=== PATIENT | male | born 1960 | race Caucasian/White ===

== ENCOUNTER 2017-02-19 02:16 | Emergency (ER) | payer MEDICARE, MEDICAID ==
--- NOTE | 2017-02-19 04:20 | ER Document Report ---
ED Extremity Problem, Upper - General Chief Complaint: Shoulder Pain Stated Complaint: SHOULDER PAIN Time Seen by Provider: 02/19/17 03:35 Mode of Arrival: Ambulatory Information source: Patient Notes: 56-year-old man presents to ED for right shoulder pain. He states he dislocated visit in October and has had pain off and on since then. He states she has Parkinson's and this makes the pain in his shoulder worse. He thinks the last couple days it is jumped out of its socket again and now the pain is worse. TRAVEL OUTSIDE OF THE [place] IN LAST 30 DAYS: No - HPI Patient complains to provider of: Shoulder Onset: Other - Overall days Recent injury: No Where: Home Quality of pain: Achy, Sharp Severity of pain: Severe Pain Level: 5 Associated symptoms: None Exacerbated by: Movement Relieved by: Rest, Positioning Similar symptoms previously: Yes Recently seen / treated by doctor: No - Related Data Allergies/Adverse Reactions: Penicillins Allergy (Unknown, Verified 02/19/17 05:07) Anaphylaxis Past Medical History - General Information source: Patient - Social History Smoking Status: Never Smoker Cigarette use (# per day): No Chew tobacco use (# tins/day): No Smoking Education Provided: No Frequency of alcohol use: None Drug Abuse: None Occupation: disability Lives with: Alone Family History: Reviewed & Not Pertinent Patient has suicidal ideation: No Patient has homicidal ideation: No - Past Medical History Cardiac Medical History: Reports: Hx Hypertension Pulmonary Medical History: Reports: None EENT Medical History: Reports: None Neurological Medical History: Reports: Other - Parkinson's Endocrine Medical History: Reports: None Renal/ Medical History: Reports: None Malignancy Medical History: Reports None GI Medical History: Reports: None Musculoskeltal Medical History: Reports Hx Arthritis, Reports Hx Musculoskeletal Deformity, Reports Hx Musculoskeletal Trauma Skin Medical History: Reports None Psychiatric Medical History: Reports: None Traumatic Medical History: Reports: Hx Fractures Infectious Medical History: Reports: None Past Surgical History: Reports: Hx Orthopedic Surgery - Herniated disc to the neck and lumbar area repaired, Other - Cataracts Review of Systems - Review of Systems Constitutional: No symptoms reported EENT: No symptoms reported Cardiovascular: No symptoms reported Respiratory: No symptoms reported Gastrointestinal: No symptoms reported Genitourinary: No symptoms reported Male Genitourinary: No symptoms reported Musculoskeletal: Joint pain - Right shoulder pain and stiffness Skin: No symptoms reported Hematologic/Lymphatic: No symptoms reported Neurological/Psychological: Tremor - Parkinson's Physical Exam - Vital signs Vitals: Temp Pulse Resp BP Pulse Ox 98.9 F 93 20 143/85 H 98 02/19/17 02:21 02/19/17 02:21 02/19/17 02:21 02/19/17 02:21 02/19/17 02:21 Interpretation: Normal - General General appearance: Appears well, Alert - HEENT Head: Normocephalic, Atraumatic Eyes: Normal Pupils: PERRL - Respiratory Respiratory status: No respiratory distress Chest status: Nontender Breath sounds: Normal Chest palpation: Normal - Cardiovascular Rhythm: Regular Heart sounds: Normal auscultation Murmur: No - Abdominal Inspection: Normal Distension: No distension Bowel sounds: Normal Tenderness: Nontender Organomegaly: No organomegaly - Back Back: Normal, Nontender - Extremities General upper extremity: Normal inspection, Normal color, Normal temperature General lower extremity: Normal inspection, Nontender, Normal color, Normal ROM , Normal temperature, Normal weight bearing. No: America's sign Shoulder: Tender, Limited ROM - Neurological Neuro grossly intact: Yes Cognition: Normal Orientation: AAOx4 [place] Coma Scale Eye Opening: Spontaneous [place] Coma Scale Verbal: Oriented Jose G Coma Scale Motor: Obeys Commands Jose G Coma Scale Total: 15 Speech: Normal Motor strength normal: LUE, RUE, LLE, RLE Sensory: Normal - Psychological Associated symptoms: Normal affect, Normal mood - Skin Skin Temperature: Warm Skin Moisture: Dry Skin Color: Normal Course - Vital Signs Vital signs: Temp Pulse Resp BP Pulse Ox 97.6 F 84 20 137/95 H 94 02/19/17 05:59 02/19/17 05:59 02/19/17 05:59 02/19/17 05:59 02/19/17 05:59 - Diagnostic Test Radiology reviewed: Image reviewed, Reports reviewed Discharge - Discharge Clinical Impression: Right shoulder pain Qualifiers: Chronicity: acute Qualified Code(s): M25.511 - Pain in right shoulder Condition: Stable Disposition: HOME, SELF-CARE Instructions: Use of Emol-Dtc-Jcdzdkl Ibuprofen ([facility]), Family Physicians / Practices Additional Instructions: You were seen today for pain in your right shoulder. Your x-ray negative for any acute injury, you do have degenerative changes to your shoulder. Acetaminophen Acetaminophen may be taken for pain relief or fever control. It's much safer than aspirin, offering a wider range of "safe" dosages. It is safe during . Some brand names are Tylenol, Panadol, Datril, Anacin 3, Tempra, and Liquiprin. Acetaminophen can be repeated every four hours. The following are maximum recommended dosages: WEIGHT Dose Drops Elixir Chewable( 80mg) (LBS.) drprs=droppers tsp=teaspoon 6 40 mg .4 ml (1/2) 6-11 80 mg .8 ml (full) 1/2 tsp 1 tab 12-16 120 mg 1 1/2 drprs 3/4 tsp 1 1/2 tabs 17-23 160 mg 2 drprs 1 tsp 2 tabs 24-30 240 mg 3 drprs 1 1/2 tsp 3 tabs 30-35 320 mg 2 tsp 4 tabs 36-41 360 mg 2 1/4 tsp 4 1 /2 tabs 42-47 400 mg 2 1/2 tsp 5 tabs 48-53 480 mg 3 tsp 6 tabs 54-59 520 mg 3 1/4 tsp 6 1 /2 tabs 60-64 560 mg 3 1/2 tsp 7 tabs 65-70 600 mg 3 3/4 tsp 7 1 /2 tabs 71-76 640 mg 4 tsp 8 tabs 77-82 720 mg 4 1/2 tsp 9 tabs 83-88 800 mg 5 tsp 10 tabs >89 pounds or adults 650 mg to 900 mg Acetaminophen can be repeated every four hours. Maximum daily dose not to exceed 4000 mg. These maximum recommended dosages are slightly higher than the dosages written on the product container, but these dosages are very safe and well below the toxic dosage for acetaminophen. FOLLOW-UP CARE: If you have been referred to a physician for follow-up care, call the physician s office for an appointment as you were instructed or within the next two days. If you experience worsening or a significant change in your symptoms, notify the physician immediately or return to the Emergency Department at any time for re-evaluation. Forms: Elevated Blood Pressure Referrals: STEPHANIE DENSON DO [ACTIVE STAFF] - Follow up as needed
--- NOTE | 2017-02-19 04:37 | RADIOLOGY REPORT (SQ) ---
EXAM DESCRIPTION: SHOULDER RIGHT 2 OR MORE VIEWS COMPLETED DATE/TIME: 02/19/2017 4:27 am REASON FOR STUDY: pain and decreased rom COMPARISON: None. NUMBER OF VIEWS: Three views. TECHNIQUE: Internal rotation, external rotation, and Y view images acquired of the right shoulder. LIMITATIONS: None. FINDINGS: MINERALIZATION: Normal. BONES: No acute fracture or dislocation. No worrisome bone lesions. Inferior osteophytes in the gleno humeral joint. GLENOHUMERAL JOINT: Inferior osteophytes. ACROMIOCLAVICULAR JOINT: No large osteophytes. SOFT TISSUES: No calcifications. VISUALIZED RIBS, SPINE, AND LUNG: No other significant finding. OTHER: No other significant finding. IMPRESSION: DEGENERATIVE CHANGES. NO ACUTE FINDINGS. TECHNICAL DOCUMENTATION: JOB ID: [id number] [employer]- All Rights Reserved
[2017-02-19 06:01] VITALS: BP 137/95
== END 2017-02-19 05:59 | disposition home or self-care (01) ==
LOC: ER 02:16
DX: M25.511 Pain in right shoulder (principal); G20 Parkinson's disease; I10 Essential (primary) hypertension; Z87.892 Personal history of anaphylaxis; Z88.0 Allergy status to penicillin
CPT/HCPCS: 99283

== ENCOUNTER → 2017-03-05 | Outpatient (CLI) | payer MEDICARE, MEDICAID ==
--- NOTE | 2017-03-05 11:24 | RADIOLOGY REPORT (SQ) ---
EXAM DESCRIPTION: ANKLE RIGHT COMPLETE COMPLETED DATE/TIME: 03/05/2017 11:16 am REASON FOR STUDY: PAIN IN RIGHT ANKLE AND JOINTS OF RIGHT FOOT M25.571 PAIN IN RIGHT ANKLE AND JOIN TS OF RIGHT FOOT COMPARISON: None. NUMBER OF VIEWS: Three views. TECHNIQUE: AP, lateral, and oblique radiographic images acquired of the right ankle. LIMITATIONS: None. FINDINGS: MINERALIZATION: Normal. BONES: Deformity of the medial malleolus which is presumed related to old trauma. Hardware in the di stal fibula. No acute fracture or dislocation. No worrisome bone lesions. JOINTS: No effusions. SOFT TISSUES: No soft tissue swelling. No foreign body. OTHER: No other significant finding. IMPRESSION: OLD TRAUMATIC CHANGES AND HARDWARE. NO DEFINITE ACUTE FINDINGS. TECHNICAL DOCUMENTATION: JOB ID: [id number] [employer]- All Rights Reserved
== END ==
LOC: OD 10:54
PROVIDERS: ATTEND Family Medicine
DX: M25.571 Pain in right ankle and joints of right foot (principal)

== ENCOUNTER 2017-03-20 11:37 | Emergency (ER) | payer MEDICARE, MEDICAID ==
--- NOTE | 2017-03-20 12:33 | ER Document Report ---
HPI - HPI Patient complains to provider of: right ankle pain Pain Level: 4 Context: 56 yo male c/o pain to right ankle. pt reports he flexed his ankle and felt snap. has pain to medial ankle. also c/o ? infected bug bite to lateral ankle Associated Symptoms: None Exacerbated by: Walking Relieved by: Denies Similar symptoms previously: Yes Recently seen / treated by doctor: No - ROS Systems Reviewed and Negative: Yes All other systems reviewed and negative - DERM Skin Color: Normal Past Medical History - General Information source: Patient - Social History Smoking Status: Current Every Day Smoker Frequency of alcohol use: None Drug Abuse: None Lives with: Family Family History: Reviewed & Not Pertinent - Past Medical History Cardiac Medical History: Reports: Hx Hypertension Renal/ Medical History: Denies: Hx Peritoneal Dialysis Musculoskeltal Medical History: Reports Hx Arthritis, Reports Hx Musculoskeletal Deformity, Reports Hx Musculoskeletal Trauma Traumatic Medical History: Reports: Hx Fractures Past Surgical History: Reports: Hx Orthopedic Surgery - Herniated disc to the neck and lumbar area repaired, Other - Cataracts Vertical Provider Document - CONSTITUTIONAL Agree With Documented VS: Yes Exam Limitations: No Limitations - INFECTION CONTROL TRAVEL OUTSIDE OF THE [place] IN LAST 30 DAYS: No - HEENT HEENT: Atraumatic, PERRLA - NECK Neck: Normal Inspection, Supple - RESPIRATORY Respiratory: Breath Sounds Normal O2 Sat by Pulse Oximetry: 93 - CARDIOVASCULAR Cardiovascular: Regular Rate, Regular Rhythm - MUSCULOSKELETAL/EXTREMETIES Musculoskeletal/Extremeties: Tender - right medial malleolus., No Edema. negative: Eccymosis - DERM Integumentary: Warm, Dry - discrete hemorrhagic papular lesion to lateral ankle. no induration or fluctuance Course - Re-evaluation Re-evalutation: 03/20/17 12:32 no fracture. results reviewed with patient. stable for discharge - Vital Signs Vital signs: Temp Pulse Resp BP Pulse Ox 97.6 F 90 18 123/82 93 03/20/17 11:47 03/20/17 11:47 03/20/17 11:47 03/20/17 11:47 03/20/17 11:47 Procedures - Immobilization right ankle Pre-Proc Neuro Vasc Exam: Normal Immobilizer type: Andrea wrap Performed by: PCT Post-Proc Neuro Vasc Exam: Normal Discharge - Discharge Clinical Impression: Insect bite (nonvenomous), right ankle, initial encounter Right ankle sprain Qualifiers: Encounter type: initial encounter Involved ligament of ankle: unspecified ligament Qualified Code(s): S93.401A - Sprain of unspecified ligament of right ankle, initial encounter Condition: Stable Disposition: HOME, SELF-CARE Instructions: Ice Packs ([facility]), Sprained Ankle ([facility]), Andrea Wrap ([facility]), Ice & Elevation ([facility]), Antibiotic Ointment Protection ([facility]) Additional Instructions: Your xrays are negative for fracture wear andrea wrap for comfort and protection ice and elevate ankle as much as possible apply antibiotic ointment to insect bite apply moist heat to insect bite follow up with primary care if symptoms persist Prescriptions: Mupirocin Calcium [Bactroban 2% Cream 15 gm] 1 applic TP DAILY PRN #1 tube PRN Reason:
--- NOTE | 2017-03-20 12:34 | RADIOLOGY REPORT (SQ) ---
EXAM DESCRIPTION: ANKLE RIGHT COMPLETE COMPLETED DATE/TIME: 03/20/2017 12:18 pm REASON FOR STUDY: pain and injury COMPARISON: 03/05/2017 NUMBER OF VIEWS: Three views. TECHNIQUE: AP, lateral, and oblique radiographic images acquired of the right ankle. LIMITATIONS: None. FINDINGS: MINERALIZATION: Normal. BONES: Compression plate on the distal fibula. There are changes in the medial malleolus suggestive of a prior fracture with nonunion. There is no interval change since March 05. JOINTS: No effusions. SOFT TISSUES: No soft tissue swelling. No foreign body. OTHER: No other significant finding. 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 Correlate clinically. TECHNICAL DOCUMENTATION: JOB ID: [id number] [employer]- All Rights Reserved
[2017-03-20 13:29] VITALS: BP 121/82
== END 2017-03-20 13:25 | disposition home or self-care (01) ==
LOC: ER 11:37
DX: S93.401A Sprain of unspecified ligament of right ankle, initial encounter (principal); X58.XXXA Exposure to other specified factors, initial encounter; S90.561A Insect bite (nonvenomous), right ankle, initial encounter; W57.XXXA Bitten or stung by nonvenomous insect and other nonvenomous arthropods, initial encounter; M25.571 Pain in right ankle and joints of right foot; I10 Essential (primary) hypertension; F17.200 Nicotine dependence, unspecified, uncomplicated
CPT/HCPCS: 99283

== ENCOUNTER 2017-04-11 15:52 | Emergency (ER) | payer MEDICARE, MEDICAID ==
[2017-04-11 16:15] VITALS: BP 148/89
--- NOTE | 2017-04-11 17:54 | RADIOLOGY REPORT (SQ) ---
EXAM DESCRIPTION: ANKLE RIGHT COMPLETE COMPLETED DATE/TIME: 04/11/2017 5:44 pm REASON FOR STUDY: increase in pain to right ankle COMPARISON: 03/20/2017 and 03/05/2017. NUMBER OF VIEWS: Three views. TECHNIQUE: AP, lateral, and oblique radiographic images acquired of the right ankle. LIMITATIONS: None. FINDINGS: MINERALIZATION: Normal. BONES: No acute fracture or dislocation. Stable hardware in the distal fibula. Old posttraumatic fi ndings of the medial malleolus. No worrisome bone lesions. Incidental heel spur. JOINTS: No effusions. SOFT TISSUES: No soft tissue swelling. No foreign body. OTHER: No other significant finding. IMPRESSION: STABLE SURGICAL CHANGES WITH HARDWARE AND OLD POSTTRAUMATIC FINDINGS. NO CHANGE. NO AC [place] FINDINGS. TECHNICAL DOCUMENTATION: JOB ID: [id number] [employer]- All Rights Reserved
--- NOTE | 2017-04-11 18:31 | ER Document Report ---
ED Extremity Problem, Lower - General Chief Complaint: Ankle Pain Stated Complaint: RIGHT ANKLE PAIN Time Seen by Provider: 04/11/17 16:34 Mode of Arrival: Ambulatory Information source: Patient Notes: 56-year-old male presents to ED for count complaint of continued right ankle pain. He has a history of a fracture and surgery to this right ankle and states that he thinks he has injured his previous injury. He states it feels like the porfirio is slipped in his ankle. He states he has increased pain when he ambulates. TRAVEL OUTSIDE OF THE [place] IN LAST 30 DAYS: No - HPI Patient complains to provider of: Pain Location: Ankle Occurred: Other - This is a chronic problem that he states increased in pain 4 days ago he has been seen previously for the same pain with repeat x-rays. Onset/Duration: Worse Quality of pain: Sharp Severity: Moderate Pain Level: 3 Recent injury: No Associated symptoms: Painful ambulation Exacerbated by: Movement, Walking Relieved by: Nothing - Related Data Allergies/Adverse Reactions: Penicillins Allergy (Unknown, Verified 04/11/17 16:11) Anaphylaxis Past Medical History - General Information source: Patient - Social History Smoking Status: Former Smoker Cigarette use (# per day): No Chew tobacco use (# tins/day): No Smoking Education Provided: No Frequency of alcohol use: None Drug Abuse: None Lives with: Alone Family History: CAD, Hyperlipidemia, Hypertension, Malignancy. denies: Arthritis, COPD, CVA, Thyroid Disfunction Patient has suicidal ideation: No Patient has homicidal ideation: No - Past Medical History Cardiac Medical History: Reports: Hx Hypertension Pulmonary Medical History: Reports: None EENT Medical History: Reports: None Neurological Medical History: Reports: Other - Parkinson's Endocrine Medical History: Reports: None Renal/ Medical History: Reports: None. Denies: Hx Peritoneal Dialysis Malignancy Medical History: Reports None GI Medical History: Reports: None Musculoskeltal Medical History: Reports Hx Arthritis, Reports Hx Musculoskeletal Deformity, Reports Hx Musculoskeletal Trauma Skin Medical History: Reports None Psychiatric Medical History: Reports: None Traumatic Medical History: Reports: Hx Fractures Infectious Medical History: Reports: None Past Surgical History: Reports: Hx Orthopedic Surgery - Herniated disc to the neck and lumbar area repaired, Other - Cataracts - Immunizations Immunizations up to date: Yes Hx Diphtheria, Pertussis, Tetanus Vaccination: Yes Review of Systems - Review of Systems Constitutional: No symptoms reported EENT: No symptoms reported Cardiovascular: No symptoms reported Respiratory: No symptoms reported Gastrointestinal: No symptoms reported Genitourinary: No symptoms reported Male Genitourinary: No symptoms reported Musculoskeletal: Other - Right ankle pain Skin: No symptoms reported Hematologic/Lymphatic: No symptoms reported Neurological/Psychological: Tremor - From Parkinson's -: Yes All other systems reviewed and negative Physical Exam - Vital signs Vitals: Temp Pulse Resp BP Pulse Ox 97.6 F 92 20 148/89 H 95 04/11/17 16:11 04/11/17 16:11 04/11/17 16:11 04/11/17 16:11 04/11/17 16:11 Interpretation: Normal - General General appearance: Appears well, Alert - HEENT Head: Normocephalic, Atraumatic Eyes: Normal Pupils: PERRL - Respiratory Respiratory status: No respiratory distress Chest status: Nontender Breath sounds: Normal Chest palpation: Normal - Cardiovascular Rhythm: Regular Heart sounds: Normal auscultation Murmur: No - Abdominal Inspection: Normal Distension: No distension Bowel sounds: Normal Tenderness: Nontender Organomegaly: No organomegaly - Back Back: Normal, Nontender - Extremities General upper extremity: Normal inspection, Nontender, Normal color, Normal ROM , Normal temperature General lower extremity: Normal inspection, Normal color, Normal ROM, Normal temperature. No: America's sign Ankle: Other - Complains of pain when ambulating to his right ankle. He does have a surgical scar to this area. There is no swelling no bruising no signs of any infection no inflammation - Neurological Neuro grossly intact: Yes Cognition: Normal Orientation: AAOx4 Jose G Coma Scale Eye Opening: Spontaneous Jose G Coma Scale Verbal: Oriented [place] Coma Scale Motor: Obeys Commands Jose G Coma Scale Total: 15 Speech: Normal Motor strength normal: LUE, RUE, LLE, RLE Sensory: Normal - Psychological Associated symptoms: Normal affect, Normal mood - Skin Skin Temperature: Warm Skin Moisture: Dry Skin Color: Normal Course - Re-evaluation Re-evalutation: 04/11/17 21:31 Discussed x-ray with patient. Patient instructed to continue using his current pain medicines and to follow-up with his orthopedic surgeon. He states he has an appointment with the surgeon on Saturday. Patient encouraged to please keep this appointment. - Vital Signs Vital signs: Temp Pulse Resp BP Pulse Ox 97.6 F 92 20 148/89 H 95 04/11/17 16:11 04/11/17 16:11 04/11/17 16:11 04/11/17 16:11 04/11/17 16:11 - Diagnostic Test Radiology reviewed: Image reviewed, Reports reviewed Discharge - Discharge Clinical Impression: Right ankle pain Qualifiers: Chronicity: chronic Qualified Code(s): M25.571 - Pain in right ankle and joints of right foot Condition: Stable Disposition: HOME, SELF-CARE Additional Instructions: No changes to your previous x-ray. Follow up with your orthopedic surgeon and continue your current pain medication Ice & Elevation Apply ice packs frequently against the painful area. Many different schedules are recommended, such as "20 minutes on, 20 minutes off" or "one hour ice, two hours rest." If you need to work, you may need to go longer between ice treatments. You should plan to have the area ice packed AT LEAST one- fourth of the time. The ice should be applied over the wrap, tape, or splint, or over a layer of cloth -- not directly against the skin. Some ice bags have a built-in cloth and can be put directly on the skin. Your injured part should be elevated as much as possible over the next 48 hours. Try to keep the injury above the level of the heart. Avoid use of the injured area. Elevation and rest will decrease the swelling. FOLLOW-UP CARE: If you have been referred to a physician for follow-up care, call the physician s office for an appointment as you were instructed or within the next two days. If you experience worsening or a significant change in your symptoms, notify the physician immediately or return to the Emergency Department at any time for re-evaluation. Forms: Elevated Blood Pressure
== END 2017-04-11 19:06 | disposition home or self-care (01) ==
LOC: ER 15:52
DX: M25.571 Pain in right ankle and joints of right foot (principal); G89.29 Other chronic pain; Z87.81 Personal history of (healed) traumatic fracture; Z87.891 Personal history of nicotine dependence
CPT/HCPCS: 99283

== ENCOUNTER → 2017-11-15 | Outpatient (CLI) | payer MEDICARE, MEDICAID ==
[2017-11-15 12:46] LABS: ABSOLUTE EOSINOPHILS # (AUTO) 0.3 10^3/uL (0.0-0.6); ABSOLUTE LYMPHOCYTES (AUTO) 2.8 10^3/uL (0.5-4.7); ABSOLUTE MONOCYTES (AUTO) 0.7 10^3/uL (0.1-1.4); ABSOLUTE NEUT (AUTO) 4.2 10^3/uL (1.7-8.2); BASOPHILS % (AUTO) 0.2 % (0-2); EOSINOPHILS % (AUTO) 3.2 % (0-6); HEMATOCRIT 42.7 % (37.9-51.0); HEMOGLOBIN 14.3 g/dL (13.5-17.0); LYMPHOCYTES % (AUTO) 34.8 % (13-45); MEAN CORPUSCULAR HEMOGLOBIN 29.8 pg (27.0-33.4); MEAN CORPUSCULAR HGB CONC 33.4 g/dL (32.0-36.0); MEAN CORPUSCULAR VOLUME 89 fl (80-97); MONOCYTES % (AUTO) 8.9 % (3-13); PLATELET COUNT 210 10^3/uL (150-450); RED BLOOD COUNT 4.79 10^6/uL (4.35-5.55); RED CELL DISTRIBUTION WIDTH 14.1 % (11.5-14.0); SEGMENTED NEUTROPHILS % (AUTO) 52.9 % (42-78); TOTAL CELLS COUNTED % (AUTO) 100 %
[2017-11-15 13:08] LABS: APPEARANCE,URINE CLEAR; BILIRUBIN,URINE NEGATIVE (NEGATIVE); GLUCOSE, URINE NEGATIVE (NEGATIVE); KETONES,URINE TRACE mg/dL (NEGATIVE); LEUKOCYTE ESTERASE,URINE MODERATE (NEGATIVE); NITRITE,URINE NEGATIVE (NEGATIVE); PROTEIN,URINE NEGATIVE (NEGATIVE); URINE SPECIFIC GRAVITY 1.026
[2017-11-15 13:10] LABS: COLOR,URINE YELLOW
[2017-11-15 13:13] LABS: ANION GAP 15 (5-19); BLOOD UREA NITROGEN 20 mg/dL (7-20); CALCIUM 9.2 mg/dL (8.4-10.2); CARBON DIOXIDE 27 mmol/L (22-30); CHLORIDE 104 mmol/L (98-107); GLUCOSE 94 mg/dL (75-110); POTASSIUM 3.9 mmol/L (3.6-5.0); SODIUM 145.7 mmol/L (137-145)
--- NOTE | 2017-11-15 13:40 | EKG REPORT ---
SEVERITY:- BORDERLINE ECG - SINUS RHYTHM VENTRICULAR PREMATURE COMPLEX PROBABLE LEFT ATRIAL ABNORMALITY : Confirmed by: Aiden Yoo MD 15-Nov-2017 13:39:26
--- NOTE | 2017-11-15 13:40 | RADIOLOGY REPORT (SQ) ---
EXAM DESCRIPTION: CHEST PA/LATERAL COMPLETED DATE/TIME: 11/15/2017 12:34 pm REASON FOR STUDY: PRE-OP COMPARISON: None. EXAM PARAMETERS: NUMBER OF VIEWS: two views TECHNIQUE: Digital Frontal and Lateral radiographic views of the chest acquired. RADIATION DOSE: NA LIMITATIONS: none FINDINGS: LUNGS AND PLEURA: No opacities, masses or pneumothorax. No pleural effusion. MEDIASTINUM AND HILAR STRUCTURES: No masses or contour abnormalities. HEART AND VASCULAR STRUCTURES: Heart normal size. No evidence for failure. BONES: No acute findings. HARDWARE: None in the chest. OTHER: No other significant finding. IMPRESSION: NO SIGNIFICANT RADIOGRAPHIC FINDING IN THE CHEST. TECHNICAL DOCUMENTATION: JOB ID: [id number] [employer]- All Rights Reserved Reading location - IP/workstation name: [email or web address]
== END ==
LOC: OD 11:22
PROVIDERS: ATTEND Orthopaedic Surgery
DX: Z01.818 Encounter for other preprocedural examination (principal); M19.011 Primary osteoarthritis, right shoulder
CPT/HCPCS: 36415; 71046; 80048; 81001; 85025; 93005; 93010

== ENCOUNTER 2017-11-16 04:46 | Emergency (ER) | payer MEDICARE, MEDICAID ==
--- NOTE | 2017-11-16 05:35 | RADIOLOGY REPORT (SQ) ---
EXAM DESCRIPTION: SHOULDER RIGHT 2 OR MORE VIEWS CLINICAL HISTORY: 56 years, Male, possible deformity COMPARISON: None. NUMBER OF VIEWS: 3 LIMITATIONS: None. FINDINGS: Anterior dislocation/subluxation of the right glenohumeral joint. Lower cervical hardware fusion. IMPRESSION: Anterior dislocation/subluxation of the right glenohumeral joint.
[2017-11-16] MEDS ORDERED: FENTANYL CITRATE INJ/PF 100 MCG/2 ML AMPUL IV ONE (05:59)
--- NOTE | 2017-11-16 05:59 | ER Document Report ---
ED Medical Screen (RME) - General Chief Complaint: Shoulder Injury Stated Complaint: SHOULDER INJURY Time Seen by Provider: 11/16/17 05:56 Information source: Patient Notes: Patient states he sat up in bed and felt his right shoulder dislocate. Patient states he has had this problem happen in the past and he frequently requires sedation to have it reduced. Patient has a history of Parkinson's, hypertension , hyperlipidemia. I have greeted and performed a rapid initial assessment of this patient. A comprehensive ED assessment and evaluation of the patient, analysis of test results and completion of the medical decision making process will be conducted by additional ED providers. TRAVEL OUTSIDE OF THE [place] IN LAST 30 DAYS: No - Related Data Allergies/Adverse Reactions: Penicillins Allergy (Unknown, Verified 04/11/17 16:11) Anaphylaxis Past Medical History - Social History Frequency of alcohol use: None Drug Abuse: None - Past Medical History Cardiac Medical History: Reports: Hx Hypertension Renal/ Medical History: Denies: Hx Peritoneal Dialysis Musculoskeltal Medical History: Reports Hx Arthritis, Reports Hx Musculoskeletal Deformity, Reports Hx Musculoskeletal Trauma Traumatic Medical History: Reports: Hx Fractures Past Surgical History: Reports: Hx Orthopedic Surgery - Herniated disc to the neck and lumbar area repaired, Other - Cataracts - Immunizations Immunizations up to date: Yes Hx Diphtheria, Pertussis, Tetanus Vaccination: Yes Physical Exam - Vital signs Vitals: Temp Pulse Resp BP Pulse Ox 98.0 F 98 18 119/87 H 95 11/16/17 04:55 11/16/17 04:55 11/16/17 04:55 11/16/17 04:55 11/16/17 04:55 - Extremities General upper extremity: Tender - right shoulder deformity, tenderness Course - Vital Signs Vital signs: Temp Pulse Resp BP Pulse Ox 98.2 F 82 16 122/88 H 98 11/16/17 05:44 11/16/17 05:44 11/16/17 05:44 11/16/17 05:44 11/16/17 05:44
[2017-11-16] MEDS ORDERED: MORPHINE SULFATE 10 MG/ML INJ IV ONE ×2 (06:33→08:15)
[2017-11-16] MEDS ORDERED: ONDANSETRON HCL INJ/PF 4 MG/2 ML SDV IV ONE (06:33)
[2017-11-16] MEDS ORDERED: NORMAL SALINE 500 ML IV ONE (06:34)
--- NOTE | 2017-11-16 08:16 | RADIOLOGY REPORT (SQ) ---
EXAM DESCRIPTION: CT RT UPPER EXTREMITY WITHOUT COMPLETED DATE/TIME: 11/16/2017 8:02 am REASON FOR STUDY: eval fx/dislocation COMPARISON: 11/16/2017 TECHNIQUE: Axial imaging performed through the rightshoulder with reformatted oblique coronal and ob lique sagittal imaging windowed for bone and soft tissues. All CT scanners at this facility use dose modulation, iterative reconstruction, and/or weight based d osing when appropriate to reduce radiation dose to as low as reasonably achievable (ALARA). [facility]: Dose Right [facility]: CareDose [facility]: Dose Right [facility]: Teradose 4D [facility]: Smart Tesseract Interactive RADIATION DOSE: CT Rad equipment meets quality standard of care and radiation dose reduction techniq ues were employed. CTDIvol: 2.6 mGy. DLP: 60 mGy-cm. mGy. LIMITATIONS: None. FINDINGS: SOFT TISSUES: Unremarkable GLENOHUMERAL JOINT: There is severe osteoarthritic changes with complete loss of joint space. There is impaction of the humeral head upon the glenoid with likely chronic appearing fractures secondary t o this impaction. No definite acute fractures are identified. There is some anterior subluxation of the proximal humeral head in relation to the glenoid. ACROMION AND AC JOINT: Mild to moderate arthrosis ROTATOR CUFF: Limited evaluation GLENOID, LABRUM AND BICEPS: The labrum and biceps tendon are not well evaluated. The glenoid demonst rates bony remodeling, consistent with chronic fracture and arthrosis. OTHER: No other significant finding. IMPRESSION: Severe osteoarthritis of the right glenohumeral joint with anterior subluxation and like ly chronic impaction fractures. No acute, displaced fracture is present. TECHNICAL DOCUMENTATION: JOB ID: [id number] Quality ID # [id number]: Final reports with documentation of one or more dose reduction techniques (e.g., Au tomated exposure control, adjustment of the mA and/or kV according to patient size, use of iterative reconstruction technique) 2010 [employer]- All Rights Reserved Reading location - IP/workstation name: [email or web address]
--- NOTE | 2017-11-16 08:45 | ER Document Report ---
ED General - General Chief Complaint: Shoulder Injury Stated Complaint: SHOULDER INJURY Time Seen by Provider: 11/16/17 05:56 TRAVEL OUTSIDE OF THE [place]. IN LAST 30 DAYS: No - HPI Patient complains to provider of: Right shoulder injury Notes: Patient coming in for right shoulder injury. Patient states he woke up this morning felt pop in his right shoulder is concerned it is dislocated. Patient states his shoulder has been dislocated past. Patient points to use the area most of his pain at supraspinatus or upper shoulder area. Patient states he is has decreased range of motion due to the pain. Patient denies any trauma however states there is a significant pop patient looks uncomfortable upon my evaluation. Patient states he is currently waiting to have surgery by [address] Marquis possibly November 22 3 November 26. Denies fever chills nausea vomiting diarrhea - Related Data Allergies/Adverse Reactions: Penicillins Allergy (Unknown, Verified 04/11/17 16:11) Anaphylaxis Past Medical History - General Information source: Patient - Social History Smoking Status: Never Smoker Chew tobacco use (# tins/day): No Frequency of alcohol use: None Drug Abuse: None Family History: CAD, Hyperlipidemia, Hypertension, Malignancy. denies: Arthritis, COPD, CVA, Thyroid Disfunction Patient has suicidal ideation: No Patient has homicidal ideation: No - Past Medical History Cardiac Medical History: Reports: Hx Hypertension Renal/ Medical History: Denies: Hx Peritoneal Dialysis Musculoskeltal Medical History: Reports Hx Arthritis, Reports Hx Musculoskeletal Deformity, Reports Hx Musculoskeletal Trauma Traumatic Medical History: Reports: Hx Fractures Past Surgical History: Reports: Hx Orthopedic Surgery - Herniated disc to the neck and lumbar area repaired, Other - Cataracts - Immunizations Immunizations up to date: Yes Hx Diphtheria, Pertussis, Tetanus Vaccination: Yes Review of Systems - Review of Systems Constitutional: No symptoms reported EENT: No symptoms reported Cardiovascular: No symptoms reported Respiratory: No symptoms reported Gastrointestinal: No symptoms reported Genitourinary: No symptoms reported Male Genitourinary: No symptoms reported Musculoskeletal: Other - Right shoulder pain Skin: No symptoms reported Hematologic/Lymphatic: No symptoms reported Neurological/Psychological: No symptoms reported -: Yes All other systems reviewed and negative Physical Exam - Vital signs Vitals: Temp Pulse Resp BP Pulse Ox 98.0 F 98 18 119/87 H 95 11/16/17 04:55 11/16/17 04:55 11/16/17 04:55 11/16/17 04:55 11/16/17 04:55 Interpretation: Normal - General General appearance: Appears well, Alert - HEENT Head: Normocephalic, Atraumatic Eyes: Normal Pupils: PERRL - Respiratory Respiratory status: No respiratory distress Chest status: Nontender Breath sounds: Normal Chest palpation: Normal - Cardiovascular Rhythm: Regular Heart sounds: Normal auscultation Murmur: No - Abdominal Inspection: Normal Distension: No distension Bowel sounds: Normal Tenderness: Nontender Organomegaly: No organomegaly - Back Back: Normal, Nontender - Extremities General upper extremity: Nontender, Normal color, Normal temperature. No: Normal inspection - Pain to palpation of the right shoulder with no deformity patient has significant pain to palpation of the supraspinatus muscle. Limited range of motion of the right shoulder cannot raise above 90. Pulses are intact distally. Left shoulder of extremities are unaffected. General lower extremity: Normal inspection, Nontender, Normal color, Normal ROM , Normal temperature, Normal weight bearing. No: [place]'s sign - Neurological Neuro grossly intact: Yes Cognition: Normal Orientation: AAOx4 Jose G Coma Scale Eye Opening: Spontaneous Serafina Coma Scale Verbal: Oriented Serafina Coma Scale Motor: Obeys Commands Jose G Coma Scale Total: 15 Speech: Normal Motor strength normal: LUE, RUE, LLE, RLE Sensory: Normal - Psychological Associated symptoms: Normal affect, Normal mood - Skin Skin Temperature: Warm Skin Moisture: Dry Skin Color: Normal Course - Re-evaluation Re-evalutation: 11/16/17 14:05 Initial x-ray was read as dislocation however my interpretation does not agree with this read. Therefore CT scan was performed showing mild subluxation along with possible chronic fracture of the glenoid. Because of the patient's acute pain this may be more acute. Patient also has does have diffuse osteoarthritis throughout the shoulder. I did discuss the finding of the CT scan with our orthopedist on-call agrees with treatment plan pain medication and sling at this time. Patient will be discharged home - Vital Signs Vital signs: Temp Pulse Resp BP Pulse Ox 97.7 F 76 14 125/73 92 11/16/17 09:40 11/16/17 09:40 11/16/17 09:40 11/16/17 09:40 11/16/17 09:40 Discharge - Discharge Clinical Impression: Severe osteoarthritis Glenoid fracture of shoulder Qualifiers: Encounter type: initial encounter Fracture type: closed Laterality: right Qualified Code(s): S42.141A - Displaced fracture of glenoid cavity of scapula, right shoulder, initial encounter for closed fracture Disposition: SNF-Other Instructions: Oral Narcotic Medication ([facility]), Sling as Treatment ([facility]) Additional Instructions: Your CAT scan of your shoulder today show severe osteoarthritis along with possibly some chronic fractures of the glenoid. No dislocation I did discuss her case with our orthopedic on-call recommends follow-up with Dr. Marquis. He may take the tramadol as prescribed for severe pain would recommend Tylenol Motrin for other regular pain. Return to ER symptoms worsen. Prescriptions: Tramadol HCl [Ultram 50 mg Tablet] 50 mg PO ASDIR PRN #20 tablet PRN Reason:
[2017-11-16 09:17] VITALS: BP 125/73
== END 2017-11-16 09:30 ==
LOC: ER 04:46
DX: S42.141A Displaced fracture of glenoid cavity of scapula, right shoulder, initial encounter for closed fracture (principal); M19.90 Unspecified osteoarthritis, unspecified site; X58.XXXA Exposure to other specified factors, initial encounter; I10 Essential (primary) hypertension; Z88.0 Allergy status to penicillin
CPT/HCPCS: 96376; 99284; 96361; 96374; 96375; 73030; 73200; J2270; J2405; J7040

== ENCOUNTER 2017-11-18 09:10 | Emergency (ER) | payer MEDICARE, MEDICAID ==
[2017-11-18] MEDS ORDERED: NORMAL SALINE 1000 ML 1,000 ML IV ONE (09:31)
--- NOTE | 2017-11-18 09:31 | ER Document Report ---
ED Syncope and Near Syncope - General Chief Complaint: Syncope Stated Complaint: POSSIBLE SYNCOPE Time Seen by Provider: 11/18/17 09:15 Notes: The patient is a 56-year-old male, past medical history hypertension, Parkinson' s, chronic right shoulder pain, presents after he was eating breakfast at [facility] when he had a brief syncopal episode. Patient remained sitting and did not hit his head. He denies chest pain, shortness of breath, nausea, vomiting, back pain, numbness, tingling, headache, hemoptysis, cough or leg swelling. TRAVEL OUTSIDE OF THE [place]. IN LAST 30 DAYS: No - Related Data Allergies/Adverse Reactions: Penicillins Allergy (Unknown, Verified 04/11/17 16:11) Anaphylaxis Past Medical History - General Information source: Patient, Emergency Med Personnel - Social History Smoking Status: Unknown if Ever Smoked Family History: CAD, Hyperlipidemia, Hypertension, Malignancy. denies: Arthritis, COPD, CVA, Thyroid Disfunction - Past Medical History Cardiac Medical History: Reports: Hx Hypertension Renal/ Medical History: Denies: Hx Peritoneal Dialysis Musculoskeltal Medical History: Reports Hx Arthritis, Reports Hx Musculoskeletal Deformity, Reports Hx Musculoskeletal Trauma Traumatic Medical History: Reports: Hx Fractures Past Surgical History: Reports: Hx Orthopedic Surgery - Herniated disc to the neck and lumbar area repaired, Other - Cataracts - Immunizations Immunizations up to date: Yes Hx Diphtheria, Pertussis, Tetanus Vaccination: Yes Review of Systems - Review of Systems Notes: REVIEW OF SYSTEMS: CONSTITUTIONAL: -fevers, -chills EENT: -eye pain, -difficulty swallowing, -nasal congestion CARDIOVASCULAR: -chest pain, +syncope. RESPIRATORY: -cough, -SOB GASTROINTESTINAL: -abdominal pain, -nausea, -vomiting, -diarrhea GENITOURINARY: -dysuria, -hematuria MUSCULOSKELETAL: -back pain, -neck pain SKIN: -rash or skin lesions. HEMATOLOGIC: -easy bruising or bleeding. LYMPHATIC: -swollen, enlarged glands. NEUROLOGICAL: -altered mental status or loss of consciousness, -headache, - neurologic symptoms PSYCHIATRIC: -anxiety, -depression. ALL OTHER SYSTEMS REVIEWED AND NEGATIVE. Physical Exam - Notes Notes: PHYSICAL EXAMINATION: GENERAL: Well-appearing, well-nourished and in no acute distress. HEAD: Atraumatic, normocephalic. EYES: Pupils equal round and reactive to light, extraocular movements intact, sclera anicteric, conjunctiva are normal. ENT: nares patent, oropharynx clear without exudates. Moist mucous membranes. NECK: Normal range of motion, supple without lymphadenopathy LUNGS: Breath sounds clear to auscultation bilaterally and equal. No wheezes rales or rhonchi. HEART: Regular rate and rhythm without murmurs ABDOMEN: Soft, nontender, normoactive bowel sounds. No guarding, no rebound. No masses appreciated. EXTREMITIES: Normal range of motion, no pitting or edema. No cyanosis. NEUROLOGICAL: Cranial nerves grossly intact. Normal speech, normal gait. Normal sensory and motor exams. PSYCH: Normal mood, normal affect. SKIN: Warm, Dry, normal turgor, no rashes or lesions noted. Course - Re-evaluation Re-evalutation: 56-year-old male presents after a brief syncopal episode this morning. Patient slightly hypotensive after taking his morning blood pressure medications. He has infrequent PVCs while on the monitor, but no other arrhythmias. EKG shows normal intervals. Patient is low risk for PE, but unable to PERC out due to age. He has a negative d-dimer, so PE is ruled-out. 11/18/17 11:31 Pt is in the low risk group for serious outcome using the [place] Syncope Rules. Patient's blood pressure normalized after a small amount of fluids. Suspect that his blood pressure medication dosages may be too high. No signs of sepsis at this time. Will have him half his Enalapril dose. Patient given very strict return precautions and he understands. - Laboratory Result Diagrams: 11/18/17 09:33 11/18/17 10:36 Laboratory results interpreted by me: 11/18/17 10:36 Potassium 3.5 L ALT 12 L - Diagnostic Test Radiology reviewed: Image reviewed, Reports reviewed Radiology results interpreted by me: CXR: NAD - EKG Interpretation by Me EKG shows normal: Sinus rhythm, [place], Intervals, QRS Complexes, ST-T Waves When compared to previous EKG there are: No significant change Additional EKG results interpreted by me: QTc 469, single PVC Discharge - Discharge Clinical Impression: Syncope Qualifiers: Syncope type: unspecified Qualified Code(s): R55 - Syncope and collapse Condition: Stable Additional Instructions: Cut your enalapril dose to 10 mg daily, as the higher dose may be causing slightly low blood pressure. Return to the ER if you have any worsening symptoms or any other concerns. SYNCOPAL EPISODE: Syncope (fainting or near-fainting) can occur from many different health problems. Or it can be a simple fainting spell requiring no treatment. It is safe for you to go home, but further evaluation will likely be necessary. Your work-up may include tests for internal bleeding, heart disease, medication problems, or near-strokes. Tests are not always required, however, depending on the nature of your problem. The warning signs of an impending faint include: dizziness, lightheadedness , nausea, hot flashes, tingling, and weakness. If this happens, lay down and put your feet up, then wait until all of these symptoms have passed before standing up again. If these episodes become recurrent, or if you develop chest pain, heart palpitations, mental confusion, blurred vision, or headache, then you should call the physician, or go to the emergency room. ALTERED MENTAL STATUS: An altered mental status is a change in the normal functioning of the brain. This alteration of function can range from minor decreased brain function with some forgetfulness and confusion to complete loss of consciousness and coma. There are many possible causes of an altered mental status and include brain injuries such as trauma or strokes, problems with oxygen supply to the brain, fever and infections of the brain and/or elsewhere in the body, metabolic abnormalities such as low or high blood sugar, overdoses or excessive medication ingestion, and mental and psychiatric illnesses. Sometimes the altered mental status resolves and a definite cause is not determined. If a cause for your altered mental status was found, it has likely been corrected. Your evaluation has not shown any condition that requires that you be admitted to the hospital. It is believed that you are safe to lelave and return to your home. If you have a return of your symptoms, you should return for re-evaluation. NORMAL EXAM AND WORKUP: At this time, your examination and workup show no significant abnormality. No significant abnormal physical findings were noted. All laboratory, EKG, and imaging (x-ray, CT scans, ultrasound) studies that were ordered show no significant abnormality. Although your examination and all studies that were ordered showed no significant abnormal finding, there are no examinations and no studies that are 100% accurate. There is always the possibility that some abnormality could exist and not be detected with physical examination or within the limits and capabilities of laboratory and other studies. You should return or follow up as you were instructed on your visit today for further evaluation if your symptoms do not resolve. FOLLOW-UP CARE: If you have been referred to a physician for follow-up care, call the physician s office for an appointment as you were instructed or within the next two days. If you experience worsening or a significant change in your symptoms, notify the physician immediately or return to the Emergency Department at any time for re-evaluation. Referrals: RICO IBANEZ DIRECTOR POST [Primary Care Provider] - Follow up as needed
[2017-11-18 09:48] LABS: ABSOLUTE EOSINOPHILS # (AUTO) 0.2 10^3/uL (0.0-0.6); ABSOLUTE LYMPHOCYTES (AUTO) 1.6 10^3/uL (0.5-4.7); ABSOLUTE MONOCYTES (AUTO) 0.5 10^3/uL (0.1-1.4); ABSOLUTE NEUT (AUTO) 3.9 10^3/uL (1.7-8.2); BASOPHILS % (AUTO) 0.4 % (0-2); EOSINOPHILS % (AUTO) 3.4 % (0-6); HEMATOCRIT 40.5 % (37.9-51.0); HEMOGLOBIN 13.7 g/dL (13.5-17.0); LYMPHOCYTES % (AUTO) 25.4 % (13-45); MEAN CORPUSCULAR HEMOGLOBIN 30.2 pg (27.0-33.4); MEAN CORPUSCULAR HGB CONC 33.7 g/dL (32.0-36.0); MEAN CORPUSCULAR VOLUME 90 fl (80-97); MONOCYTES % (AUTO) 8.4 % (3-13); PLATELET COUNT 205 10^3/uL (150-450); RED BLOOD COUNT 4.52 10^6/uL (4.35-5.55); RED CELL DISTRIBUTION WIDTH 13.9 % (11.5-14.0); SEGMENTED NEUTROPHILS % (AUTO) 62.4 % (42-78); TOTAL CELLS COUNTED % (AUTO) 100 %; WHITE BLOOD COUNT 6.3 10^3/uL (4.0-10.5)
--- NOTE | 2017-11-18 10:24 | RADIOLOGY REPORT (SQ) ---
EXAM DESCRIPTION: CHEST SINGLE VIEW COMPLETED DATE/TIME: 11/18/2017 9:57 am REASON FOR STUDY: syncope COMPARISON: 11/15/2017 chest films EXAM PARAMETERS: NUMBER OF VIEWS: One view. TECHNIQUE: Single frontal radiographic view of the chest acquired. RADIATION DOSE: NA LIMITATIONS: None. FINDINGS: LUNGS AND PLEURA: No opacities, masses or pneumothorax. No pleural effusion. MEDIASTINUM AND HILAR STRUCTURES: No masses. Contour normal. HEART AND VASCULAR STRUCTURES: Heart normal in size. Normal vasculature. BONES: No acute findings. HARDWARE: None in the chest. OTHER: No other significant finding. IMPRESSION: NO ACUTE RADIOGRAPHIC FINDING IN THE CHEST. TECHNICAL DOCUMENTATION: JOB ID: [id number] 1978 [employer]- All Rights Reserved Reading location - IP/workstation name: [email or web address]
[2017-11-18 11:11] LABS: ALANINE AMINOTRANSFERASE 12 U/L (21-72); ALBUMIN 3.8 g/dL (3.5-5.0); ALKALINE PHOSPHATASE 50 U/L (38-126); ANION GAP 10 (5-19); ASPARTATE AMINO TRANSFERASE 18 U/L (17-59); BILIRUBIN,DIRECT 0.3 mg/dL (0.0-0.4); BILIRUBIN,TOTAL 0.5 mg/dL (0.2-1.3); BLOOD UREA NITROGEN 15 mg/dL (7-20); CALCIUM 8.7 mg/dL (8.4-10.2); CARBON DIOXIDE 30 mmol/L (22-30); CHLORIDE 102 mmol/L (98-107); CREATINE KINASE 132 U/L (55-170); GLUCOSE 97 mg/dL (75-110); POTASSIUM 3.5 mmol/L (3.6-5.0); SODIUM 141.6 mmol/L (137-145); TOTAL PROTEIN 6.5 g/dL (6.3-8.2)
[2017-11-18 13:37] LABS: APPEARANCE,URINE CLEAR; BILIRUBIN,URINE NEGATIVE (NEGATIVE); COLOR,URINE AMBER; GLUCOSE, URINE NEGATIVE (NEGATIVE); KETONES,URINE TRACE mg/dL (NEGATIVE); LEUKOCYTE ESTERASE,URINE MODERATE (NEGATIVE); NITRITE,URINE NEGATIVE (NEGATIVE); PROTEIN,URINE 30 mg/dL (NEGATIVE); URINE SPECIFIC GRAVITY 1.018
[2017-11-18] MEDS ORDERED: ACETAMINOPHEN 325 MG TABLET PO ONE (14:21)
--- NOTE | 2017-11-18 15:12 | EKG REPORT ---
SEVERITY:- NORMAL ECG - SINUS RHYTHM VPC : Confirmed by: Monty Augustine 18-Nov-2017 15:11:24
[2017-11-18 15:58] VITALS: BP 107/62
== END 2017-11-18 15:48 | disposition home or self-care (01) ==
LOC: ER 09:10
DX: R55 Syncope and collapse (principal); I10 Essential (primary) hypertension; Z88.0 Allergy status to penicillin
CPT/HCPCS: 93005; 99285; 96360; 36415; 82550; 83735; 85025; 80053; 81001; 84484; 85379; 71045; 93010; A9270; J7030

== ENCOUNTER 2017-11-19 18:30 | Emergency (ER) | payer MEDICARE, MEDICAID ==
[2017-11-19] MEDS ORDERED: CARBIDOPA/LEVODOPA 25-100 MG TABLET PO ONE (18:44)
[2017-11-19] MEDS ORDERED: DIPHENHYDRAMINE HCL 50 MG/ML VIAL IM ONE (18:45)
--- NOTE | 2017-11-19 18:48 | ER Document Report ---
ED General - General Stated Complaint: SLURRED SPEECH Time Seen by Provider: 11/19/17 18:40 Cannot obtain history due to: Mentally challenged, Other - Speech impairment Notes: Patient is a 56-year-old male with a past, hypertension, hyperlipidemia who presents with slurred speech. Staff at [facility] report that this started at some point prior to 3 PM but do not know an exact time of onset. Patient was apparently in the emergency department yesterday and was not exhibiting any symptoms. The patient denies any complaints whatsoever, is actually talking very rapidly, intermittently intelligible speech but often difficult to understand. He has apparently recently had multiple changes in the dosing of his carbidopa levodopa. History is otherwise limited secondary to the patient' s behavior at time of presentation TRAVEL OUTSIDE OF THE [place] IN LAST 30 DAYS: No - Related Data Allergies/Adverse Reactions: Penicillins Allergy (Unknown, Verified 11/19/17 09:31) Anaphylaxis Past Medical History - General Information source: Patient, Emergency Med Personnel - Social History Smoking Status: Never Smoker Frequency of alcohol use: None Drug Abuse: None Lives with: [facility] Family History: CAD, Hyperlipidemia, Hypertension, Malignancy. denies: Arthritis, COPD, CVA, Thyroid Disfunction - Past Medical History Cardiac Medical History: Reports: Hx Hypercholesterolemia, Hx Hypertension Renal/ Medical History: Denies: Hx Peritoneal Dialysis Musculoskeltal Medical History: Reports Hx Arthritis, Reports Hx Musculoskeletal Deformity, Reports Hx Musculoskeletal Trauma Traumatic Medical History: Reports: Hx Fractures Past Surgical History: Reports: Hx Orthopedic Surgery - Herniated disc to the neck and lumbar area repaired, Other - Cataracts - Immunizations Immunizations up to date: Yes Hx Diphtheria, Pertussis, Tetanus Vaccination: Yes Review of Systems - Review of Systems Notes: Constitutional: Negative for fever. HENT: Negative for sore throat. Eyes: Negative for visual changes. Cardiovascular: Negative for chest pain. Respiratory: Negative for shortness of breath. Gastrointestinal: Negative for abdominal pain, vomiting or diarrhea. Genitourinary: Negative for dysuria. Musculoskeletal: Negative for back pain. Skin: Negative for rash. Neurological: Positive for slurred speech 10 point ROS negative except as marked above and in HPI. Physical Exam - Vital signs Interpretation: Normal Notes: PHYSICAL EXAMINATION: GENERAL: Appears older than stated age but in no acute distress HEAD: Atraumatic, normocephalic. EYES: Pupils equal round and reactive to light, extraocular movements intact, sclera anicteric, conjunctiva are normal. ENT: Edentulous, rolling his tongue around, nares patent, oropharynx clear without exudates. Moist mucous membranes. NECK: Normal range of motion, supple without lymphadenopathy LUNGS: Breath sounds clear to auscultation bilaterally and equal. No wheezes rales or rhonchi. HEART: Regular rate and rhythm without murmurs ABDOMEN: Soft, nontender, normoactive bowel sounds. No guarding, no rebound. No masses appreciated. EXTREMITIES: Normal range of motion, no pitting or edema. No cyanosis. NEUROLOGICAL: Face symmetric. Tongue protrudes midline. Extraocular motions intact. Pupils are 2 mm and equally reactive. Dysarthric speech, tongue rolling, normal gait. 5 out of 5 strength in both the distal and proximal upper and lower extremities bilaterally. Sensation is grossly intact throughout. Finger to nose testing normal. Pronator drift normal. PSYCH: Normal mood, normal affect. SKIN: Warm, Dry, normal turgor, no rashes or lesions noted. Course - Re-evaluation Re-evalutation: 11/19/17 18:47 Patient presents with signs and symptoms most consistent with tardive dyskinesia. He is rolling his tongue around, has intermittently intelligible speech but his speech is often difficult to understand due to lack of control of his tongue. He has no focal neurologic deficits on examination. Face symmetric, equal strength bilaterally. Patient has recently had adjustments of his dosing of carbidopa levodopa which could trigger this. Will give a dose of carbidopa levodopa here as well as intramuscular Benadryl and reassess the patient. 11/19/17 19:48 Patient continues to be mildly agitated although his speech is improving. Will continue to reassess. 11/19/17 20:28 Patient continues to have TD dysarthria. Will consult with [facility] neurology for assistance with management. 11/19/17 21:33 I have discussed with the neurologist at [facility] who likewise is uncertain of how to manage this although she has recommended that we hold the patient's Sinemet for 2 days to see if this improves the patient's symptoms. She does not believe that he requires hospitalization or further evaluation at this time. I have discussed at length the patient and he actually does tell me that he has had similar episodes in the past but it was several years ago. His main concern at this point is that he does not want to go back to [facility]. He denies any new medications other than the recent dosing adjustments to his carbidopa levodopa. I have tried giving the patient Ativan and that likewise has not improved symptoms. At this time point I did not see any benefit and to continue to try to manage the patient the emergency department and think it is best transition him back to his nursing facility with the plan to hold his Sinemet for 2 days. 11/20/17 02:19 Patient is resting comfortably, dyskinetic symptoms seem to have improved. Awaiting transport back to the patient's facility. Discharge - Discharge Clinical Impression: Tardive dyskinesia, Dysarthria Condition: Good Disposition: HOME, SELF-CARE Additional Instructions: The patient's symptoms are likely due to his Sinemet dosing adjustments. I have discussed his case with the neurologist at [facility] who has recommended holding the patient's Sinemet for the next 48 hours as this could be causing the patient's symptoms. His neurologist should be made immediately aware of his symptoms. Referrals: RICO IBANEZ, BEEF SKINNER [Primary Care Provider] - Follow up as needed
[2017-11-19] MEDS ORDERED: ONDANSETRON 4 MG TAB.RAPDIS PO ONE (19:30)
[2017-11-19] MEDS ORDERED: LORAZEPAM 1 MG TABLET PO ONE (20:23)
[2017-11-19] MEDS ORDERED: LEVETIRACETAM 500 MG TABLET PO ONE (20:26)
[2017-11-20] MEDS ORDERED: ACETAMINOPHEN 325 MG TABLET PO ONE (05:02)
[2017-11-20 05:13] VITALS: BP 112/80
== END 2017-11-20 05:17 | disposition home or self-care (01) ==
LOC: ER 18:30
DX: G24.01 Drug induced subacute dyskinesia (principal); R47.1 Dysarthria and anarthria; R47.81 Slurred speech; I10 Essential (primary) hypertension
CPT/HCPCS: 99285; 96372; A9270 ×5; J1200; J3490; S0119

== ENCOUNTER 2017-11-25 05:20 | Inpatient (IN) | payer MEDICARE, MEDICAID ==
[~2017-11-25 05:20] MED LIST: BUPIVACAINE INJ/PF LIPOSOME/PF 266 MG/20 ML SDV IJ PRN; IBUPROFEN 800 MG/NS 250 ML IV PRN; LACTATED RINGERS 1000 ML IV PRN; LANSOPRAZOLE 15 MG TAB.RAP.DR PO PRN; OXYCODONE HCL SR 10 MG TABLET PO PRN
[2017-11-25] MEDS ORDERED: VANCOMYCIN HCL INJ 1000 MG VIAL ONE (05:41)
[2017-11-25] MEDS ORDERED: CEFAZOLIN INJ 1 GM VIAL ONE (06:20)
[2017-11-25] MEDS ORDERED: LIDOCAINE 2% INJ-PF (20 MG/ML) 10 ML AMPUL ONE (06:28)
[2017-11-25] MEDS ORDERED: PROPOFOL INJ 200 MG/20 ML VIAL IV ONE (06:29)
[2017-11-25] MEDS ORDERED: MIDAZOLAM 2 MG/2 ML INJ ONE (06:29)
[2017-11-25] MEDS ORDERED: FENTANYL CITRATE INJ/PF 100 MCG/2 ML AMPUL ONE (06:29)
[2017-11-25] MEDS ORDERED: DEXAMETHASONE SOD PHOSPHATE INJ 4 MG/1 ML VIAL ONE (06:29)
[2017-11-25] MEDS ORDERED: ONDANSETRON HCL INJ/PF 4 MG/2 ML SDV ONE (06:29)
[2017-11-25] MEDS ORDERED: ACETAMINOPHEN 100 ML IV ONE (06:30)
[2017-11-25] MEDS ORDERED: BUPIVACAINE INJ/PF LIPOSOME/PF 266 MG/20 ML SDV ONE (06:53)
[2017-11-25] MEDS ORDERED: MEPERIDINE HCL/PF INJ 25 MG/1 ML DISP.SYRIN IV PRN (08:32)
[2017-11-25] MEDS ORDERED: ONDANSETRON HCL INJ/PF 4 MG/2 ML SDV IV PRN (08:32)
[2017-11-25] MEDS ORDERED: PROMETHAZINE HCL INJ 25 MG/1 ML VIAL IV PRN ×2 (08:32)
[2017-11-25] MEDS ORDERED: DIPHENHYDRAMINE HCL 50 MG/ML VIAL IV PRN ×2 (08:32→09:37)
[2017-11-25] MEDS ORDERED: FENTANYL CITRATE INJ/PF 100 MCG/2 ML AMPUL IV PRN ×3 (08:32)
[2017-11-25] MEDS ORDERED: MORPHINE SULFATE 10 MG/ML INJ IV PRN (08:32)
--- NOTE | 2017-11-25 09:01 | Operative Report ---
Operative Report DATE OF SURGERY: 11/25/17 PREOPERATIVE DIAGNOSIS: Right shoulder arthritis OPERATION: Right shoulder arthroplasty SURGEON: NORTH ARRIAGA ANESTHESIA: GA TISSUE REMOVED OR ALTERED: Humeral head to pathology ESTIMATED BLOOD LOSS: 100 PROCEDURE: With the patient in a beachchair position on the operating table the right upper extremity forequarter prepped and draped in a sterile fashion. A deltopectoral approach to the right shoulder is performed. The biceps tendon is identified and traced proximally. Its transected at the level of the tunnel and is a tenodesis performed. The dissection continues up the biceps tendon sheath into the rotator cuff exposing the glenohumeral joint. An osteotomy of the lesser to be tuberosities performed for access and for repair at the end of the case for the subscap. The humeral head is delivered into the operating field by external rotation. Access is gained to the the medullary canal from above using appropriate canal finder and then reamed until 11 mm reamer seated. It is then broached for an 11 mm [place] reunion TSA. The broach is left in place. Attention is now turned to the glenoid. The rim of the glenoid is cleared of soft tissue as well as multiple loose bodies. A central peg hole is drilled followed by the 3 appropriate additional pegs to accept a 52 mm Levi reunion TSA glenoid component. The glenoid face is then reamed using an appropriate reamer. Polymethylmethacrylate was mixed and the 52 mm glenoid component is cemented in place. A trial reduction performed with a 52 x 20 mm humeral head which provides excellent stability and fills the soft tissue envelope. At this point the trial broach for the humeral stem and the humeral head are removed. The final 11 mm Reunion TSA stem was impacted into the medullary canal. A 52 x 20 mm humeral head is impacted onto the reverse trunnion. The shoulder is reduced. His merrill care with pulse lavage. The subscap osteotomy and the rotator cuff were repaired using interrupted 2 FiberWire. The retinacular layer as well as the subcutaneous tissue closed using interrupted Vicryl and the skin reapproximated using unique. Sterile compressive dressings applied and the patient's return to the PACU in satisfactory condition.
[2017-11-25] MEDS ORDERED: MORPHINE IM PRN ×2 (09:33)
[2017-11-25] MEDS ORDERED: ONDANSETRON 4 MG TAB.RAPDIS PO PRN (09:33)
[2017-11-25] MEDS: FENTANYL CITRATE INJ/PF 100 MCG/2 ML AMPUL ONE ×2 (09:35→09:45)
[2017-11-25] MEDS ORDERED: TRANEXAMIC ACID INJ/PF 1,000 MG/10 ML SDV IV ONE ×2 (10:00→10:04)
[2017-11-25] MEDS ORDERED: HYDROMORPHONE HCL INJ/PF 2 MG/ML AMPULE ONE (10:04)
--- NOTE | 2017-11-25 10:23 | RADIOLOGY REPORT (SQ) ---
EXAM DESCRIPTION: SHOULDER RIGHT 2 OR MORE VIEWS COMPLETED DATE/TIME: 11/25/2017 10:08 am REASON FOR STUDY: post-op right shoulder M19.019 PRIMARY OSTEOARTHRITIS, UNSPECIFIED SHOULDER COMPARISON: 11/16/2017 NUMBER OF VIEWS: One view TECHNIQUE: A frontal image acquired of the right shoulder. LIMITATIONS: None. FINDINGS: A postoperative image shows a right shoulder arthroplasty in good position. IMPRESSION: Right shoulder arthroplasty. TECHNICAL DOCUMENTATION: JOB ID: [id number] [employer]- All Rights Reserved Reading location - IP/workstation name: [email or web address]
[2017-11-25] MEDS ORDERED: HYDROMORPHONE HCL INJ/PF 2 MG/ML AMPULE IV ONE (12:00)
[2017-11-25] MEDS ORDERED: PHENYLEPHRINE HCL INJ/PF 10 MG/1 ML SDV ONE (13:33)
[2017-11-25] MEDS ORDERED: GLYCOPYRROLATE INJ 0.4 MG/2 ML VIAL ONE (13:33)
[2017-11-25] MEDS: IBUPROFEN 800 MG in NORMAL SALINE 250 ML IV SCH ×2 (14:15→21:29)
[2017-11-25] MEDS: MORPHINE IV PRN ×2 (17:33→23:10)
[2017-11-25] MEDS ORDERED: DEXTROMETHORPHAN PO PRN (18:09)
[2017-11-25] MEDS ORDERED: SIMETH PO PRN (18:09)
[2017-11-25] MEDS ORDERED: ALUMINUM HYD PO PRN (18:09)
[2017-11-25] MEDS ORDERED: MAGNESIUM HYDROXIDE SUSP 30 ML UDCUP PO PRN (18:09)
[2017-11-25] MEDS ORDERED: MAG HYDROX PO PRN (18:09)
[2017-11-25] MEDS ORDERED: ACETAMINOPHEN 500 MG PO PRN (18:09)
[2017-11-25] MEDS ORDERED: LOPERAMIDE HCL 2 MG CAPSULE PO PRN (18:09)
[2017-11-25] MEDS ORDERED: GUAIFENESIN PO PRN (18:09)
[2017-11-25] MEDS ORDERED: [UNRECOGNIZED DRUG - OTHER] PO PRN (18:09)
[2017-11-25] MEDS ORDERED: MAG HYDROX/AL HYDROX/SIMETH SUSP 30 ML UDCUP PO PRN (18:13)
[2017-11-25] MEDS ORDERED: GUAIFENESIN/D-METHORPHAN (200-20 MG) SYRUP 10 ML PO PRN (18:14)
[2017-11-25] MEDS ORDERED: VANCOMYCIN HCL 1,000 MG in DEXTROSE 5%-WATER 250 ML IV ONE (21:00)
[2017-11-25] MEDS ORDERED: OXYCODONE HCL PO SCH (22:00)
[2017-11-26 06:18] LABS: HEMATOCRIT 35.3 % (37.9-51.0); HEMOGLOBIN 11.9 g/dL (13.5-17.0); MEAN CORPUSCULAR HEMOGLOBIN 30.4 pg (27.0-33.4); MEAN CORPUSCULAR HGB CONC 33.8 g/dL (32.0-36.0); MEAN CORPUSCULAR VOLUME 90 fl (80-97); PLATELET COUNT 218 10^3/uL (150-450); RED BLOOD COUNT 3.92 10^6/uL (4.35-5.55); RED CELL DISTRIBUTION WIDTH 14.2 % (11.5-14.0); WHITE BLOOD COUNT 11.5 10^3/uL (4.0-10.5)
[2017-11-26] MEDS: IBUPROFEN 800 MG in NORMAL SALINE 250 ML IV SCH ×3 (06:35→21:59)
[2017-11-26 06:43] LABS: ANION GAP 14 (5-19); BLOOD UREA NITROGEN 15 mg/dL (7-20); CALCIUM 8.6 mg/dL (8.4-10.2); CARBON DIOXIDE 23 mmol/L (22-30); CHLORIDE 104 mmol/L (98-107); GLUCOSE 97 mg/dL (75-110); SODIUM 140.8 mmol/L (137-145)
[2017-11-26 06:46] LABS: POTASSIUM 4.4 mmol/L (3.6-5.0)
--- NOTE | 2017-11-26 07:10 | PDOC PROGRESS REPORT ---
Subjective Progress Note for:: 11/26/17 Reason For Visit: S/P R TSA 56-year-old white male postop day 1 from right total shoulder arthroplasty. Patient complaining of soreness but states "my [id number] pain is gone." Physical Exam Vital Signs: Temp Pulse Resp BP Pulse Ox 36.7 C 85 18 127/69 H 93 11/26/17 00:23 11/26/17 00:23 11/26/17 00:23 11/26/17 00:23 11/26/17 00:23 Intake & Output 11/25/17 11/26/17 11/27/17 06:59 06:59 06:59 Intake Total 0 3808 Output Total 1050 Balance 0 2758 Weight 117.93 kg 117.93 kg General appearance: PRESENT: mild distress Head exam: PRESENT: normocephalic Respiratory exam: PRESENT: unlabored Cardiovascular exam: PRESENT: RRR Musculoskeletal exam: PRESENT: other - Right shoulder dressing clean dry and intact. Ulnar, radial, median nerve motor and sensory function are intact. Results Laboratory Results: 11/26/17 05:29 11/26/17 05:29 11/26/17 11/26/17 05:29 05:29 WBC 11.5 H RBC 3.92 L Hgb 11.9 L Hct 35.3 L MCV 90 MCH 30.4 MCHC 33.8 RDW 14.2 H Plt Count 218 Sodium 140.8 Potassium 4.4 Chloride 104 Carbon Dioxide 23 Anion Gap 14 BUN 15 Creatinine 1.29 H Est GFR ( Amer) > 60 Est GFR (Non-Af Amer) 58 L Glucose 97 Calcium 8.6 Impressions: Shoulder X-Ray 11/25/17 00:00 IMPRESSION: Right shoulder arthroplasty. Status: Imported from PACS Assessment & Plan - Diagnosis (1) Shoulder arthritis Is this a current diagnosis for this admission?: Yes Plan: 56-year-old white male postop day 1 right total shoulder arthroplasty. Tentative plan will be for discharge to a long-term facility. In the interim he can work with physical therapy and gentle range of motion exercises. - Time Time Spent with patient: 15-24 minutes Anticipated discharge: SNF Within: Other
[2017-11-26] MEDS: OXYCODONE HCL IR 5 MG TABLET PO PRN (07:41)
[2017-11-26] MEDS: ACETAMINOPHEN 325 MG TABLET PO PRN ×2 (08:18→12:17)
[2017-11-26] MEDS: LANSOPRAZOLE 30 MG TAB.RAP.DR PO SCH (08:18)
[2017-11-26] MEDS: HYDROCHLOROTHIAZIDE 12.5 MG CAPSULE PO SCH (08:19)
[2017-11-26] MEDS: CARBIDOPA/LEVODOPA 25-100 MG TABLET PO SCH ×3 (08:19→18:10)
[2017-11-26] MEDS: FENOFIBRATE NANOCRYSTALLIZED 48 MG TABLET PO SCH (09:58)
[2017-11-26] MEDS: AMLODIPINE BESYLATE 5 MG TABLET PO SCH (09:59)
[2017-11-26] MEDS: ASPIRIN 81 MG TABLET, ENT COATED PO SCH (09:59)
[2017-11-26] MEDS: LEVOTHYROXINE SODIUM 0.1 MG TABLET PO SCH (10:00)
[2017-11-26] MEDS: OXYCODONE HCL PO SCH ×2 (10:00→21:59)
[2017-11-26] MEDS: ENALAPRIL MALEATE 10 MG TABLET PO SCH (10:00)
[2017-11-26] MEDS ORDERED: HYDROMORPHONE HCL INJ/PF 2 MG/ML AMPULE ONE (12:51)
[2017-11-26] MEDS ORDERED: BISACODYL 10 MG SUPP.RECT PR ONE (17:30)
[2017-11-26] MEDS: HYDROMORPHONE HCL INJ/PF 2 MG/ML AMPULE IV PRN (18:19)
[2017-11-27] MEDS: OXYCODONE HCL IR 5 MG TABLET PO PRN ×2 (00:15→08:05)
[2017-11-27] MEDS: HYDROMORPHONE HCL INJ/PF 2 MG/ML AMPULE IV PRN ×6 (01:02→20:36)
[2017-11-27] MEDS: IBUPROFEN 800 MG in NORMAL SALINE 250 ML IV SCH ×2 (05:42→16:49)
[2017-11-27] MEDS: HYDROCHLOROTHIAZIDE 12.5 MG CAPSULE PO SCH (08:05)
[2017-11-27] MEDS: LANSOPRAZOLE 30 MG TAB.RAP.DR PO SCH (08:06)
[2017-11-27] MEDS: CARBIDOPA/LEVODOPA 25-100 MG TABLET PO SCH ×3 (08:06→16:57)
[2017-11-27] MEDS: FENOFIBRATE NANOCRYSTALLIZED 48 MG TABLET PO SCH (10:25)
[2017-11-27] MEDS: ASPIRIN 81 MG TABLET, ENT COATED PO SCH (10:25)
[2017-11-27] MEDS: AMLODIPINE BESYLATE 5 MG TABLET PO SCH (10:25)
[2017-11-27] MEDS: LEVOTHYROXINE SODIUM 0.1 MG TABLET PO SCH (10:25)
[2017-11-27] MEDS: ENALAPRIL MALEATE 10 MG TABLET PO SCH (10:25)
[2017-11-27] MEDS: OXYCODONE HCL PO SCH ×2 (10:26→21:45)
[2017-11-27] MEDS ORDERED: MAGNESIUM CITRATE 296 ML BOTTLE PO ONE (16:00)
[2017-11-28] MEDS: HYDROMORPHONE HCL INJ/PF 2 MG/ML AMPULE IV PRN ×4 (01:54→12:43)
[2017-11-28] MEDS ORDERED: LEVOTHYROXINE SODIUM 0.1 MG TABLET PO SCH (06:00)
--- NOTE | 2017-11-28 06:38 | PDOC DISCHARGE SUMMARY ---
General - Admit/Disc Date/PCP Admission Date/Primary Care Provider: 11/25/17 05:20 RICO IBANEZ NP Discharge Date: 11/28/17 - Discharge Diagnosis (1) Shoulder arthritis Is this a current diagnosis for this admission?: Yes - Additional Information Resuscitation Status: Full Code Discharge Diet: As Tolerated, Regular Discharge Activity: Balance Activity w/Rest, No Driving, No tub bath Home Medications: Acetaminophen [Mapap] 500 mg PO Q4HP PRN 11/21/17 Amlodipine Besylate 5 mg PO DAILY 11/21/17 Enalapril Maleate [Vasotec 10 mg Tablet] 10 mg PO DAILY 11/21/17 Fenofibrate Nanocrystallized [Fenofibrate] 48 mg PO DAILY 11/21/17 Guaifenesin/Dextromethorphan [Sm Tussin Dm Liquid] 10 ml PO Q6HP PRN 11/21/17 Levothyroxine Sodium 100 mcg PO DAILY 11/21/17 Loperamide HCl [Anti-Diarrheal] 2 mg PO ASDIR PRN 11/21/17 Mag Hydrox/Aluminum Hyd/Simeth [Mintox Plus Tablet Chewable] 30 ml PO ASDIR PRN 11/21/17 Magnesium Hydroxide [Milk of Magnesia] 30 ml PO HSP PRN 11/21/17 [place]-3 Fatty Acids/Fish Oil [Fish Oil 1,000 mg Capsule] 1,000 mg PO DAILY 11/21 Carbidopa/Levodopa [Sinemet 25-100 mg Tablet] 0.5 tab PO MEALS 11/25/17 Hydrochlorothiazide [Hydrodiuril 12.5 mg Capsule] 12.5 mg PO QAM 11/25/17 Aspirin [Ecotrin 81 mg EC Tablet] 81 mg PO DAILY tabec 11/28/17 Oxycodone HCl [Oxy-Ir 5 mg Tablet] 5 mg PO Q6HP PRN tablet 11/28/17 History of Present Illness History of Present Illness: GISSEL ALVA is a 56 year old male with progressive right shoulder pain and functional disability secondary to a glenohumeral osteoarthritis. Patient is admitted for elective right shoulder arthroplasty. Hospital Course Hospital Course: Patient is admitted through the operating where he undergoes uncomplicated right shoulder arthroplasty. Is returned to floor in satisfactory condition. Initially discomfort leads to administration of higher doses of narcotics but over the course of his 3 day hospitalization his need for narcotics is decreased in his ambulatory abilities increased. Because of his social situation in a sling status the patient has elected to be transferred to a alf facility as an interim condition. Physical Exam Vital Signs: Temp Pulse Resp BP Pulse Ox 36.8 C 93 18 133/75 H 95 11/27/17 23:59 11/27/17 23:59 11/27/17 23:59 11/27/17 23:59 11/27/17 23:59 Intake & Output 11/26/17 11/27/17 11/28/17 06:59 06:59 06:59 Intake Total 3808 1545 400 Output Total 1050 725 200 Balance 2758 820 200 Weight 117.93 kg 117.9 kg General appearance: PRESENT: no acute distress Head exam: PRESENT: normocephalic Respiratory exam: PRESENT: unlabored Cardiovascular exam: PRESENT: RRR Pulses: PRESENT: normal radial pulses Vascular exam: PRESENT: normal capillary refill GI/Abdominal exam: PRESENT: soft Rectal exam: PRESENT: deferred Extremities exam: PRESENT: other - Right shoulder dressing from surgery remains clean dry and intact. Right shoulder abductor pillow is in place. Distal neurovascular examination is in place. Neurological exam: PRESENT: alert, awake, oriented to person, oriented to place , oriented to time, oriented to situation Psychiatric exam: PRESENT: appropriate affect, normal mood. ABSENT: homicidal ideation, suicidal ideation Skin exam: PRESENT: dry, intact, warm. ABSENT: cyanosis, rash Results Laboratory Results: 11/26/17 05:29 11/26/17 05:29 Impressions: Shoulder X-Ray 11/25/17 00:00 IMPRESSION: Right shoulder arthroplasty. Status: Imported from PACS Qualifiers - * PATIENT BEING DISCHARGED WITH ANY OF THE FOLLOWING DIAGNOSIS: No VTE patient discharged on overlapping Therapy?: Yes Plan Discharge Plan: Patient to be transferred to a alf facility. There he can be ambulatory ad charlee. Occupational therapy can work on pendulum exercises and active assisted range of motion. Follow-up with Dr. Kandis Cartwright [place] for surgery in 2 weeks for staple removal.
[2017-11-28] MEDS: OXYCODONE HCL IR 5 MG TABLET PO PRN (09:27)
[2017-11-28] MEDS: FENOFIBRATE NANOCRYSTALLIZED 48 MG TABLET PO SCH (09:28)
[2017-11-28] MEDS: CARBIDOPA/LEVODOPA 25-100 MG TABLET PO SCH ×2 (09:28→12:43)
[2017-11-28] MEDS: LANSOPRAZOLE 30 MG TAB.RAP.DR PO SCH (09:29)
[2017-11-28] MEDS: ASPIRIN 81 MG TABLET, ENT COATED PO SCH (09:29)
[2017-11-28] MEDS: ENALAPRIL MALEATE 10 MG TABLET PO SCH (09:30)
[2017-11-28] MEDS: AMLODIPINE BESYLATE 5 MG TABLET PO SCH (09:30)
[2017-11-28] MEDS: HYDROCHLOROTHIAZIDE 12.5 MG CAPSULE PO SCH (09:30)
[2017-11-28 12:45] VITALS: BP 134/68
== END 2017-11-28 16:01 | DRG 483 ==
LOC: INOR 05:20 → 4S 11:01
PROVIDERS: ADMIT Orthopaedic Surgery; ATTEND Orthopaedic Surgery
PROC: 0RRJ0JZ Replacement of Right Shoulder Joint with Synthetic Substitute, Open Approach (ICD-10-PCS; principal; 2017-11-25 07:30)
DX: M19.011 Primary osteoarthritis, right shoulder (principal); E66.3 Overweight; Z68.35 Body mass index [BMI] 35.0-35.9, adult
CPT/HCPCS: 01638; 36415; 80048; 84132; 85027; 88304; 88311; C9290; G8978-GP; G8979-GP; G8987-GO; G8988-GO; J0131; J0690; J1100; J1170; J1741; J2250; J2270; J2370; J2405; J2704; J3010; J3370; J3490; J7050; J7060; L3650

== ENCOUNTER 2017-12-11 21:20 | Observation (INO) | payer MEDICARE, MEDICAID ==
[2017-12-11] MEDS ORDERED: PROPOFOL INJ 200 MG/20 ML VIAL IV ONE (22:45)
[2017-12-11] MEDS ORDERED: NORMAL SALINE 500 ML IV ONE (22:45)
[2017-12-11] MEDS ORDERED: ONDANSETRON HCL INJ/PF 4 MG/2 ML SDV IV ONE (22:52)
--- NOTE | 2017-12-11 22:52 | ER Document Report ---
ED General - General Chief Complaint: Shoulder Pain Stated Complaint: SHOULDER INJURY Time Seen by Provider: 12/11/17 21:58 Notes: Patient is a 56-year-old male who presents with complaint of right shoulder dislocation. He had surgery [address] Marquis. Right shoulder replacement. He says he thinks he rolled over wrong in his sleep. No weakness or numbness into the hand. No other complaints this time. His only medical allergy is penicillin. Patient does have history of sleep apnea. TRAVEL OUTSIDE OF THE [place] IN LAST 30 DAYS: No - Related Data Allergies/Adverse Reactions: Penicillins Allergy (Unknown, Verified 11/19/17 09:31) Anaphylaxis Past Medical History - Social History Smoking Status: Unknown if Ever Smoked Chew tobacco use (# tins/day): No Frequency of alcohol use: None Drug Abuse: None Family History: CAD, Hyperlipidemia, Hypertension, Malignancy. denies: Arthritis, COPD, CVA, Thyroid Disfunction Patient has suicidal ideation: No Patient has homicidal ideation: No - Past Medical History Cardiac Medical History: Reports: Hx Hypercholesterolemia, Hx Hypertension Denies: Hx Atrial Fibrillation, Hx Congestive Heart Failure, Hx Coronary Artery Disease, Hx Heart Attack, Hx Peripheral Vascular Disease, Hx Pulmonary Embolism, Hx Heart Murmur Pulmonary Medical History: Reports: Hx Bronchitis - as a child, Hx Pneumonia, Hx Sleep Apnea - should use one but doesn't have one currently Denies: Hx Asthma, Hx COPD, Hx Respiratory Failure, Hx Tuberculosis Neurological Medical History: Reports: Hx Seizures - as a child. Denies: Hx Cerebrovascular Accident Endocrine Medical History: Reports: Hx Hypothyroidism. Denies: Hx Graves' Disease, Hx Hyperthyroidism Renal/ Medical History: Denies: Hx Benign Prostatic Hyperplasia, Hx End Stage Renal Disease, Hx Kidney Stones, Hx Peritoneal Dialysis Malignancy Medical History: Denies Hx Lung Cancer GI Medical History: Denies: Hx Gastroesophageal Reflux Disease Musculoskeltal Medical History: Reports Hx Arthritis, Denies Hx Fibromyalgia, Denies Hx Multiple Sclerosis, Denies Hx Muscular Dystrophy, Reports Hx Musculoskeletal Deformity, Reports Hx Musculoskeletal Trauma Psychiatric Medical History: Denies: Hx Dementia Traumatic Medical History: Reports: Hx Fractures Past Surgical History: Reports: Hx Appendectomy, Hx Orthopedic Surgery - Herniated disc to the neck and lumbar area repaired, Other - Cataracts. Denies : Hx Bowel Surgery, Hx Cholecystectomy, Hx Coronary Artery Bypass Graft, Hx Gastric Bypass Surgery, Hx Herniorrhaphy, Hx Pacemaker, Hx Tonsillectomy - Immunizations Immunizations up to date: Yes Hx Diphtheria, Pertussis, Tetanus Vaccination: Yes Review of Systems - Review of Systems Notes: My Normal Review Basic REVIEW OF SYSTEMS: CONSTITUTIONAL : Denies fever, chills, or sweats. Denies recent illness. CARDIOVASCULAR: Denies chest pain. RESPIRATORY: Denies cough, cold, or chest congestion. Denies shortness of breath, difficulty breathing, or wheezing. MUSCULOSKELETAL: Shoulder pain and dislocation. SKIN: Denies rash or skin lesions. NEUROLOGICAL: Denies sensory or motor loss. ALL OTHER SYSTEMS REVIEWED AND NEGATIVE. Physical Exam - Vital signs Vitals: Temp Pulse Resp BP Pulse Ox 97.8 F 89 18 115/80 95 12/11/17 21:38 12/11/17 21:38 12/11/17 21:38 12/11/17 21:38 12/11/17 21:38 - Notes Notes: General Appearance: Well nourished, alert, cooperative, no acute distress, mild to moderate obvious discomfort. Vitals: reviewed, See vital signs table. Head: no swelling or tenderness to the head Eyes: PERRL, EOMI, Conjuctiva clear Mouth: No decreasd moisture Throat: No tonsillar inflammation, No airway obstruction, No lymphadenopathy Lungs: No wheezing, No rales, No rhonci, No accessory muscle use, good air exchange bilaterally. Heart: Normal rate, Regular rythm, No murmur, no rub Extremities: strength 5/5 in all extremities, good pulses in all extremities, obvious deformity to the right shoulder consistent right shoulder dislocation. His good distal sensation to the hand. Good pulses. Good capillary refill. Skin: warm, dry, appropriate color, no rash Neuro: speech clear, oriented x 3, normal affect, responds appropriately to questions. Course - Re-evaluation Re-evalutation: 12/11/17 22:[address] Marquis, patient's orthopedic surgeon. Patient is 2 weeks postop from right shoulder replacement. He says it is safe for me to do close reduction here in the ER. Will prepare patient for procedural sedation and reduction. 12/11/17 23:23 I attempted to reduce the patient's shoulder several different techniques. I was unable to get it reduced. This is even with very good sedation using propofol. I did call Dr. Marquis who says that the place patient on 23 hour obs and he will see the patient in the morning and take care of the shoulder. Dictation of this chart was performed using voice recognition software; therefore, there may be some unintended grammatical errors. 12/11/17 23:42 - Vital Signs Vital signs: Temp Pulse Resp BP Pulse Ox 97.8 F 89 18 115/80 95 12/11/17 21:38 12/11/17 21:38 12/11/17 21:38 12/11/17 21:38 12/11/17 21:38 - Laboratory Result Diagrams: 12/11/17 22:44 12/11/17 22:44 Laboratory results interpreted by me: 12/11/17 22:44 RBC 4.18 L Hgb 12.5 L Hct 37.7 L RDW 14.3 H Eosinophils % 6.1 H Discharge - Discharge Clinical Impression: Shoulder dislocation Qualifiers: Encounter type: initial encounter Laterality: right Qualified Code(s): S43.004A - Unspecified dislocation of right shoulder joint, initial encounter Condition: Stable Disposition: ADMITTED OBSERVATION Admitting Provider: Pediatric Hospitalist Unit Admitted: Surgical Floor
--- NOTE | 2017-12-11 22:53 | RADIOLOGY REPORT (SQ) ---
EXAM DESCRIPTION: CR Xr Shoulder 2 Or More Views CLINICAL HISTORY: 56 years, Male, pain COMPARISON: 11/25/2017 NUMBER OF VIEWS: 2 LIMITATIONS: None. FINDINGS: Anteromedial displacement-impaction deformity of right total shoulder arthroplasty hardware. Axillary radiograph can improve sensitivity-specificity. Lower cervical hardware fusion. IMPRESSION: Anteromedial displacement-impaction deformity of right total shoulder arthroplasty hardware. Axillary radiograph can improve sensitivity-specificity.
[2017-12-11] MEDS ORDERED: PROPOFOL 0 ML IV ONE (23:19)
[2017-12-11 23:31] LABS: ABSOLUTE EOSINOPHILS # (AUTO) 0.4 10^3/uL (0.0-0.6); ABSOLUTE LYMPHOCYTES (AUTO) 2.5 10^3/uL (0.5-4.7); ABSOLUTE MONOCYTES (AUTO) 0.6 10^3/uL (0.1-1.4); ABSOLUTE NEUT (AUTO) 3.6 10^3/uL (1.7-8.2); BASOPHILS % (AUTO) 0.5 % (0-2); EOSINOPHILS % (AUTO) 6.1 % (0-6); HEMATOCRIT 37.7 % (37.9-51.0); HEMOGLOBIN 12.5 g/dL (13.5-17.0); LYMPHOCYTES % (AUTO) 35.1 % (13-45); MEAN CORPUSCULAR HEMOGLOBIN 29.9 pg (27.0-33.4); MEAN CORPUSCULAR HGB CONC 33.1 g/dL (32.0-36.0); MEAN CORPUSCULAR VOLUME 90 fl (80-97); MONOCYTES % (AUTO) 8.4 % (3-13); PLATELET COUNT 359 10^3/uL (150-450); RED BLOOD COUNT 4.18 10^6/uL (4.35-5.55); RED CELL DISTRIBUTION WIDTH 14.3 % (11.5-14.0); SEGMENTED NEUTROPHILS % (AUTO) 49.9 % (42-78); TOTAL CELLS COUNTED % (AUTO) 100 %; WHITE BLOOD COUNT 7.2 10^3/uL (4.0-10.5)
[2017-12-11 23:33] LABS: INTERNATIONAL RATION (INR) 0.97; PARTIAL THROMBOPLASTIN TIME 29.9 SEC (23.5-35.8); PROTHROMBIN TIME 13.4 SEC (11.4-15.4)
[2017-12-11] MEDS ORDERED: MORPHINE SULFATE 10 MG/ML INJ IV ONE (23:36)
[2017-12-11 23:45] LABS: ANION GAP 13 (5-19); BLOOD UREA NITROGEN 16 mg/dL (7-20); CALCIUM 9.4 mg/dL (8.4-10.2); CARBON DIOXIDE 25 mmol/L (22-30); CHLORIDE 104 mmol/L (98-107); GLUCOSE 112 mg/dL (75-110); POTASSIUM 3.8 mmol/L (3.6-5.0); SODIUM 141.7 mmol/L (137-145)
[2017-12-12] MEDS ORDERED: RINGERS SOLUTION,LACTATED 1,000 ML IV PRN ×2 (00:57→08:54)
[2017-12-12] MEDS ORDERED: ONDANSETRON HCL INJ/PF 4 MG/2 ML SDV IV PRN (00:58)
[2017-12-12] MEDS: MORPHINE SULFATE 10 MG/ML INJ IV PRN ×3 (01:42→09:13)
[2017-12-12] MEDS ORDERED: MORPHINE SULFATE 10 MG/ML INJ ONE (04:48)
[2017-12-12] MEDS ORDERED: KETAMINE HCL INJ 500 MG/10 ML VIAL ONE (07:15)
[2017-12-12] MEDS ORDERED: PROPOFOL INJ 200 MG/20 ML VIAL IV ONE (07:15)
[2017-12-12] MEDS ORDERED: MIDAZOLAM 2 MG/2 ML INJ ONE (07:15)
[2017-12-12] MEDS ORDERED: HYDROMORPHONE HCL INJ/PF 2 MG/ML AMPULE ONE (07:15)
--- NOTE | 2017-12-12 07:19 | PDOC H&P ---
History of Present Illness Admission Date/PCP: 12/12/17 00:00 RICO IBANEZ NP History of Present Illness: GISSEL ALVA is a 56 year old male status post right shoulder arthroplasty in November 25, 2017. The patient was doing well until yesterday when he presented to the emergency room with a prosthetic right shoulder dislocation. Attempts at reduction were unsuccessful. Patient is admitted to orthopedic service on outpatient basis for management of the shoulder dislocation Past Medical History Cardiac Medical History: Reports: Hyperlipidema, Hypertension Denies: Atrial Fibrillation, Congestive Heart Failure, Coronary Artery Disease, Myocardial Infarction, Peripheral Vascular Disease, Pulmonary Embolism , Heart Murmur Pulmonary Medical History: Reports: Bronchitis - as a child, Pneumonia, Sleep Apnea - should use one but doesn't have one currently Denies: Asthma, Chronic Obstructive Pulmonary Disease (COPD), Respiratory Failure, Tuberculosis Neurological Medical History: Reports: Seizures - as a child Endocrine Medical History: Reports: Hypothyroidism Denies: Hyperthyroidism Renal/ Medical History: Denies: End Stage Renal Disease Malignancy Medical History: Denies: Lung Cancer GI Medical History: Denies: Gastroesophageal Reflux Disease Musculoskeltal Medical History: Reports: Arthritis Denies: Fibromyalgia Psychiatric Medical History: Denies: Dementia Hematology: Denies: Anemia Past Surgical History Past Surgical History: Reports: Appendectomy, Orthopedic Surgery - Herniated disc to the neck and lumbar area repaired. Right shoulder replac, Other - Cataracts Denies: Cholecystectomy, Coronary Artery Bypass Graft, Gastric Bypass Surgery , Herniorrhaphy, Pacemaker, Tonsillectomy Social History Smoking Status: Former Smoker Frequency of Alcohol Use: None Hx Recreational Drug Use: No Drugs: None Hx Prescription Drug Abuse: No - Advance Directive Resuscitation Status: Full Code Family History Family History: CAD, Hyperlipidemia, Hypertension, Malignancy. denies: Arthritis, COPD, CVA, Thyroid Disfunction Parental Family History Reviewed: No Children Family History Reviewed: No Sibling(s) Family History Reviewed.: No Medication/Allergy Home Medications: Acetaminophen [Mapap] 500 mg PO Q4HP PRN 11/21/17 Amlodipine Besylate 5 mg PO DAILY 11/21/17 Enalapril Maleate [Vasotec 10 mg Tablet] 10 mg PO DAILY 11/21/17 Fenofibrate Nanocrystallized [Fenofibrate] 48 mg PO DAILY 11/21/17 Guaifenesin/Dextromethorphan [Sm Tussin Dm Liquid] 10 ml PO Q6HP PRN 11/21/17 Levothyroxine Sodium 100 mcg PO DAILY 11/21/17 Loperamide HCl [Anti-Diarrheal] 2 mg PO ASDIR PRN 11/21/17 Mag Hydrox/Aluminum Hyd/Simeth [Mintox Plus Tablet Chewable] 30 ml PO ASDIR PRN 11/21/17 Magnesium Hydroxide [Milk of Magnesia] 30 ml PO HSP PRN 11/21/17 [place]-3 Fatty Acids/Fish Oil [Fish Oil 1,000 mg Capsule] 1,000 mg PO DAILY 11/21 Carbidopa/Levodopa [Sinemet 25-100 mg Tablet] 0.5 tab PO MEALS 11/25/17 Hydrochlorothiazide [Hydrodiuril 12.5 mg Capsule] 12.5 mg PO QAM 11/25/17 Aspirin [Ecotrin 81 mg EC Tablet] 81 mg PO DAILY tabec 11/28/17 Oxycodone HCl [Oxy-Ir 5 mg Tablet] 5 mg PO Q6HP PRN tablet 11/28/17 Allergies/Adverse Reactions: Penicillins Allergy (Unknown, Verified 11/19/17 09:31) Anaphylaxis Review of Systems All systems: as per H Physical Exam Vital Signs: Temp Pulse Resp BP Pulse Ox 36.7 C 88 20 118/78 93 12/12/17 03:13 12/12/17 03:13 12/12/17 01:24 12/12/17 03:13 12/12/17 03:13 General appearance: PRESENT: no acute distress Head exam: PRESENT: normocephalic Respiratory exam: PRESENT: unlabored Cardiovascular exam: PRESENT: RRR Pulses: PRESENT: normal radial pulses Vascular exam: PRESENT: normal capillary refill GI/Abdominal exam: PRESENT: soft Rectal exam: PRESENT: deferred Musculoskeletal exam: PRESENT: other - Upper extremity in abduction pillow. Prominence of the right shoulder anteriorly. Tenderness to palpation. Passive range of motion is not assessed. Distal neurovascular examination is intact. Neurological exam: PRESENT: alert, awake, oriented to person, oriented to place , oriented to time, oriented to situation. ABSENT: motor sensory deficit Psychiatric exam: PRESENT: appropriate affect, normal mood. ABSENT: homicidal ideation, suicidal ideation Skin exam: PRESENT: dry, intact, warm. ABSENT: cyanosis, rash Results Impressions: Shoulder X-Ray 12/11/17 21:47 IMPRESSION: Anteromedial displacement-impaction deformity of right total shoulder arthroplasty hardware. Axillary radiograph can improve sensitivity-specificity. Status: Imported from PACS Assessment & Plan - Diagnosis (1) Shoulder dislocation Qualifiers: Encounter type: initial encounter Laterality: right Qualified Code(s): S43.004A - Unspecified dislocation of right shoulder joint, initial encounter Is this a current diagnosis for this admission?: Yes Plan: 56-year-old male proximally 3 weeks status post right shoulder arthroplasty with prosthetic dislocation. Patient will be taken to the operating room for closed reduction under sedation - Time Time Spent: 50 to 70 Minutes Anticipated discharge: Home Within: within 24 hours
--- NOTE | 2017-12-12 07:47 | Operative Report ---
Operative Report DATE OF SURGERY: 12/12/17 PREOPERATIVE DIAGNOSIS: Right prosthetic shoulder dislocation OPERATION: Closed reduction right prosthetic shoulder SURGEON: NORTH ARRIAGA ANESTHESIA: Moderate Sedation PROCEDURE: The patient supine Afrin table under conscious sedation the right shoulder was manipulated. There is considerable difficulty encountered in removing the proximal humerus posteriorly. This makes me question how acute the dislocation is. After considerable amount of manipulation the shoulder appears to be reduced fluoroscopically. The shoulder abduction pillow is really applied. The patient was awoken from anesthesia and returned to the PACU.
[2017-12-12] MEDS ORDERED: FENTANYL CITRATE INJ/PF 100 MCG/2 ML AMPUL ONE (08:09)
[2017-12-12] MEDS ORDERED: FENTANYL CITRATE INJ/PF 100 MCG/2 ML AMPUL IV PRN ×3 (08:28)
[2017-12-12] MEDS ORDERED: MEPERIDINE HCL/PF INJ 25 MG/1 ML DISP.SYRIN IV PRN (08:28)
[2017-12-12] MEDS ORDERED: PROMETHAZINE HCL INJ 25 MG/1 ML VIAL IV PRN ×2 (08:28)
[2017-12-12] MEDS ORDERED: DIPHENHYDRAMINE HCL 50 MG/ML VIAL IV PRN (08:28)
[2017-12-12] MEDS ORDERED: OXYCODONE-ACETAMINOPHEN 5-325 MG TABLET PO PRN ×2 (08:28)
[2017-12-12] MEDS: TRAMADOL HCL 50 MG TABLET PO SCH ×2 (11:05→17:15)
--- NOTE | 2017-12-12 11:35 | RADIOLOGY REPORT (SQ) ---
EXAM DESCRIPTION: NO CHG FLUORO; SHOULDER RIGHT 1 VIEW COMPLETED DATE/TIME: 12/12/2017 8:15 am REASON FOR STUDY: CLOSED REDUCTION RT SHOULDER ASST WITH FLUORO IN OR; CLOSED REDUCTION RT SHOULDER ASST WITH FLUORO IN OR COMPARISON: None. FLUOROSCOPY TIME: 0.9 minutes 1 images saved to PACS. TECHNIQUE: Intra-operative images acquired during surgical procedure to evaluate progress. NUMBER OF IMAGES: 1 LIMITATIONS: None. FINDINGS: Single image centered over humeral head prosthesis. IMPRESSION: IMAGE(S) OBTAINED DURING PROCEDURE. COMMENT: Quality ID [id number]: Final reports for procedures using fluoroscopy that document radiation exp osure indices, or exposure time and number of fluorographic images (if radiation exposure indices are not available) Please consult full operative report of the attending physician for description of the procedure. TECHNICAL DOCUMENTATION: JOB ID: [id number] [employer]- All Rights Reserved Reading location - IP/workstation name: [email or web address]
--- NOTE | 2017-12-12 11:35 | RADIOLOGY REPORT (SQ) ---
EXAM DESCRIPTION: NO CHG FLUORO; SHOULDER RIGHT 1 VIEW COMPLETED DATE/TIME: 12/12/2017 8:15 am REASON FOR STUDY: CLOSED REDUCTION RT SHOULDER ASST WITH FLUORO IN OR; CLOSED REDUCTION RT SHOULDER ASST WITH FLUORO IN OR COMPARISON: None. FLUOROSCOPY TIME: 0.9 minutes 1 images saved to PACS. TECHNIQUE: Intra-operative images acquired during surgical procedure to evaluate progress. NUMBER OF IMAGES: 1 LIMITATIONS: None. FINDINGS: Single image centered over humeral head prosthesis. IMPRESSION: IMAGE(S) OBTAINED DURING PROCEDURE. COMMENT: Quality ID [id number]: Final reports for procedures using fluoroscopy that document radiation exp osure indices, or exposure time and number of fluorographic images (if radiation exposure indices are not available) Please consult full operative report of the attending physician for description of the procedure. TECHNICAL DOCUMENTATION: JOB ID: [id number] [employer]- All Rights Reserved Reading location - IP/workstation name: [email or web address]
--- NOTE | 2017-12-12 17:18 | PDOC TRANSFER SUMMARY ---
General - Admit/Disc Date/PCP Admission Date/Primary Care Provider: 12/12/17 00:00 RICO IBANEZ NP Discharge Date: 12/12/17 - Discharge Diagnosis (1) Shoulder dislocation Is this a current diagnosis for this admission?: Yes - Additional Information Resuscitation Status: Full Code Home Medications: Amlodipine Besylate 5 mg PO DAILY 11/21/17 Enalapril Maleate [Vasotec 10 mg Tablet] 10 mg PO DAILY 11/21/17 Fenofibrate Nanocrystallized [Fenofibrate] 48 mg PO DAILY 11/21/17 Levothyroxine Sodium 100 mcg PO Q6AM 11/21/17 [place]-3 Fatty Acids/Fish Oil [Fish Oil 1,000 mg Capsule] 1,000 mg PO DAILY 11/21 Carbidopa/Levodopa [Sinemet 25-100 mg Tablet] 0.5 tab PO MEALS 11/25/17 Hydrochlorothiazide [Hydrodiuril 12.5 mg Capsule] 12.5 mg PO QAM 11/25/17 Aspirin [Ecotrin 81 mg EC Tablet] 81 mg PO DAILY tabec 11/28/17 Oxycodone HCl [Oxy-Ir 5 mg Tablet] 5 mg PO Q6HP PRN 12/12/17 History of Present Illness Admission Date/PCP: 12/12/17 00:00 RICO IBANEZ NP History of Present Illness: The patient is a 56-year-old white male status post right shoulder arthroplasty on November 25, 2017 who presented to the emergency room on the night prior with a prosthetic dislocation. Attempts were made in the emergency room to a reduce the shoulder but were unsuccessful. Hospital Course Hospital Course: The patient was admitted on 23 hour outpatient observation basis and was taken to the operating room the this morning. He underwent a closed reduction shoulder and application of a shoulder abduction pillow. Physical Exam Vital Signs: Temp Pulse Resp BP Pulse Ox 36.8 C 83 16 120/78 93 12/12/17 15:00 12/12/17 15:00 12/12/17 15:00 12/12/17 15:00 12/12/17 15:00 Intake & Output 12/11/17 12/12/17 12/13/17 06:59 06:59 06:59 Intake Total 1030 Output Total 150 Balance 880 General appearance: PRESENT: no acute distress Head exam: PRESENT: normocephalic Respiratory exam: PRESENT: unlabored Cardiovascular exam: PRESENT: RRR Pulses: PRESENT: normal radial pulses Vascular exam: PRESENT: normal capillary refill GI/Abdominal exam: PRESENT: soft Rectal exam: PRESENT: deferred Musculoskeletal exam: PRESENT: other - Right shoulder wound is healing uneventfully. Neurological exam: PRESENT: alert, awake, oriented to person, oriented to place , oriented to time, oriented to situation. ABSENT: motor sensory deficit Psychiatric exam: PRESENT: appropriate affect, normal mood. ABSENT: homicidal ideation, suicidal ideation Skin exam: PRESENT: dry, intact, warm. ABSENT: cyanosis, rash Results Impressions: Fluoroscopy 12/12/17 00:00 IMPRESSION: IMAGE(S) OBTAINED DURING PROCEDURE. Shoulder X-Ray 12/12/17 00:00 IMPRESSION: IMAGE(S) OBTAINED DURING PROCEDURE. Transfer Plan - Time Spent with Patient Time spent with patient: Less than 30 Minutes Qualifiers - * PATIENT BEING DISCHARGED WITH ANY OF THE FOLLOWING DIAGNOSIS: No Plan Discharge Plan: Patient be discharged to a [facility] facility return to see Dr. Kandis Cartwright [place] for surgery in 2 weeks.
[2017-12-12 19:27] VITALS: BP 133/87
== END 2017-12-12 19:25 ==
LOC: ER 21:20 → EH 12-12 → UNDOADMOB 12-12 → EH 12-12 01:10 → 2N 12-12 01:10
PROVIDERS: ADMIT Orthopaedic Surgery; ATTEND Orthopaedic Surgery
PROC: 0RSJXZZ Reposition Right Shoulder Joint, External Approach (ICD-10-PCS; 2017-12-12)
PROC: 0RSJXZZ Reposition Right Shoulder Joint, External Approach (ICD-10-PCS; principal; 2017-12-12 07:30)
DX: T84.028A Dislocation of other internal joint prosthesis, initial encounter (principal); X58.XXXA Exposure to other specified factors, initial encounter; Z96.611 Presence of right artificial shoulder joint; I10 Essential (primary) hypertension; E03.9 Hypothyroidism, unspecified; Z88.0 Allergy status to penicillin; Z79.899 Other long term (current) drug therapy; Z79.82 Long term (current) use of aspirin; Z90.49 Acquired absence of other specified parts of digestive tract
CPT/HCPCS: 99284; 99152; 36415; 85025; 85610; 85730; 80048; 73020; 73030; 23650 ×2; J2250; J3010; J3490; J2270 ×2; J1170; J2405; J7040; J7120; J2704 ×2; A9270; 01620; G0378; L3650

== ENCOUNTER 2017-12-14 21:36 | Inpatient (IN) | payer MEDICARE, MEDICAID ==
[2017-12-14] MEDS ORDERED: FENTANYL CITRATE INJ/PF 100 MCG/2 ML AMPUL IV PRN (21:52)
[2017-12-14] MEDS ORDERED: KETOROLAC TROMETHAMINE INJ/PF 30 MG/1 ML SDV IV ONE (21:52)
[2017-12-14] MEDS ORDERED: PROPOFOL INJ 200 MG/20 ML VIAL IV ONE ×2 (22:34→23:51)
--- NOTE | 2017-12-14 22:37 | ER Document Report ---
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 The patient reports that since being discharged in the hospital he has had ongoing dull, constant, throbbing pain to his right shoulder. He states it is worsened by any movement of the shoulder. Nothing improves the pain. He states this feels exactly the same as when it was dislocated several days ago. He was referred by his nursing facility. He denies any additional complaints or concerns. TRAVEL OUTSIDE OF THE [place] IN LAST 30 DAYS: No - Related Data Allergies/Adverse Reactions: Penicillins Allergy (Unknown, Verified 11/19/17 09:31) Anaphylaxis Past Medical History - General Information source: Patient - Social History Smoking Status: Never Smoker Frequency of alcohol use: None Drug Abuse: None Lives with: Alf Family History: CAD, Hyperlipidemia, Hypertension, Malignancy. denies: Arthritis, COPD, CVA, Thyroid Disfunction - Past Medical History Cardiac Medical History: Reports: Hx Hypercholesterolemia, Hx Hypertension Denies: Hx Atrial Fibrillation, Hx Congestive Heart Failure, Hx Coronary Artery Disease, Hx Heart Attack, Hx Peripheral Vascular Disease, Hx Pulmonary Embolism, Hx Heart Murmur Pulmonary Medical History: Reports: Hx Bronchitis - as a child, Hx Pneumonia, Hx Sleep Apnea - should use one but doesn't have one currently Denies: Hx Asthma, Hx COPD, Hx Respiratory Failure, Hx Tuberculosis Neurological Medical History: Reports: Hx Seizures - as a child. Denies: Hx Cerebrovascular Accident Endocrine Medical History: Reports: Hx Hypothyroidism. Denies: Hx Graves' Disease, Hx Hyperthyroidism Renal/ Medical History: Denies: Hx Benign Prostatic Hyperplasia, Hx End Stage Renal Disease, Hx Kidney Stones, Hx Peritoneal Dialysis Malignancy Medical History: Denies Hx Lung Cancer GI Medical History: Denies: Hx Gastroesophageal Reflux Disease Musculoskeltal Medical History: Reports Hx Arthritis, Denies Hx Fibromyalgia, Denies Hx Multiple Sclerosis, Denies Hx Muscular Dystrophy, Reports Hx Musculoskeletal Deformity, Reports Hx Musculoskeletal Trauma Psychiatric Medical History: Denies: Hx Dementia Traumatic Medical History: Reports: Hx Fractures Past Surgical History: Reports: Hx Appendectomy, Hx Orthopedic Surgery - Herniated disc to the neck and lumbar area repaired. Right shoulder replac, Other - Cataracts. Denies: Hx Bowel Surgery, Hx Cholecystectomy, Hx Coronary Artery Bypass Graft, Hx Gastric Bypass Surgery, Hx Herniorrhaphy, Hx Pacemaker, Hx Tonsillectomy - Immunizations Immunizations up to date: Yes Hx Diphtheria, Pertussis, Tetanus Vaccination: Yes Review of Systems - Review of Systems Notes: Constitutional: Negative for fever. HENT: Negative for sore throat. Eyes: Negative for visual changes. Cardiovascular: Negative for chest pain. Respiratory: Negative for shortness of breath. Gastrointestinal: Negative for abdominal pain, vomiting or diarrhea. Genitourinary: Negative for dysuria. Musculoskeletal: Positive for right shoulder pain Skin: Negative for rash. Neurological: Negative for headaches, weakness or numbness. 10 point ROS negative except as marked above and in HPI. Physical Exam - Vital signs Vitals: Temp Pulse Resp BP Pulse Ox 98.5 F 92 20 137/95 H 97 12/14/17 21:52 12/14/17 21:52 12/14/17 21:52 12/14/17 21:52 12/14/17 21:52 Interpretation: Normal Notes: PHYSICAL EXAMINATION: GENERAL: Appears older than stated age, in no acute distress HEAD: Atraumatic, normocephalic. EYES: Pupils equal round and reactive to light, extraocular movements intact, sclera anicteric, conjunctiva are normal. ENT: nares patent, oropharynx clear without exudates. Moist mucous membranes. NECK: Normal range of motion, supple without lymphadenopathy LUNGS: Breath sounds clear to auscultation bilaterally and equal. No wheezes rales or rhonchi. HEART: Regular rate and rhythm without murmurs ABDOMEN: Soft, nontender, normoactive bowel sounds. No guarding, no rebound. No masses appreciated. EXTREMITIES: Apparent anterior dislocation of the right shoulder. Extremity examination otherwise unremarkable NEUROLOGICAL: No focal neurological deficits. Moves all extremities spontaneously and on command. PSYCH: Normal mood, normal affect. SKIN: Warm, Dry, normal turgor, no rashes or lesions noted. Course - Re-evaluation Re-evalutation: 12/14/17 22:36 Patient presents with a recurrent right arthroplastic shoulder dislocation. Neurovascular intact. I discussed with Dr. Marquis as this patient apparently was extremely difficult to relocate on the prior occasion and was unable to be successfully reduced in the emergency department. He has asked that I attempt to reduce the shoulder and if I am unable to get back in that he will admit the patient. We will use propofol for procedural sedation and attempt to relocate the shoulder. 12/14/17 23:35 Patient was sedated using propofol. Despite multiple technique attempts with two providers, unable to relocate the shoulder. I will admit to . - Vital Signs Vital signs: Temp Pulse Resp BP Pulse Ox 98.5 F 95 18 136/83 H 100 12/14/17 21:52 12/14/17 23:30 12/15/17 00:01 12/15/17 00:01 12/15/17 00:01 - Diagnostic Test Radiology reviewed: Image reviewed, Reports reviewed Radiology results interpreted by me: 12/14/17 22:37 Right shoulder x-ray: Recurrent anterior dislocation of the right arthroplastic shoulder Discharge - Discharge Clinical Impression: Shoulder dislocation Qualifiers: Encounter type: initial encounter Laterality: right Qualified Code(s): S43.004A - Unspecified dislocation of right shoulder joint, initial encounter Condition: Fair Disposition: ADMITTED OBSERVATION Admitting Provider: Kandis Unit Admitted: Surgical Floor
--- NOTE | 2017-12-14 23:01 | RADIOLOGY REPORT (SQ) ---
EXAM DESCRIPTION: SHOULDER RIGHT 2 OR MORE VIEWS COMPLETED DATE/TIME: 12/14/2017 10:21 pm REASON FOR STUDY: possible dislocation COMPARISON: Right shoulder x-ray 12/11/2017. NUMBER OF VIEWS: Two views. TECHNIQUE: Frontal and Y view images acquired of the right shoulder. LIMITATIONS: None. FINDINGS: MINERALIZATION: Normal. BONES: The patient is status post total right shoulder arthroplasty with anteromedial dislocation at the glenohumeral joint. No displaced fracture is identified. VISUALIZED LUNGS AND RIBS: No pneumothorax. No displaced rib fracture. SOFT TISSUES: No radiopaque foreign body. IMPRESSION: Status post total right shoulder arthroplasty with anterior glenohumeral dislocation. TECHNICAL DOCUMENTATION: JOB ID: [id number] 2010 [employer]- All Rights Reserved Reading location - IP/workstation name: [email or web address]
[2017-12-15] MEDS ORDERED: ONDANSETRON 4 MG TAB.RAPDIS PO PRN (02:01)
[2017-12-15] MEDS: OXYCODONE-ACETAMINOPHEN 5-325 MG TABLET PO PRN ×4 (02:59→20:16)
--- NOTE | 2017-12-15 06:36 | PDOC H&P ---
History of Present Illness Admission Date/PCP: 12/14/17 23:56 History of Present Illness: GISSEL ALVA is a 56 year old male with recurrent instability status post right total shoulder arthroplasty Past Medical History Cardiac Medical History: Reports: Hyperlipidema, Hypertension Denies: Atrial Fibrillation, Congestive Heart Failure, Coronary Artery Disease, Myocardial Infarction, Peripheral Vascular Disease, Pulmonary Embolism , Heart Murmur Pulmonary Medical History: Reports: Pneumonia, Sleep Apnea - should use one but doesn't have one currently Denies: Asthma, Bronchitis, Chronic Obstructive Pulmonary Disease (COPD), Respiratory Failure, Tuberculosis Neurological Medical History: Denies: Seizures Endocrine Medical History: Reports: Hypothyroidism Denies: Hyperthyroidism Renal/ Medical History: Denies: End Stage Renal Disease Malignancy Medical History: Denies: Lung Cancer GI Medical History: Denies: Cirrhosis, Gastroesophageal Reflux Disease Musculoskeltal Medical History: Denies: Arthritis, Fibromyalgia Psychiatric Medical History: Reports: Depression Denies: Bipolar Disorder, Dementia Hematology: Denies: Anemia, Bleeding Tendencies Past Surgical History Past Surgical History: Reports: Appendectomy, Orthopedic Surgery - Herniated disc to the neck and lumbar area repaired. Right shoulder replac, Other - Cataracts Denies: Cholecystectomy, Coronary Artery Bypass Graft, Gastric Bypass Surgery , Herniorrhaphy, Pacemaker, Tonsillectomy Social History Lives with: [facility] Smoking Status: Never Smoker Frequency of Alcohol Use: None Hx Recreational Drug Use: No Drugs: None Hx Prescription Drug Abuse: No - Advance Directive Resuscitation Status: Full Code Family History Family History: CAD, Hyperlipidemia, Hypertension, Malignancy. denies: Arthritis, COPD, CVA, Thyroid Disfunction Parental Family History Reviewed: No Children Family History Reviewed: No Sibling(s) Family History Reviewed.: No Medication/Allergy Home Medications: Amlodipine Besylate 5 mg PO DAILY 11/21/17 Enalapril Maleate [Vasotec 10 mg Tablet] 10 mg PO DAILY 11/21/17 Fenofibrate Nanocrystallized [Fenofibrate] 48 mg PO DAILY 11/21/17 Levothyroxine Sodium 100 mcg PO Q6AM 11/21/17 [place]-3 Fatty Acids/Fish Oil [Fish Oil 1,000 mg Capsule] 1,000 mg PO DAILY 11/21 Carbidopa/Levodopa [Sinemet 25-100 mg Tablet] 0.5 tab PO MEALS 11/25/17 Hydrochlorothiazide [Hydrodiuril 12.5 mg Capsule] 12.5 mg PO QAM 11/25/17 Aspirin [Ecotrin 81 mg EC Tablet] 81 mg PO DAILY tabec 11/28/17 Oxycodone HCl [Oxy-Ir 5 mg Tablet] 5 mg PO Q6HP PRN 12/12/17 Allergies/Adverse Reactions: Penicillins Allergy (Unknown, Verified 12/15/17 02:32) Anaphylaxis Review of Systems All systems: as per PMH Physical Exam Vital Signs: Temp Pulse Resp BP Pulse Ox 36.7 C 79 16 134/91 H 95 12/15/17 05:09 12/15/17 05:09 12/15/17 05:09 12/15/17 05:09 12/15/17 05:09 General appearance: PRESENT: no acute distress Head exam: PRESENT: normocephalic Respiratory exam: PRESENT: unlabored Cardiovascular exam: PRESENT: RRR Pulses: PRESENT: normal radial pulses GI/Abdominal exam: PRESENT: soft Rectal exam: PRESENT: deferred Extremities exam: PRESENT: other - Right upper extremity is well healed deltopectoral incision. There is a prominence of the humeral head and reduced active range of motion. Distal neurovascular examination of the hand is intact. Skin exam: PRESENT: dry, intact, warm. ABSENT: cyanosis, rash Results Impressions: Shoulder X-Ray 12/14/17 21:52 IMPRESSION: Status post total right shoulder arthroplasty with anterior glenohumeral dislocation. Status: Imported from PACS Assessment & Plan - Diagnosis (1) Shoulder dislocation Qualifiers: Encounter type: initial encounter Laterality: right Qualified Code(s): S43.004A - Unspecified dislocation of right shoulder joint, initial encounter Is this a current diagnosis for this admission?: Yes Plan: 56-year-old white male status post right shoulder arthroplasty in November now with recurrent instability that is not amenable to reduction in the emergency room. Tentative plan will be for revision arthroplasty on Saturday. - Time Critical Time spent with patient: 15-24 minutes Anticipated discharge: Other Within: Other
[2017-12-15] MEDS ORDERED: GLUCAGON,HUMAN RECOMB 1 MG INJ SUBCUT PRN (08:14)
[2017-12-15] MEDS ORDERED: DEXTROSE 40% GEL 15 GM TUBE PO PRN ×2 (08:14)
[2017-12-15] MEDS ORDERED: DEXTROSE 50%-WATER 25 GM/50 ML DISP.SYRIN IV PRN ×2 (08:14)
[2017-12-15 09:29] LABS: INTERNATIONAL RATION (INR) 0.99; PROTHROMBIN TIME 13.6 SEC (11.4-15.4)
[2017-12-15 09:30] LABS: PARTIAL THROMBOPLASTIN TIME 31.5 SEC (23.5-35.8)
[2017-12-15 09:33] LABS: HEMATOCRIT 34.6 % (37.9-51.0); HEMOGLOBIN 11.6 g/dL (13.5-17.0); MEAN CORPUSCULAR HEMOGLOBIN 30.4 pg (27.0-33.4); MEAN CORPUSCULAR HGB CONC 33.5 g/dL (32.0-36.0); MEAN CORPUSCULAR VOLUME 91 fl (80-97); PLATELET COUNT 281 10^3/uL (150-450); RED BLOOD COUNT 3.82 10^6/uL (4.35-5.55); RED CELL DISTRIBUTION WIDTH 14.1 % (11.5-14.0); WHITE BLOOD COUNT 6.5 10^3/uL (4.0-10.5)
[2017-12-15 09:48] LABS: ANION GAP 9 (5-19); BLOOD UREA NITROGEN 11 mg/dL (7-20); CALCIUM 8.9 mg/dL (8.4-10.2); CARBON DIOXIDE 30 mmol/L (22-30); CHLORIDE 104 mmol/L (98-107); GLUCOSE 81 mg/dL (75-110); POTASSIUM 3.7 mmol/L (3.6-5.0); SODIUM 142.7 mmol/L (137-145)
[2017-12-16] MEDS: OXYCODONE-ACETAMINOPHEN 5-325 MG TABLET PO PRN (02:50)
[2017-12-16] MEDS: RINGERS SOLUTION,LACTATED 1,000 ML IV PRN (02:52)
[2017-12-16] MEDS ORDERED: VANCOMYCIN HCL 1,000 MG in DEXTROSE 5%-WATER 250 ML IV PRN (05:00)
[2017-12-16] MEDS ORDERED: KETOROLAC TROMETHAMINE INJ/PF 30 MG/1 ML SDV ONE (08:07)
[2017-12-16] MEDS ORDERED: MAGNESIUM HYDROXIDE SUSP 30 ML UDCUP PO PRN (09:53)
[2017-12-16] MEDS ORDERED: MAG HYDROX/AL HYDROX/SIMETH SUSP 30 ML UDCUP PO PRN (09:53)
[2017-12-16] MEDS ORDERED: LOPERAMIDE HCL 2 MG CAPSULE PO PRN (09:53)
[2017-12-16] MEDS ORDERED: (PENDING PHARMACY ID) (Acetaminophen [Tylenol Extra Strength 500 Mg Tablet] 500 MG) PO PRN (09:53)
[2017-12-16] MEDS ORDERED: GUAIFENESIN/D-METHORPHAN (200-20 MG) SYRUP 10 ML PO PRN (09:53)
[2017-12-16] MEDS ORDERED: SUCCINYLCHOLINE CHLORIDE INJ 200 MG/10 ML VIAL ONE (09:54)
[2017-12-16] MEDS ORDERED: BUPIVACAINE INJ/PF LIPOSOME/PF 266 MG/20 ML SDV ONE (10:20)
[2017-12-16] MEDS ORDERED: FENTANYL CITRATE INJ/PF 100 MCG/2 ML AMPUL ONE ×2 (11:35)
[2017-12-16] MEDS ORDERED: MIDAZOLAM 2 MG/2 ML INJ ONE (11:35)
[2017-12-16] MEDS ORDERED: LIDOCAINE 2% INJ-PF (20 MG/ML) 10 ML AMPUL ONE (11:35)
[2017-12-16] MEDS ORDERED: ONDANSETRON HCL INJ/PF 4 MG/2 ML SDV ONE (11:36)
[2017-12-16] MEDS ORDERED: DEXAMETHASONE SOD PHOSPHATE INJ 4 MG/1 ML VIAL ONE (11:36)
[2017-12-16] MEDS ORDERED: ACETAMINOPHEN 100 ML IV ONE (11:36)
[2017-12-16] MEDS ORDERED: PROPOFOL INJ 200 MG/20 ML VIAL IV ONE (11:36)
[2017-12-16] MEDS ORDERED: DIPHENHYDRAMINE HCL 50 MG/ML VIAL IV PRN (13:44)
[2017-12-16] MEDS ORDERED: MORPHINE SULFATE 10 MG/ML INJ IV PRN (13:44)
[2017-12-16] MEDS ORDERED: PROMETHAZINE HCL INJ 25 MG/1 ML VIAL IV PRN ×2 (13:44)
[2017-12-16] MEDS ORDERED: MEPERIDINE HCL/PF INJ 25 MG/1 ML DISP.SYRIN IV PRN (13:44)
[2017-12-16] MEDS ORDERED: ONDANSETRON HCL INJ/PF 4 MG/2 ML SDV IV PRN (13:44)
[2017-12-16] MEDS ORDERED: FENTANYL CITRATE INJ/PF 100 MCG/2 ML AMPUL IV PRN ×3 (13:44)
--- NOTE | 2017-12-16 14:17 | Operative Report ---
Operative Report DATE OF SURGERY: 12/16/17 PREOPERATIVE DIAGNOSIS: Right shoulder prosthetic instability OPERATION: Revision right shoulder arthroplasty SURGEON: [place] ANESTHESIA: GA TISSUE REMOVED OR ALTERED: Cultures 2 to microbiology. Implant to CSS PROCEDURE: With the patient in a beachchair position on the operating table the right forequarter was prepped and draped in a sterile fashion. The previous deltopectoral approach is opened. The underlying humeral head disimpacted from the stem. Soft tissues cleared off the posterior aspect of the capsule and the humerus. A trial reduction was performed by increasing the height of the head, using an offset posteriorly and decrease in the diameter of the stem. This seems to improve the stability. The final implant is impacted onto the stem. The wound is merrill irrigated with pulse lavage. In attempting to close the rotator cuff interval the #2 FiberWire sutures passed through bone but the quality of the bone was such that the FiberWire would pull through the bone when the knot was tightened. Closure was then changed for #5 FiberWire suture not necessary because of the strength of the suture but because the needle was larger and allow me get a greater bite of bone. The rotator interval was closed comprehensively with interrupted 5 FiberWire suture. The wound is irrigated. The remainder the wound is closed using interrupted Vicryl followed by unique. A new abduction pillow was applied and the patient's return to the PACU in satisfactory condition.
[2017-12-16] MEDS: FENTANYL CITRATE INJ/PF 100 MCG/2 ML AMPUL ONE ×2 (14:44→14:50)
[2017-12-16] MEDS: MORPHINE SULFATE 10 MG/ML INJ ONE ×2 (15:05→15:10)
[2017-12-16] MEDS ORDERED: RINGERS SOLUTION,LACTATED 1,000 ML IV PRN (15:13)
[2017-12-16] MEDS ORDERED: OXYCODONE HCL IR 5 MG TABLET PO PRN (15:14)
[2017-12-16] MEDS: CARBIDOPA/LEVODOPA 25-100 MG TABLET PO SCH ×2 (16:01→17:44)
[2017-12-16] MEDS: OXYCODONE HCL IR 5 MG TABLET PO PRN ×2 (16:02→21:52)
[2017-12-16] MEDS ORDERED: TRANEXAMIC ACID INJ/PF 1,000 MG/10 ML SDV IV ONE (17:00)
[2017-12-16] MEDS: HYDROMORPHONE HCL INJ/PF 2 MG/ML AMPULE IV PRN (17:54)
[2017-12-16] MEDS: FENOFIBRATE NANOCRYSTALLIZED 48 MG TABLET PO SCH (21:51)
[2017-12-17] MEDS ORDERED: VANCOMYCIN HCL 1,000 MG in DEXTROSE 5%-WATER 250 ML IV ONE (02:00)
[2017-12-17] MEDS: LEVOTHYROXINE SODIUM 0.1 MG TABLET PO SCH (06:00)
[2017-12-17] MEDS: OXYCODONE HCL IR 5 MG TABLET PO PRN ×4 (06:00→23:44)
--- NOTE | 2017-12-17 07:38 | PDOC PROGRESS REPORT ---
Subjective Progress Note for:: 12/17/17 Reason For Visit: SHOULDER DISLOCATION 57-year-old white male status post right total shoulder revision arthroplasty yesterday for instability. Patient complaining of discomfort this morning. Physical Exam Vital Signs: Temp Pulse Resp BP Pulse Ox 36.8 C 98 20 131/79 H 96 12/16/17 23:48 12/16/17 23:48 12/16/17 23:48 12/16/17 23:48 12/16/17 23:48 Intake & Output 12/16/17 12/17/17 12/18/17 06:59 06:59 06:59 Intake Total 240 Balance 240 General appearance: PRESENT: mild distress Head exam: PRESENT: normocephalic Respiratory exam: PRESENT: unlabored Cardiovascular exam: PRESENT: RRR Pulses: PRESENT: normal radial pulses Vascular exam: PRESENT: normal capillary refill GI/Abdominal exam: PRESENT: soft Rectal exam: PRESENT: deferred Extremities exam: PRESENT: other - Right shoulder dressing clean dry and intact. Neurovascular examination to the right hand is intact. Shoulder abduction pillow in place. Neurological exam: PRESENT: alert Skin exam: PRESENT: dry, intact, warm. ABSENT: cyanosis, rash Results Impressions: Shoulder X-Ray 12/14/17 21:52 IMPRESSION: Status post total right shoulder arthroplasty with anterior glenohumeral dislocation. Status: Imported from PACS Assessment & Plan - Diagnosis (1) Shoulder dislocation Qualifiers: Encounter type: initial encounter Laterality: right Qualified Code(s): S43.004A - Unspecified dislocation of right shoulder joint, initial encounter Is this a current diagnosis for this admission?: Yes Plan: Patient complaining of increased pain this morning. Narcotic medication is adjusted. Patient to be mobilized and weightbearing as tolerated basis with strict use of the abduction pillow. - Time Time Spent with patient: 15-24 minutes Anticipated discharge: SNF Within: Other
[2017-12-17] MEDS ORDERED: (PENDING PHARMACY ID) (Omega-3 Fatty Acids/Fish Oil [Fish Oil 1,000 Mg Capsule] 1,000 MG) PO SCH (08:00)
[2017-12-17] MEDS: ENALAPRIL MALEATE 10 MG TABLET PO SCH (08:07)
[2017-12-17] MEDS: OMEGA-3 ACID ETHYL ESTERS 1 GM CAPSULE PO SCH (08:08)
[2017-12-17] MEDS: AMLODIPINE BESYLATE 5 MG TABLET PO SCH (08:08)
[2017-12-17] MEDS: HYDROCHLOROTHIAZIDE 12.5 MG CAPSULE PO SCH (08:08)
[2017-12-17] MEDS: ASPIRIN 81 MG TABLET, ENT COATED PO SCH (08:09)
[2017-12-17] MEDS: CARBIDOPA/LEVODOPA 25-100 MG TABLET PO SCH ×3 (08:18→16:17)
[2017-12-17] MEDS: HYDROMORPHONE HCL INJ/PF 2 MG/ML AMPULE IV PRN ×3 (09:47→20:50)
[2017-12-17] MEDS: RINGERS SOLUTION,LACTATED 1,000 ML IV PRN ×2 (11:19→18:18)
[2017-12-17] MEDS: FENOFIBRATE NANOCRYSTALLIZED 48 MG TABLET PO SCH (20:50)
[2017-12-18] MEDS: RINGERS SOLUTION,LACTATED 1,000 ML IV PRN (01:18)
[2017-12-18] MEDS: HYDROMORPHONE HCL INJ/PF 2 MG/ML AMPULE IV PRN ×3 (01:38→11:38)
[2017-12-18] MEDS: LEVOTHYROXINE SODIUM 0.1 MG TABLET PO SCH (06:33)
--- NOTE | 2017-12-18 08:12 | PDOC PROGRESS REPORT ---
Subjective Progress Note for:: 12/18/17 Reason For Visit: SHOULDER DISLOCATION 57-year-old white male status post revision right shoulder arthroplasty postop day 2 Physical Exam Vital Signs: Temp Pulse Resp BP Pulse Ox 36.3 C 87 18 124/67 94 12/18/17 04:48 12/18/17 04:48 12/18/17 04:48 12/18/17 04:48 12/18/17 04:48 Intake & Output 12/17/17 12/18/17 12/19/17 06:59 06:59 06:59 Intake Total 720 3090 Output Total 1121 Balance 720 1969 General appearance: PRESENT: mild distress, obese Head exam: PRESENT: normocephalic Respiratory exam: PRESENT: unlabored Cardiovascular exam: PRESENT: RRR Pulses: PRESENT: normal radial pulses Vascular exam: PRESENT: normal capillary refill GI/Abdominal exam: PRESENT: soft Rectal exam: PRESENT: deferred Extremities exam: PRESENT: other - Patient's right shoulder dressing is clean dry and intact. There is an impressive amount of swelling primarily in the upper arm. The wrist and hand are without significant swelling and is brisk capillary refill. Sensory examination is intact in the papers patient is able to grasp. Neurological exam: PRESENT: alert, awake, oriented to person, oriented to place , oriented to time, oriented to situation. ABSENT: motor sensory deficit Psychiatric exam: PRESENT: appropriate affect, normal mood. ABSENT: homicidal ideation, suicidal ideation Skin exam: PRESENT: dry, intact, warm. ABSENT: cyanosis, rash Results Impressions: Shoulder X-Ray 12/14/17 21:52 IMPRESSION: Status post total right shoulder arthroplasty with anterior glenohumeral dislocation. Status: Imported from PACS Assessment & Plan - Diagnosis (1) Shoulder dislocation Qualifiers: Encounter type: initial encounter Laterality: right Qualified Code(s): S43.004A - Unspecified dislocation of right shoulder joint, initial encounter Is this a current diagnosis for this admission?: Yes Plan: 57-year-old white male postop day 2 right shoulder revision arthroplasty. Just yesterday the patient had considerable discomfort and pain medication was increased. Patient now has considerable swelling in the upper extremity today and makes me concerned for potential outflow obstruction. There does not appear to be any restriction of vascular inflow. A Doppler DVT screen is requested. - Time Time Spent with patient: 15-24 minutes Anticipated discharge: Other Within: Other
[2017-12-18] MEDS: ASPIRIN 81 MG TABLET, ENT COATED PO SCH (08:30)
[2017-12-18] MEDS: CARBIDOPA/LEVODOPA 25-100 MG TABLET PO SCH ×3 (08:30→16:49)
[2017-12-18] MEDS: AMLODIPINE BESYLATE 5 MG TABLET PO SCH (08:30)
[2017-12-18] MEDS: HYDROCHLOROTHIAZIDE 12.5 MG CAPSULE PO SCH (08:30)
[2017-12-18] MEDS: OMEGA-3 ACID ETHYL ESTERS 1 GM CAPSULE PO SCH (08:30)
[2017-12-18] MEDS: ENALAPRIL MALEATE 10 MG TABLET PO SCH (08:30)
[2017-12-18] MEDS: OXYCODONE HCL IR 5 MG TABLET PO PRN ×3 (08:58→22:34)
[2017-12-18] MEDS: ACETAMINOPHEN 325 MG TABLET PO PRN (20:09)
[2017-12-18] MEDS: FENOFIBRATE NANOCRYSTALLIZED 48 MG TABLET PO SCH (20:09)
[2017-12-19] MEDS: LEVOTHYROXINE SODIUM 0.1 MG TABLET PO SCH (05:06)
[2017-12-19] MEDS: OXYCODONE HCL IR 5 MG TABLET PO PRN ×5 (05:06→21:19)
--- NOTE | 2017-12-19 07:16 | PDOC PROGRESS REPORT ---
Subjective Progress Note for:: 12/19/17 Reason For Visit: SHOULDER DISLOCATION 57-year-old white female status post right revision shoulder arthroplasty for instability now with right upper extremity swelling and complaints of pain. Physical Exam Vital Signs: Temp Pulse Resp BP Pulse Ox 37.4 C 96 16 128/77 H 94 12/19/17 05:07 12/19/17 05:07 12/19/17 05:07 12/19/17 05:07 12/19/17 05:07 Intake & Output 12/18/17 12/19/17 12/20/17 06:59 06:59 06:59 Intake Total 3090 Output Total 1121 750 Balance 1969 -750 General appearance: PRESENT: mild distress Respiratory exam: PRESENT: unlabored Cardiovascular exam: PRESENT: RRR Pulses: PRESENT: normal radial pulses Vascular exam: PRESENT: normal capillary refill Extremities exam: PRESENT: other - Right upper extremity swelling continues but it may be slightly less than yesterday. Dorsal hand swelling is increased from yesterday. Clearly distal neurovascular examination is without compromise. Neurological exam: PRESENT: alert, awake, oriented to person, oriented to place , oriented to time, oriented to situation. ABSENT: motor sensory deficit Psychiatric exam: PRESENT: appropriate affect, normal mood. ABSENT: homicidal ideation, suicidal ideation Skin exam: PRESENT: dry, intact, warm. ABSENT: cyanosis, rash Results Impressions: Shoulder X-Ray 12/14/17 21:52 IMPRESSION: Status post total right shoulder arthroplasty with anterior glenohumeral dislocation. Status: Imported from PACS Assessment & Plan - Diagnosis (1) Shoulder dislocation Qualifiers: Encounter type: initial encounter Laterality: right Qualified Code(s): S43.004A - Unspecified dislocation of right shoulder joint, initial encounter Is this a current diagnosis for this admission?: Yes Plan: 57-year-old status post revision shoulder arthroplasty with right upper extremity swelling. Swelling somewhat concerning. I had requested Doppler ultrasound but this was not possible because of position of the patient's right upper extremity. At this point it seems to be decreasing all bites slowly. Tentative plan will be for continued observation for an additional day and potential transfer back to the assisted living facility tomorrow. - Time Time Spent with patient: 15-24 minutes Anticipated discharge: Other Within: within 24 hours
[2017-12-19] MEDS: ENALAPRIL MALEATE 10 MG TABLET PO SCH (08:54)
[2017-12-19] MEDS: ASPIRIN 81 MG TABLET, ENT COATED PO SCH (08:55)
[2017-12-19] MEDS: OMEGA-3 ACID ETHYL ESTERS 1 GM CAPSULE PO SCH (08:55)
[2017-12-19] MEDS: HYDROCHLOROTHIAZIDE 12.5 MG CAPSULE PO SCH (08:56)
[2017-12-19] MEDS: CARBIDOPA/LEVODOPA 25-100 MG TABLET PO SCH ×3 (08:56→17:24)
[2017-12-19] MEDS: AMLODIPINE BESYLATE 5 MG TABLET PO SCH (08:56)
[2017-12-19] MEDS: FENOFIBRATE NANOCRYSTALLIZED 48 MG TABLET PO SCH (20:16)
[2017-12-20] MEDS: OXYCODONE HCL IR 5 MG TABLET PO PRN ×5 (01:13→19:51)
[2017-12-20] MEDS: LEVOTHYROXINE SODIUM 0.1 MG TABLET PO SCH (05:42)
--- NOTE | 2017-12-20 06:10 | PDOC PROGRESS REPORT ---
Subjective Progress Note for:: 12/20/17 Reason For Visit: SHOULDER DISLOCATION 57-year-old white male status post revision right shoulder arthroplasty with continued complaints of pain and making little effort to get out of bed. Physical Exam Vital Signs: Temp Pulse Resp BP Pulse Ox 37.1 C 97 18 134/74 H 100 12/19/17 15:17 12/19/17 15:17 12/19/17 15:17 12/19/17 15:17 12/19/17 15:17 Intake & Output 12/18/17 12/19/17 12/20/17 06:59 06:59 06:59 Intake Total 3090 1310 Output Total 7246 946 3048 Balance 1969 -750 -190 General appearance: PRESENT: no acute distress, mild distress Head exam: PRESENT: normocephalic Respiratory exam: PRESENT: unlabored Cardiovascular exam: PRESENT: RRR Pulses: PRESENT: normal radial pulses Vascular exam: PRESENT: normal capillary refill GI/Abdominal exam: PRESENT: soft Rectal exam: PRESENT: deferred Extremities exam: PRESENT: other - Right upper extremity swelling seems to be decreasing. There is minimal tenderness to palpation. Distal neurovascular examination of the hand is intact. Neurological exam: PRESENT: alert, awake, oriented to person, oriented to place , oriented to time, oriented to situation. ABSENT: motor sensory deficit Psychiatric exam: PRESENT: appropriate affect, normal mood. ABSENT: homicidal ideation, suicidal ideation Skin exam: PRESENT: dry, intact, warm. ABSENT: cyanosis, rash Results Impressions: Shoulder X-Ray 12/14/17 21:52 IMPRESSION: Status post total right shoulder arthroplasty with anterior glenohumeral dislocation. Status: Imported from PACS Assessment & Plan - Diagnosis (1) Shoulder dislocation Qualifiers: Encounter type: initial encounter Laterality: right Qualified Code(s): S43.004A - Unspecified dislocation of right shoulder joint, initial encounter Is this a current diagnosis for this admission?: Yes Plan: Uneventful postoperative course except for unrelenting complaints of pain. Patient seems to doing well otherwise. Plan for discharge to the assisted living facility on Saturday. - Time Time Spent with patient: 15-24 minutes Anticipated discharge: Other Within: Other
[2017-12-20] MEDS: ENALAPRIL MALEATE 10 MG TABLET PO SCH (08:47)
[2017-12-20] MEDS: HYDROCHLOROTHIAZIDE 12.5 MG CAPSULE PO SCH (08:48)
[2017-12-20] MEDS: OMEGA-3 ACID ETHYL ESTERS 1 GM CAPSULE PO SCH (08:48)
[2017-12-20] MEDS: CARBIDOPA/LEVODOPA 25-100 MG TABLET PO SCH ×3 (08:49→18:21)
[2017-12-20] MEDS: ASPIRIN 81 MG TABLET, ENT COATED PO SCH (08:49)
[2017-12-20] MEDS: AMLODIPINE BESYLATE 5 MG TABLET PO SCH (08:49)
[2017-12-20] MEDS: FENOFIBRATE NANOCRYSTALLIZED 48 MG TABLET PO SCH (20:57)
[2017-12-20] MEDS: DIPHENHYDRAMINE HCL 25 MG CAPSULE PO SCH (21:29)
[2017-12-21] MEDS: OXYCODONE HCL IR 5 MG TABLET PO PRN ×5 (04:03→20:49)
[2017-12-21] MEDS: LEVOTHYROXINE SODIUM 0.1 MG TABLET PO SCH (06:04)
[2017-12-21] MEDS: HYDROCHLOROTHIAZIDE 12.5 MG CAPSULE PO SCH (07:53)
[2017-12-21] MEDS: ENALAPRIL MALEATE 10 MG TABLET PO SCH (07:53)
[2017-12-21] MEDS: CARBIDOPA/LEVODOPA 25-100 MG TABLET PO SCH ×3 (07:53→17:13)
[2017-12-21] MEDS: ASPIRIN 81 MG TABLET, ENT COATED PO SCH (07:53)
[2017-12-21] MEDS: AMLODIPINE BESYLATE 5 MG TABLET PO SCH (07:53)
[2017-12-21] MEDS: OMEGA-3 ACID ETHYL ESTERS 1 GM CAPSULE PO SCH (08:02)
--- NOTE | 2017-12-21 16:05 | PDOC PROGRESS REPORT ---
Subjective Progress Note for:: 12/21/17 Subjective:: Patient lying in bed comfortably. Continues to complain of pain but notes it has been improving. Pain is worse with motion. Denies fever chills or sweats. Denies chest pain shortness of breath. Reason For Visit: SHOULDER DISLOCATION Physical Exam Vital Signs: Temp Pulse Resp BP Pulse Ox 98.0 F 86 20 131/90 H 95 12/21/17 07:42 12/21/17 07:42 12/21/17 07:42 12/21/17 07:42 12/21/17 07:42 Intake & Output 12/20/17 12/21/17 12/22/17 06:59 06:59 06:59 Intake Total 2150 500 Output Total 2300 600 Balance -150 -100 General appearance: PRESENT: no acute distress Musculoskeletal exam: PRESENT: other - Right shoulder: Mild swelling and ecchymosis proximally. Surgical dressing clean/dry/intact no erythema or drainage. Patient is limited hand range of motion secondary to Parkinson's contractures. Has notable tremor which is unchanged. Results Impressions: Shoulder X-Ray 12/14/17 21:52 IMPRESSION: Status post total right shoulder arthroplasty with anterior glenohumeral dislocation. Assessment & Plan - Diagnosis (1) Shoulder dislocation Qualifiers: Encounter type: initial encounter Laterality: right Qualified Code(s): S43.004A - Unspecified dislocation of right shoulder joint, initial encounter Is this a current diagnosis for this admission?: Yes Plan: Status post revision right total shoulder arthroplasty #1 pain control #2 aspirin for DVT prophylaxis #3 history of Parkinson's which complicates patient's total shoulder makes him high risk for instability. Patient will maintain current posture to avoid recurrent dislocation #4 discharge planning patient will require half-way facility anticipate discharge Saturday
[2017-12-21] MEDS: FENOFIBRATE NANOCRYSTALLIZED 48 MG TABLET PO SCH (19:52)
[2017-12-21] MEDS: ACETAMINOPHEN 325 MG TABLET PO PRN (19:52)
[2017-12-21] MEDS: DIPHENHYDRAMINE HCL 25 MG CAPSULE PO SCH (21:33)
[2017-12-22] MEDS: OXYCODONE HCL IR 5 MG TABLET PO PRN ×6 (01:01→22:40)
[2017-12-22] MEDS: LEVOTHYROXINE SODIUM 0.1 MG TABLET PO SCH (07:02)
[2017-12-22] MEDS: HYDROCHLOROTHIAZIDE 12.5 MG CAPSULE PO SCH (07:58)
[2017-12-22] MEDS: AMLODIPINE BESYLATE 5 MG TABLET PO SCH (07:59)
[2017-12-22] MEDS: CARBIDOPA/LEVODOPA 25-100 MG TABLET PO SCH ×3 (07:59→16:55)
[2017-12-22] MEDS: ENALAPRIL MALEATE 10 MG TABLET PO SCH (07:59)
[2017-12-22] MEDS: ASPIRIN 81 MG TABLET, ENT COATED PO SCH (07:59)
[2017-12-22] MEDS: OMEGA-3 ACID ETHYL ESTERS 1 GM CAPSULE PO SCH (08:00)
--- NOTE | 2017-12-22 13:26 | PDOC PROGRESS REPORT ---
Subjective Subjective:: Patient lying in bed comfortably. Continues to complain of pain but notes it has been improving. Pain is worse with motion. Denies fever chills or sweats. Denies chest pain shortness of breath. Reason For Visit: SHOULDER DISLOCATION Physical Exam Vital Signs: Temp Pulse Resp BP Pulse Ox 98.4 F 88 18 109/80 98 12/22/17 12:00 12/22/17 12:00 12/22/17 12:00 12/22/17 12:00 12/22/17 12:00 Intake & Output 12/21/17 12/22/17 12/23/17 06:59 06:59 06:59 Intake Total 500 850 Output Total 600 750 300 Balance -100 100 -300 Musculoskeletal exam: PRESENT: other - Left Shoulder: Dressing c/d/i. Improved swelling/ecchymosis. Pain w/ ROM. Chronic contractures right hand secondary to parkinson's. Results Impressions: Shoulder X-Ray 12/14/17 21:52 IMPRESSION: Status post total right shoulder arthroplasty with anterior glenohumeral dislocation. Assessment & Plan - Diagnosis (1) Shoulder dislocation Qualifiers: Encounter type: initial encounter Laterality: right Qualified Code(s): S43.004A - Unspecified dislocation of right shoulder joint, initial encounter Is this a current diagnosis for this admission?: Yes Plan: Status post revision right total shoulder arthroplasty #1 pain control #2 aspirin for DVT prophylaxis #3 history of Parkinson's which complicates patient's total shoulder makes him high risk for instability. Patient will maintain current posture to avoid recurrent dislocation #4 discharge planning patient will require [facility] facility anticipate discharge Saturday
[2017-12-22] MEDS: FENOFIBRATE NANOCRYSTALLIZED 48 MG TABLET PO SCH (21:16)
[2017-12-22] MEDS: DIPHENHYDRAMINE HCL 25 MG CAPSULE PO SCH (21:17)
[2017-12-23] MEDS: OXYCODONE HCL IR 5 MG TABLET PO PRN ×3 (07:34→18:25)
[2017-12-23] MEDS: LEVOTHYROXINE SODIUM 0.1 MG TABLET PO SCH (07:34)
[2017-12-23] MEDS: OMEGA-3 ACID ETHYL ESTERS 1 GM CAPSULE PO SCH (09:17)
[2017-12-23] MEDS: HYDROCHLOROTHIAZIDE 12.5 MG CAPSULE PO SCH (09:18)
[2017-12-23] MEDS: CARBIDOPA/LEVODOPA 25-100 MG TABLET PO SCH ×3 (09:18→17:41)
[2017-12-23] MEDS: ENALAPRIL MALEATE 10 MG TABLET PO SCH (09:18)
[2017-12-23] MEDS: AMLODIPINE BESYLATE 5 MG TABLET PO SCH (09:18)
[2017-12-23] MEDS: ASPIRIN 81 MG TABLET, ENT COATED PO SCH (09:18)
[2017-12-23] MEDS: ACETAMINOPHEN 325 MG TABLET PO PRN (09:28)
[2017-12-23] MEDS: FENOFIBRATE NANOCRYSTALLIZED 48 MG TABLET PO SCH (19:52)
[2017-12-23] MEDS: DIPHENHYDRAMINE HCL 25 MG CAPSULE PO SCH (21:14)
[2017-12-24] MEDS: OXYCODONE HCL IR 5 MG TABLET PO PRN (00:20)
--- NOTE | 2017-12-24 07:13 | PDOC DISCHARGE SUMMARY ---
General - Admit/Disc Date/PCP Admission Date/Primary Care Provider: 12/16/17 16:09 Discharge Date: 12/24/17 - Discharge Diagnosis (1) Shoulder dislocation Is this a current diagnosis for this admission?: Yes - Additional Information Resuscitation Status: Full Code Discharge Diet: As Tolerated, Regular Discharge Activity: Balance Activity w/Rest, No Driving, No tub bath Home Medications: Acetaminophen [Tylenol Extra Strength 500 mg Tablet] 500 mg PO Q4HP PRN Amlodipine Besylate [Norvasc 5 mg Tablet] 5 mg PO QAM 12/15/17 Aspirin [Ecotrin 81 mg EC Tablet] 81 mg PO QAM 12/15/17 Carbidopa/Levodopa [Sinemet 25-100 mg Tablet] 0.5 tab PO MEALS 12/15/17 Enalapril Maleate [Vasotec 10 mg Tablet] 10 mg PO QAM 12/15/17 Fenofibrate Nanocrystallized [Fenofibrate] 48 mg PO DAILY@199912/15/17 Guaifenesin/D-Methorphan Hb [Guaifenesin Dm Syrup] 10 ml PO Q6HP PRN 12/15/17 Hydrochlorothiazide [Hydrodiuril 12.5 mg Capsule] 12.5 mg PO QAM 12/15/17 Levothyroxine Sodium [Synthroid 0.1 mg Tablet] 0.1 mg PO Q6AM 12/15/17 Loperamide HCl [Imodium 2 mg Capsule] 2 mg PO TIDP PRN 12/15/17 Mag Hydrox/Al Hydrox/Simeth [Maalox Suspension] 30 ml PO DAILYP PRN 12/15/17 Magnesium Hydroxide [Milk of Magnesia 30 ml Udcup] 30 ml PO HSP PRN 12/15/17 [place]-3 Fatty Acids/Fish Oil [Fish Oil 1,000 mg Capsule] 1,000 mg PO QAM Oxycodone HCl [Oxy-Ir 5 mg Tablet] 5 mg PO Q6HP PRN 12/15/17 History of Present Illness History of Present Illness: Patient is a 57-year-old white male with Parkinson's who is status post a right shoulder arthroplasty on November 14, 2017 presented with a prosthetic dislocation. Hospital Course Hospital Course: Patient was taken to the operating underwent underwent a revision arthroplasty which he tolerated well. He continues to complain of pain. Physical Exam Vital Signs: Temp Pulse Resp BP Pulse Ox 36.4 C 89 18 135/82 H 95 12/23/17 16:00 12/23/17 16:00 12/23/17 16:00 12/23/17 16:00 12/23/17 16:00 Intake & Output 12/23/17 12/24/17 12/25/17 06:59 06:59 06:59 Intake Total 560 Output Total 900 Balance -340 General appearance: PRESENT: mild distress Head exam: PRESENT: normocephalic Respiratory exam: PRESENT: unlabored Cardiovascular exam: PRESENT: RRR Pulses: PRESENT: +1 pedal pulses bilateral Vascular exam: PRESENT: normal capillary refill GI/Abdominal exam: PRESENT: soft Rectal exam: PRESENT: deferred Extremities exam: PRESENT: other - Right shoulder dressing clean dry and intact. Neurological exam: PRESENT: alert, awake, oriented to person, oriented to place , oriented to time, oriented to situation. ABSENT: motor sensory deficit Skin exam: PRESENT: dry, intact, warm. ABSENT: cyanosis, rash Results Impressions: Shoulder X-Ray 12/14/17 21:52 IMPRESSION: Status post total right shoulder arthroplasty with anterior glenohumeral dislocation. Status: Imported from PACS Qualifiers - * PATIENT BEING DISCHARGED WITH ANY OF THE FOLLOWING DIAGNOSIS: No VTE patient discharged on overlapping Therapy?: Yes Reason(s) for not prescribing Overlap Therapy:: Not indicated Plan Discharge Plan: [facility] Shoulder abduction pillow to be worn at all times. Patient be encouraged out of bed. Follow-up with Dr. Marquis [facility] for surgery in 2 weeks for staple removal.
[2017-12-24] MEDS: LEVOTHYROXINE SODIUM 0.1 MG TABLET PO SCH (07:27)
[2017-12-24] MEDS: ASPIRIN 81 MG TABLET, ENT COATED PO SCH (08:01)
[2017-12-24] MEDS: CARBIDOPA/LEVODOPA 25-100 MG TABLET PO SCH ×2 (08:01→11:22)
[2017-12-24] MEDS: ACETAMINOPHEN 325 MG TABLET PO PRN (08:01)
[2017-12-24] MEDS: ENALAPRIL MALEATE 10 MG TABLET PO SCH (08:02)
[2017-12-24] MEDS: AMLODIPINE BESYLATE 5 MG TABLET PO SCH (08:03)
[2017-12-24] MEDS: OMEGA-3 ACID ETHYL ESTERS 1 GM CAPSULE PO SCH (08:03)
[2017-12-24] MEDS: HYDROCHLOROTHIAZIDE 12.5 MG CAPSULE PO SCH (08:03)
[2017-12-24 09:13] VITALS: BP 150/93
== END 2017-12-24 12:43 | DRG 483 ==
LOC: ER 21:36 → EH 23:56 → 2S 12-15 01:37 → OBSVTOIN 12-16 16:09
PROVIDERS: ADMIT Orthopaedic Surgery; ATTEND Orthopaedic Surgery
PROC: 0RPJ0JZ Removal of Synthetic Substitute from Right Shoulder Joint, Open Approach (ICD-10-PCS; 2017-12-16)
PROC: 0RRJ0J6 Replacement of Right Shoulder Joint with Synthetic Substitute, Humeral Surface, Open Approach (ICD-10-PCS; principal; 2017-12-16 12:30)
DX: T84.028A Dislocation of other internal joint prosthesis, initial encounter (principal); G20 Parkinson's disease; M24.411 Recurrent dislocation, right shoulder; E03.9 Hypothyroidism, unspecified; I10 Essential (primary) hypertension; E78.00 Pure hypercholesterolemia, unspecified; K21.9 Gastro-esophageal reflux disease without esophagitis; Z96.611 Presence of right artificial shoulder joint
CPT/HCPCS: 01638; 36415; 80048; 85027; 85610; 85730; 87070; 87075; 87077; 87205; 99285; 99152; C9290; G0378; J0131; J0330; J1100; J1170; J1885; J2250; J2270; J2405; J2704; J3010; J3370; J3490; J7060; J7120; L3650

== ENCOUNTER 2017-12-27 18:06 | Emergency (ER) | payer MEDICARE, MEDICAID ==
--- NOTE | 2017-12-27 19:51 | ER Document Report ---
ED General - General Chief Complaint: Other Stated Complaint: ALTERED MENTAL STATUS Time Seen by Provider: 12/27/17 18:55 Notes: Patient is a 57-year-old male with a past medical history of Parkinson's currently resides in a nursing facility who presents with concerns on the facility's behalf that he expressed suicidal ideation earlier today during rehab. The patient denies any acute suicidal ideation stating he is only homesick and wishes you go back to [place] where his family lives. He laughs and jokes with me during assessment stating "if I wanted to kill myself I would have done a long time ago". He adamantly denies any suicidal plan, means or intention to complete suicide. He states that the facility does not listen to him and accused him of being suicidal today when he continued to express a desire to transfer out of [place] back to [place]. He denies any acute medical concerns. TRAVEL OUTSIDE OF THE [place] IN LAST 30 DAYS: No - Related Data Allergies/Adverse Reactions: Penicillins Allergy (Unknown, Verified 12/15/17 02:32) Anaphylaxis Past Medical History - General Information source: Patient - Social History Smoking Status: Never Smoker Chew tobacco use (# tins/day): No Frequency of alcohol use: None Drug Abuse: None Lives with: [facility] Family History: CAD, Hyperlipidemia, Hypertension, Malignancy. denies: Arthritis, COPD, CVA, Thyroid Disfunction Patient has suicidal ideation: No Patient has homicidal ideation: No - Past Medical History Cardiac Medical History: Reports: Hx Hypercholesterolemia, Hx Hypertension Denies: Hx Atrial Fibrillation, Hx Congestive Heart Failure, Hx Coronary Artery Disease, Hx Heart Attack, Hx Peripheral Vascular Disease, Hx Pulmonary Embolism, Hx Heart Murmur Pulmonary Medical History: Reports: Hx Pneumonia, Hx Sleep Apnea - should use one but doesn't have one currently Denies: Hx Asthma, Hx Bronchitis, Hx COPD, Hx Respiratory Failure, Hx Tuberculosis Neurological Medical History: Denies: Hx Cerebrovascular Accident, Hx Seizures Endocrine Medical History: Reports: Hx Hypothyroidism. Denies: Hx Graves' Disease, Hx Hyperthyroidism Renal/ Medical History: Denies: Hx Benign Prostatic Hyperplasia, Hx End Stage Renal Disease, Hx Kidney Stones, Hx Peritoneal Dialysis Malignancy Medical History: Denies Hx Lung Cancer GI Medical History: Denies: Hx Cirrhosis, Hx Gastroesophageal Reflux Disease, Hx Ulcer Musculoskeltal Medical History: Denies Hx Arthritis, Denies Hx Fibromyalgia, Denies Hx Multiple Sclerosis, Denies Hx Muscular Dystrophy, Reports Hx Musculoskeletal Deformity, Reports Hx Musculoskeletal Trauma Psychiatric Medical History: Reports: Hx Depression Denies: Hx Bipolar Disorder, Hx Dementia, Hx Schizophrenia Traumatic Medical History: Reports: Hx Fractures Past Surgical History: Reports: Hx Appendectomy, Hx Orthopedic Surgery - Herniated disc to the neck and lumbar area repaired. Right shoulder replac, Other - Cataracts. Denies: Hx Bowel Surgery, Hx Cholecystectomy, Hx Coronary Artery Bypass Graft, Hx Gastric Bypass Surgery, Hx Herniorrhaphy, Hx Pacemaker, Hx Tonsillectomy - Immunizations Immunizations up to date: Yes Hx Diphtheria, Pertussis, Tetanus Vaccination: Yes Review of Systems - Review of Systems Notes: Constitutional: Negative for fever. HENT: Negative for sore throat. Eyes: Negative for visual changes. Cardiovascular: Negative for chest pain. Respiratory: Negative for shortness of breath. Gastrointestinal: Negative for abdominal pain, vomiting or diarrhea. Genitourinary: Negative for dysuria. Musculoskeletal: Negative for back pain. Skin: Negative for rash. Neurological: Negative for headaches, weakness or numbness. 10 point ROS negative except as marked above and in HPI. Physical Exam - Vital signs Vitals: Temp Pulse Resp BP Pulse Ox 98.3 F 86 18 113/72 95 12/27/17 18:26 12/27/17 18:26 12/27/17 18:26 12/27/17 18:26 12/27/17 18:26 Interpretation: Normal Notes: PHYSICAL EXAMINATION: GENERAL: Well-appearing, well-nourished and in no acute distress. HEAD: Atraumatic, normocephalic. EYES: Pupils equal round and reactive to light, extraocular movements intact, sclera anicteric, conjunctiva are normal. ENT: nares patent, oropharynx clear without exudates. Moist mucous membranes. NECK: Normal range of motion, supple without lymphadenopathy LUNGS: Breath sounds clear to auscultation bilaterally and equal. No wheezes rales or rhonchi. HEART: Regular rate and rhythm without murmurs ABDOMEN: Soft, nontender, normoactive bowel sounds. No guarding, no rebound. No masses appreciated. EXTREMITIES: Right upper extremity in a sling. NEUROLOGICAL: No focal neurological deficits. Moves all extremities spontaneously and on command. PSYCH: Normal mood, normal affect. SKIN: Warm, Dry, normal turgor, no rashes or lesions noted. Course - Re-evaluation Re-evalutation: 12/27/17 19:51 Patient presents with no acute complaints. He was referred by his nursing facility having stated suicidal ideation earlier today during physical therapy he has no acute medical concerns. There is no indication for labs or imaging. I do not believe the patient is an acute safety concern, he does not meet involuntary commitment criteria and does not wish to remain in the emergency room for psychiatry services. At this time will discharge with return precautions and follow-up recommendations. Verbal discharge instructions given a the bedside and opportunity for questions given. Medication warnings reviewed. Patient is in agreement with this plan and has verbalized understanding of return precautions and the need for primary care follow-up in the next 24-72 hours. - Vital Signs Vital signs: Temp Pulse Resp BP Pulse Ox 98.3 F 86 18 113/72 95 12/27/17 18:26 12/27/17 18:26 12/27/17 18:26 12/27/17 18:26 12/27/17 18:26 Discharge - Discharge Clinical Impression: Well adult health check Depression Qualifiers: Depression Type: unspecified Qualified Code(s): F32.9 - Major depressive disorder, single episode, unspecified Condition: Good Disposition: HOME, SELF-CARE Additional Instructions: Please return if you have thoughts of wanting to hurt yourself, hurt others, or have any other symptoms that are concerning to you.
[2017-12-27 21:08] VITALS: BP 138/72
== END 2017-12-27 21:08 | disposition home or self-care (01) ==
LOC: ER 18:06
DX: F32.9 Major depressive disorder, single episode, unspecified (principal); R41.82 Altered mental status, unspecified; E78.00 Pure hypercholesterolemia, unspecified; I10 Essential (primary) hypertension; E03.9 Hypothyroidism, unspecified; G20 Parkinson's disease; Z88.0 Allergy status to penicillin
CPT/HCPCS: 99285

== ENCOUNTER 2018-05-18 17:25 | Inpatient (IN) | payer MEDICARE, MEDICAID ==
[2018-05-18] MEDS ORDERED: MORPHINE SULFATE 10 MG/ML INJ IV ONE (18:09)
--- NOTE | 2018-05-18 18:11 | RADIOLOGY REPORT (SQ) ---
EXAM DESCRIPTION: SHOULDER RIGHT 2 OR MORE VIEWS COMPLETED DATE/TIME: 05/18/2018 5:56 pm REASON FOR STUDY: dislocation COMPARISON: None. NUMBER OF VIEWS: Two views. TECHNIQUE: Internal rotation and Y-view images acquired of the right shoulder. LIMITATIONS: None. FINDINGS: MINERALIZATION: Normal. BONES: No fracture. Anterior dislocation of humeral head arthroplasty. JOINTS: See above. VISUALIZED LUNGS AND RIBS: No pneumothorax. No rib fracture. SOFT TISSUES: No radiopaque foreign body. OTHER: No other significant finding. IMPRESSION: Anterior dislocation. TECHNICAL DOCUMENTATION: JOB ID: [id number] [employer]- All Rights Reserved Reading location - IP/workstation name: [email or web address]
[2018-05-18] MEDS ORDERED: PROPOFOL INJ 200 MG/20 ML VIAL IV ONE ×2 (18:24→20:00)
--- NOTE | 2018-05-18 19:03 | ER Document Report ---
ED General - General Chief Complaint: Shoulder Injury Stated Complaint: RIGHT SHOULDER PAIN Time Seen by Provider: 05/18/18 18:22 Notes: Patient is a 57-year-old male with a past medical history of Parkinson's, chronic right shoulder dislocations who presents with a recurrent right shoulder dislocation. Patient states this occurred because he "slept on it wrong". He states when he woke up he had a dull, throbbing, constant pain to the shoulder worsened by any attempt at movement similar to when he has had dislocations in the past. Nothing improves the pain. He was transported by EMS from his nursing facility. He has had 2 shoulder replacements to the side most recently in February of this year due to inability to reduce the joint. Patient denies any associated weakness or numbness. TRAVEL OUTSIDE OF THE [place] IN LAST 30 DAYS: No - Related Data Allergies/Adverse Reactions: Penicillins Allergy (Unknown, Verified 12/15/17 02:32) Anaphylaxis Past Medical History - General Information source: Patient - Social History Smoking Status: Never Smoker Frequency of alcohol use: None Drug Abuse: None Lives with: [facility] Family History: CAD, Hyperlipidemia, Hypertension, Malignancy. denies: Arthritis, COPD, CVA, Thyroid Disfunction Patient has suicidal ideation: No Patient has homicidal ideation: No - Past Medical History Cardiac Medical History: Reports: Hx Hypercholesterolemia, Hx Hypertension Denies: Hx Atrial Fibrillation, Hx Congestive Heart Failure, Hx Coronary Artery Disease, Hx Heart Attack, Hx Peripheral Vascular Disease, Hx Pulmonary Embolism, Hx Heart Murmur Pulmonary Medical History: Reports: Hx Pneumonia, Hx Sleep Apnea - should use one but doesn't have one currently Denies: Hx Asthma, Hx Bronchitis, Hx COPD, Hx Respiratory Failure, Hx Tuberculosis Neurological Medical History: Denies: Hx Cerebrovascular Accident, Hx Seizures Endocrine Medical History: Reports: Hx Hypothyroidism. Denies: Hx Graves' Disease, Hx Hyperthyroidism Renal/ Medical History: Denies: Hx Benign Prostatic Hyperplasia, Hx End Stage Renal Disease, Hx Kidney Stones, Hx Peritoneal Dialysis Malignancy Medical History: Denies Hx Lung Cancer GI Medical History: Denies: Hx Cirrhosis, Hx Gastroesophageal Reflux Disease, Hx Ulcer Musculoskeletal Medical History: Denies Hx Arthritis, Denies Hx Fibromyalgia, Denies Hx Multiple Sclerosis, Denies Hx Muscular Dystrophy, Reports Hx Musculoskeletal Deformity, Reports Hx Musculoskeletal Trauma Psychiatric Medical History: Reports: Hx Depression Denies: Hx Bipolar Disorder, Hx Dementia, Hx Schizophrenia Traumatic Medical History: Reports: Hx Fractures Past Surgical History: Reports: Hx Appendectomy, Hx Orthopedic Surgery - Herniated disc to the neck and lumbar area repaired. Right shoulder replac, Other - Cataracts. Denies: Hx Bowel Surgery, Hx Cholecystectomy, Hx Coronary Artery Bypass Graft, Hx Gastric Bypass Surgery, Hx Herniorrhaphy, Hx Pacemaker, Hx Tonsillectomy - Immunizations Immunizations up to date: Yes Hx Diphtheria, Pertussis, Tetanus Vaccination: Yes Review of Systems - Review of Systems Notes: Constitutional: Negative for fever. HENT: Negative for sore throat. Eyes: Negative for visual changes. Cardiovascular: Negative for chest pain. Respiratory: Negative for shortness of breath. Gastrointestinal: Negative for abdominal pain, vomiting or diarrhea. Genitourinary: Negative for dysuria. Musculoskeletal: Positive for right shoulder pain and dislocation Skin: Negative for rash. Neurological: Negative for headaches, weakness or numbness. 10 point ROS negative except as marked above and in HPI. Physical Exam - Vital signs Vitals: Pulse Ox 99 05/18/18 19:43 Interpretation: Normal Notes: PHYSICAL EXAMINATION: GENERAL: Well-appearing, well-nourished and in no acute distress. HEAD: Atraumatic, normocephalic. EYES: Pupils equal round and reactive to light, extraocular movements intact, sclera anicteric, conjunctiva are normal. ENT: nares patent, oropharynx clear without exudates. Moist mucous membranes. NECK: Normal range of motion, supple without lymphadenopathy LUNGS: Breath sounds clear to auscultation bilaterally and equal. No wheezes rales or rhonchi. HEART: Regular rate and rhythm without murmurs, 2+ radial pulses bilaterally. Capillary refill less than 1 second in all digits of the right hand ABDOMEN: Soft, nontender, normoactive bowel sounds. No guarding, no rebound. No masses appreciated. EXTREMITIES: Apparent right anterior shoulder dislocation, unable to perform range of motion due to dislocation, extremity examination otherwise unremarkable. NEUROLOGICAL: No focal neurological deficits. Moves all extremities spontaneously and on command. PSYCH: Normal mood, normal affect. SKIN: Warm, Dry, normal turgor, no rashes or lesions noted. Course - Re-evaluation Re-evalutation: 05/18/18 19:03 Patient presents with recurrent right shoulder dislocation of which he has a long-standing history. Patient is extremely hard to reduce, I have attempted in the past and have been unsuccessful. Patient will undergo procedural sedation for an additional attempt at reducing the joint and if we are unsuccessful require orthopedic consultation. Neurovascularly intact. 05/18/18 21:17 I have been unable to successfully reduce the shoulder on 3 separate attempts with adequate sedation. Patient remains neurovascularly intact. I have discussed with Dr. Marquis who has accepted the patient for admission. - Vital Signs Vital signs: Temp Pulse Resp BP Pulse Ox 105 H 17 137/99 H 100 05/18/18 20:20 05/18/18 21:06 05/18/18 21:06 05/18/18 21:06 - Diagnostic Test Radiology reviewed: Image reviewed, Reports reviewed Radiology results interpreted by me: 05/18/18 19:03 Right shoulder x-ray: Anterior shoulder dislocation, shoulder arthroplasty Procedures - Conscious Sedation Conscious sedation Time started: 20:00 Time completed: 20:20 Consent obtained: Yes Pt with a mild systemic disease.: P2. - ASA Classification. Airway Evaluation: Normal anatomy Mallampati Classification: Class 1 Used during procedure: Suction available, IV access obtained, Pulse ox on pt., classroom monitor on pt. Medications administered: Diprivan Reversal agents: None I personally performed/intraservice time: Sedation, Procedure, 30 min or less Complications: No - Joint Reduction/Fracture Care Right Shoulder Time completed: 20:20 Consent obtained: Yes Conscious sedation: Yes Pre-procedure NV exam: Yes Fracture: Other Manipulation comment: Countertraction, downward and external rotation Post-procedure NV exam: Yes Post-reduction x-ray: Joint not reduced Reduction attempts: 2 Complications: No Discharge - Discharge Clinical Impression: Recurrent dislocation, right shoulder Condition: Fair Disposition: ADMITTED OBSERVATION Admitting Provider: [facility] Unit Admitted: Surgical Floor
[2018-05-18] MEDS ORDERED: (PENDING PHARMACY ID) (Menthol [Biofreeze] 1 APPLIC) TD PRN (23:47)
[2018-05-18] MEDS ORDERED: MAGNESIUM HYDROXIDE SUSP 30 ML UDCUP PO PRN (23:47)
[2018-05-18] MEDS ORDERED: GUAIFENESIN/D-METHORPHAN (200-20 MG) SYRUP 10 ML PO PRN (23:47)
[2018-05-18] MEDS ORDERED: ACETAMINOPHEN SUSP 160 MG/5 ML ORAL SYRING PO PRN (23:47)
[2018-05-18] MEDS ORDERED: MAG HYDROX/AL HYDROX/SIMETH SUSP 30 ML UDCUP PO PRN (23:47)
[2018-05-18] MEDS ORDERED: LOPERAMIDE HCL 2 MG CAPSULE PO PRN (23:47)
[2018-05-18] MEDS: OXYCODONE HCL IR 5 MG TABLET PO PRN (23:52)
[2018-05-19] MEDS: OXYCODONE HCL IR 5 MG TABLET PO PRN ×3 (06:26→22:13)
[2018-05-19] MEDS: LEVOTHYROXINE SODIUM 0.1 MG TABLET PO SCH (06:26)
--- NOTE | 2018-05-19 07:30 | PDOC H&P ---
History of Present Illness Admission Date/PCP: 05/18/18 22:40 History of Present Illness: GISSEL ALVA is a 57 year old male The patient is a 57-year-old white male with Parkinson's disease status post a right shoulder arthroplasty in the past who rolled over in bed and sustained a spontaneous dislocation of the right shoulder. Multiple attempts were to reduce this in the emergency room which were unsuccessful. Patient is admitted to the orthopedic service for treatment of the dislocated shoulder arthroplasty. Past Medical History Cardiac Medical History: Reports: Hyperlipidema, Hypertension Denies: Atrial Fibrillation, Congestive Heart Failure, Coronary Artery Disease, Myocardial Infarction, Peripheral Vascular Disease, Pulmonary Embolism , Heart Murmur Pulmonary Medical History: Reports: Pneumonia, Sleep Apnea - should use one but doesn't have one currently Denies: Asthma, Bronchitis, Chronic Obstructive Pulmonary Disease (COPD), Respiratory Failure, Tuberculosis Neurological Medical History: Denies: Seizures Endocrine Medical History: Reports: Hypothyroidism Denies: Hyperthyroidism Renal/ Medical History: Denies: End Stage Renal Disease Malignancy Medical History: Denies: Lung Cancer GI Medical History: Denies: Cirrhosis, Gastroesophageal Reflux Disease Musculoskeltal Medical History: Denies: Arthritis, Fibromyalgia Psychiatric Medical History: Reports: Depression Denies: Bipolar Disorder, Dementia Hematology: Denies: Anemia, Bleeding Tendencies Past Surgical History Past Surgical History: Reports: Appendectomy, Orthopedic Surgery - Herniated disc to the neck and lumbar area repaired. Right shoulder replac, Other - Cataracts Denies: Cholecystectomy, Coronary Artery Bypass Graft, Gastric Bypass Surgery , Herniorrhaphy, Pacemaker, Tonsillectomy Social History Information Source: Patient, Dr. Agee, [facility] Records Lives with: [facility] Smoking Status: Never Smoker Frequency of Alcohol Use: None Hx Recreational Drug Use: No Drugs: None Hx Prescription Drug Abuse: No Family History Family History: CAD, Hyperlipidemia, Hypertension, Malignancy. denies: Arthritis, COPD, CVA, Thyroid Disfunction Parental Family History Reviewed: No Children Family History Reviewed: No Sibling(s) Family History Reviewed.: No Medication/Allergy Home Medications: Acetaminophen [Tylenol Extra Strength 500 mg Tablet] 500 mg PO Q4HP PRN Amlodipine Besylate [Norvasc 5 mg Tablet] 5 mg PO QAM 12/15/17 Carbidopa/Levodopa [Sinemet 25-100 mg Tablet] 0.5 tab PO MEALS 12/15/17 Enalapril Maleate [Vasotec 10 mg Tablet] 10 mg PO QAM 12/15/17 Guaifenesin/D-Methorphan Hb [Guaifenesin Dm Syrup] 10 ml PO Q6HP PRN 12/15/17 Hydrochlorothiazide [Hydrodiuril 12.5 mg Capsule] 12.5 mg PO QAM 12/15/17 Levothyroxine Sodium [Synthroid 0.1 mg Tablet] 0.1 mg PO Q6AM 12/15/17 Loperamide HCl [Imodium 2 mg Capsule] 2 mg PO TIDP PRN 12/15/17 Mag Hydrox/Al Hydrox/Simeth [Maalox Suspension] 30 ml PO DAILYP PRN 12/15/17 Magnesium Hydroxide [Milk of Magnesia 30 ml Udcup] 30 ml PO HSP PRN 12/15/17 Menthol [Biofreeze] 1 applic TD BIDP PRN 05/18/18 Tramadol HCl [Ultram 50 mg Tablet] 50 mg PO Q4HP PRN 05/18/18 Allergies/Adverse Reactions: Penicillins Allergy (Unknown, Verified 12/15/17 02:32) Anaphylaxis Review of Systems All systems: as per PMH Physical Exam Vital Signs: Temp Pulse Resp BP Pulse Ox 36.7 C 101 H 18 147/94 H 94 05/18/18 22:58 05/18/18 22:58 05/18/18 22:58 05/18/18 22:58 05/18/18 22:58 Intake & Output 05/18/18 05/19/18 05/20/18 06:59 06:59 06:59 Intake Total 50 Balance 50 Weight 106.9 kg General appearance: PRESENT: no acute distress, mild distress, well-nourished Head exam: PRESENT: normocephalic Respiratory exam: PRESENT: unlabored Cardiovascular exam: PRESENT: RRR Pulses: PRESENT: normal radial pulses Musculoskeletal exam: PRESENT: other - Decreased active and passive range of motion of the right shoulder. Decreased right forearm supination which is unchanged from previous. Neurological exam: PRESENT: alert, oriented to person, oriented to place, oriented to time, oriented to situation, CN II-XII grossly intact Skin exam: PRESENT: dry, intact, warm. ABSENT: cyanosis, rash Results Impressions: Shoulder X-Ray 05/18/18 17:44 IMPRESSION: Anterior dislocation. Status: Imported from PACS Assessment & Plan - Diagnosis (1) Recurrent dislocation, right shoulder Is this a current diagnosis for this admission?: Yes Plan: 57-year-old white male with Parkinson's disease and a prosthetic right shoulder dislocation which is recurrent. Tentative plan will be to convert this to a reverse shoulder arthroplasty. Request a CT scan at this point to better understand glenoid anatomy. Anticipate surgery sometime later this week. - Time Time Spent: 50 to 70 Minutes Anticipated discharge: Other Within: Other
[2018-05-19] MEDS: AMLODIPINE BESYLATE 5 MG TABLET PO SCH (08:51)
[2018-05-19] MEDS: ENALAPRIL MALEATE 10 MG TABLET PO SCH (08:52)
[2018-05-19] MEDS: HYDROCHLOROTHIAZIDE 12.5 MG TABLET PO SCH (08:53)
[2018-05-19] MEDS: CARBIDOPA/LEVODOPA 25-100 MG TABLET PO SCH ×3 (08:53→17:25)
--- NOTE | 2018-05-19 10:35 | Physician Advisory Note ---
Physician Advisor ProgressNote .: Pursuant to the plan for [facility], I have reviewed the medical record for this patient. Physician Advisor Statement: STatus: 57yo Medicare SNF pt w/Parkinson's Dz, HTN, HLD, MARI not using CPAP, hypothyroidism, depression, recurrent Rt shoulder dislocations w/2 previous Rt shoulder replacements due to recurrent dislocations with inability to reduce joint - back with another acute dislocation from minimal antecedent (rolling over in bed), again unable to be reduced even with sedation, with assoc'd pain, recurrent tachycardia/worsened HTN, distress, acutely decreased AROM/PROM. Surgeon getting CT to better clarify current glenoid anatomy pre-op and planning surgery again tomorrow. Already in hospital care x 1MN & will have to stay a 2nd MN for continued acute eval/monitoring/tx. Appropriate for Inpt status. CK
--- NOTE | 2018-05-19 11:24 | RADIOLOGY REPORT (SQ) ---
EXAM DESCRIPTION: CT RT UPPER EXTREMITY WITHOUT COMPLETED DATE/TIME: 05/19/2018 10:47 am REASON FOR STUDY: right shoulder dislocation/trauma COMPARISON: Right shoulder films 11/16/2017, 11/25/2017, 12/12/2017, 12/14/2017, 05/18/2018 CT right shoulder 11/16/2017 TECHNIQUE: [facility] with reformatted oblique coronal and ob lique sagittal imaging windowed for bone and soft tissues. All CT scanners at this facility use dose modulation, iterative reconstruction, and/or weight based d osing when appropriate to reduce radiation dose to as low as reasonably achievable (ALARA). [facility]: Dose Right [facility]: CareDose [facility]: Dose Right [facility]: Teradose 4D [facility]: Melior Discovery RADIATION DOSE: CT Rad equipment meets quality standard of care and radiation dose reduction techniq ues were employed. CTDIvol: 23.2 mGy. DLP: 584 mGy-cm. mGy. LIMITATIONS: None. FINDINGS: Post right glenohumeral arthroplasty with metallic articular surface prosthesis over the h umeral head, and non radiopaque glenoid prosthesis. At the right glenohumeral joint, there is an anterior humeral head dislocation with respect to the gl enoid and glenoid prosthesis. This is best shown on axial images 28-37 on coronal image 48. There is periosteal new bone along the right proximal humeral metaphysis and bony glenoid. Right upper ribs are intact. AC joint and clavicle are intact. No fatty atrophy of the supraspinatus or infraspinatus muscles. Visualized right lung clear. IMPRESSION: Right glenohumeral joint arthroplasty with chronic appearing anterior dislocation of the humeral head out of the glenoid portion of the prosthesis TECHNICAL DOCUMENTATION: JOB ID: [id number] Quality ID # [id number]: Final reports with documentation of one or more dose reduction techniques (e.g., Au tomated exposure control, adjustment of the mA and/or kV according to patient size, use of iterative reconstruction technique) 2010 [employer]- All Rights Reserved Reading location - IP/workstation name: [email or web address]
[2018-05-19] MEDS: TRAMADOL HCL 50 MG TABLET PO PRN ×2 (17:36→22:14)
[2018-05-20] MEDS: LEVOTHYROXINE SODIUM 0.1 MG TABLET PO SCH (06:10)
[2018-05-20] MEDS: OXYCODONE HCL IR 5 MG TABLET PO PRN ×3 (06:10→22:34)
[2018-05-20] MEDS: TRAMADOL HCL 50 MG TABLET PO PRN ×3 (06:10→18:19)
--- NOTE | 2018-05-20 07:18 | PDOC PROGRESS REPORT ---
Subjective Progress Note for:: 05/20/18 Reason For Visit: RIGHT SHOULDER DISLOCATION 57-year-old white male with Parkinson's and a right dislocated total shoulder arthroplasty. Physical Exam Vital Signs: Temp Pulse Resp BP Pulse Ox 36.7 C 76 16 127/73 H 93 05/19/18 23:19 05/19/18 23:19 05/19/18 23:19 05/19/18 23:19 05/19/18 23:19 Intake & Output 05/19/18 05/20/18 05/21/18 06:59 06:59 06:59 Intake Total 50 688 Balance 50 688 Weight 106.9 kg 107 kg General appearance: PRESENT: no acute distress, mild distress, obese Head exam: PRESENT: normocephalic Respiratory exam: PRESENT: unlabored Cardiovascular exam: PRESENT: RRR Vascular exam: PRESENT: normal capillary refill GI/Abdominal exam: PRESENT: soft Rectal exam: PRESENT: deferred Extremities exam: PRESENT: other - Right shoulder with tenderness and decreased active and passive range of motion. Results Impressions: Shoulder X-Ray 05/18/18 17:44 IMPRESSION: Anterior dislocation. Upper Extremity CT 05/19/18 09:10 IMPRESSION: Right glenohumeral joint arthroplasty with chronic appearing anterior dislocation of the humeral head out of the glenoid portion of the prosthesis Status: Imported from PACS Assessment & Plan - Diagnosis (1) Recurrent dislocation, right shoulder Is this a current diagnosis for this admission?: Yes Plan: Plan will be for revision to a reverse shoulder arthroplasty tomorrow - Time Time Spent with patient: 15-24 minutes Anticipated discharge: SNF Within: Other
[2018-05-20] MEDS: HYDROCHLOROTHIAZIDE 12.5 MG TABLET PO SCH (09:39)
[2018-05-20] MEDS: ENALAPRIL MALEATE 10 MG TABLET PO SCH (09:39)
[2018-05-20] MEDS: CARBIDOPA/LEVODOPA 25-100 MG TABLET PO SCH ×3 (09:39→18:15)
[2018-05-20] MEDS: AMLODIPINE BESYLATE 5 MG TABLET PO SCH (09:40)
--- NOTE | 2018-05-20 18:33 | EKG REPORT ---
SEVERITY:- OTHERWISE NORMAL ECG - SINUS RHYTHM VENTRICULAR PREMATURE COMPLEX : Confirmed by: Aiden Yoo MD 20-May-2018 18:32:17
[2018-05-21] MEDS: TRAMADOL HCL 50 MG TABLET PO PRN ×3 (01:55→13:10)
[2018-05-21] MEDS: OXYCODONE HCL IR 5 MG TABLET PO PRN ×2 (04:50→16:25)
[2018-05-21] MEDS ORDERED: VANCOMYCIN HCL 1,000 MG in NORMAL SALINE 250 ML IV PRN (05:00)
[2018-05-21] MEDS ORDERED: TRANEXAMIC ACID INJ/PF 1,000 MG/10 ML SDV IV PRN (05:00)
[2018-05-21] MEDS: LEVOTHYROXINE SODIUM 0.1 MG TABLET PO SCH (06:33)
[2018-05-21] MEDS ORDERED: BUPIVACAINE INJ/PF LIPOSOME/PF 266 MG/20 ML SDV ONE (07:15)
[2018-05-21] MEDS ORDERED: FENTANYL CITRATE INJ/PF 100 MCG/2 ML AMPUL IV PRN ×6 (07:37→11:56)
[2018-05-21] MEDS ORDERED: PROMETHAZINE HCL INJ 25 MG/1 ML VIAL IV PRN ×5 (07:37→11:58)
[2018-05-21] MEDS ORDERED: DIPHENHYDRAMINE HCL 50 MG/ML VIAL IV PRN ×2 (07:37→11:56)
[2018-05-21] MEDS ORDERED: OXYCODONE-ACETAMINOPHEN 5-325 MG TABLET PO PRN ×4 (07:37→11:56)
[2018-05-21] MEDS ORDERED: MEPERIDINE HCL/PF INJ 25 MG/1 ML DISP.SYRIN IV PRN ×2 (07:37→11:56)
[2018-05-21] MEDS ORDERED: SUCCINYLCHOLINE CHLORIDE INJ 200 MG/10 ML VIAL ONE (08:11)
[2018-05-21] MEDS ORDERED: NEOSTIGMINE METHYLSULFATE 10 MG/10 ML VIAL ONE (08:11)
[2018-05-21] MEDS ORDERED: KETOROLAC TROMETHAMINE 60 MG/2 ML SDV ONE (08:11)
[2018-05-21] MEDS ORDERED: ROCURONIUM BROMIDE INJ 50 MG/5 ML VIAL IV ONE (08:11)
[2018-05-21] MEDS ORDERED: DEXAMETHASONE SOD PHOSPHATE INJ 4 MG/1 ML VIAL ONE (08:11)
[2018-05-21] MEDS ORDERED: GLYCOPYRROLATE 1 MG/5 ML SYRINGE ONE (08:11)
[2018-05-21] MEDS ORDERED: ONDANSETRON HCL INJ/PF 4 MG/2 ML SDV ONE (08:11)
[2018-05-21] MEDS ORDERED: FENTANYL CITRATE INJ/PF 100 MCG/2 ML AMPUL ONE (08:13)
[2018-05-21] MEDS ORDERED: FENTANYL CITRATE INJ/PF 250 MCG/5 ML AMPULE ONE (08:13)
[2018-05-21] MEDS ORDERED: PROPOFOL INJ 200 MG/20 ML VIAL IV ONE (08:13)
[2018-05-21] MEDS ORDERED: MIDAZOLAM 2 MG/2 ML INJ ONE (08:13)
[2018-05-21] MEDS ORDERED: TRANEXAMIC ACID INJ/PF 1,000 MG/10 ML SDV IV ONE ×2 (08:14→11:41)
[2018-05-21 08:38] LABS: ABSOLUTE EOSINOPHILS # (AUTO) 1.6 10^3/uL (0.0-0.6); ABSOLUTE LYMPHOCYTES (AUTO) 3.1 10^3/uL (0.5-4.7); ABSOLUTE MONOCYTES (AUTO) 0.6 10^3/uL (0.1-1.4); ABSOLUTE NEUT (AUTO) 3.3 10^3/uL (1.7-8.2); BASOPHILS % (AUTO) 0.4 % (0-2); EOSINOPHILS % (AUTO) 18.8 % (0-6); HEMATOCRIT 38.6 % (37.9-51.0); HEMOGLOBIN 13.2 g/dL (13.5-17.0); LYMPHOCYTES % (AUTO) 35.5 % (13-45); MEAN CORPUSCULAR HEMOGLOBIN 29.8 pg (27.0-33.4); MEAN CORPUSCULAR HGB CONC 34.1 g/dL (32.0-36.0); MEAN CORPUSCULAR VOLUME 87 fl (80-97); MONOCYTES % (AUTO) 7.3 % (3-13); PLATELET COUNT 201 10^3/uL (150-450); RED BLOOD COUNT 4.41 10^6/uL (4.35-5.55); RED CELL DISTRIBUTION WIDTH 13.3 % (11.5-14.0); TOTAL CELLS COUNTED % (AUTO) 100 %; WHITE BLOOD COUNT 8.7 10^3/uL (4.0-10.5)
[2018-05-21] MEDS: CARBIDOPA/LEVODOPA 25-100 MG TABLET PO SCH ×3 (08:38→18:32)
[2018-05-21 08:58] LABS: ANION GAP 7 (5-19); BLOOD UREA NITROGEN 13 mg/dL (7-20); CALCIUM 9.2 mg/dL (8.4-10.2); CARBON DIOXIDE 29 mmol/L (22-30); CHLORIDE 104 mmol/L (98-107); GLUCOSE 79 mg/dL (75-110); POTASSIUM 4.3 mmol/L (3.6-5.0); SODIUM 140.1 mmol/L (137-145)
--- NOTE | 2018-05-21 11:01 | Operative Report ---
Operative Report DATE OF SURGERY: 05/21/18 PREOPERATIVE DIAGNOSIS: Right prosthetic shoulder instability OPERATION: Revision right shoulder arthroplasty, conversion to a reverse shoulder SURGEON: [place] ANESTHESIA: GA TISSUE REMOVED OR ALTERED: Cultures x2 to microbiology, implants to CSS ESTIMATED BLOOD LOSS: 150 PROCEDURE: With the patient in a beachchair position on the operative table the right upper extremities prepped and draped in sterile fashion. A alto pectoral approach the right shoulder is performed in line with the previous surgery. Sharp dissection electrocautery used to carry the incision down to the level of the prosthesis. Once this is exposed cultures are taken x2. The exposure of the humeral head continues to the point where can be disimpacted and delivered from the field. Next the glenoid is exposed. Its easily removed using an osteotome followed by a drill to remove the cement plugs and polyethylene pegs. The remainder of the glenoid is cleared of soft tissue so this completely visualized. The bone holes in the existing glenoid and then filled with Hydrocet. The glenoid is then prepared for a reverse shoulder arthroplasty, specifically a 32 mm glenoid sphere. A central peg hole is drilled, the face reamed, and a Ngoc sphere base secured with 5 screws uneventfully. A 36 mm glenoid sphere is an impacted onto the baseplate. Next a 36 mm constrained humeral trial component is is mounted on the humerus and difficulty is experienced getting it reduced. Eventually using soft tissue releases and a shoehorn instrument the shoulder is reduced. In attempting to dislocate the shoulder which is also difficult the Glenosphere is displaced and is contaminated. Because a 36 mm Imelda appears not available 32 mm Gina fear is next impacted back onto the baseplate and secured to manual testing. A 32 mm constrained component is trialed and provides adequate stability. The final 32 mm constrained humeral component is impacted into the trunnion and secured to manual testing. The shoulder was reduced with moderate difficulty. Its taken through a range of motion and there does not appear to be any instability. The wound was irrigated with pulse lavage. Is closed using interrupted Vicryl followed by unique. A sterile compressive dressing and a shoulder sling are applied and the patient's return to the PACU in satisfactory condition.
[2018-05-21] MEDS: FENTANYL CITRATE INJ/PF 100 MCG/2 ML AMPUL ONE ×2 (11:22→11:42)
[2018-05-21] MEDS ORDERED: MORPHINE SULFATE 10 MG/ML INJ ONE (11:54)
[2018-05-21] MEDS ORDERED: MORPHINE SULFATE 10 MG/ML INJ IV PRN (11:58)
[2018-05-21] MEDS ORDERED: RINGERS SOLUTION,LACTATED 1,000 ML IV PRN ×2 (11:59)
[2018-05-21] MEDS ORDERED: ONDANSETRON 4 MG TAB.RAPDIS PO PRN (12:01)
[2018-05-21] MEDS: HYDROCHLOROTHIAZIDE 12.5 MG TABLET PO SCH (13:10)
[2018-05-21] MEDS: AMLODIPINE BESYLATE 5 MG TABLET PO SCH (13:10)
[2018-05-21] MEDS: ENALAPRIL MALEATE 10 MG TABLET PO SCH (13:11)
[2018-05-21] MEDS ORDERED: VANCOMYCIN HCL 1,000 MG in DEXTROSE 5%-WATER 250 ML IV ONE (21:00)
[2018-05-22] MEDS: OXYCODONE HCL IR 5 MG TABLET PO PRN ×3 (01:34→19:48)
[2018-05-22] MEDS: TRAMADOL HCL 50 MG TABLET PO PRN (06:01)
[2018-05-22] MEDS: LEVOTHYROXINE SODIUM 0.1 MG TABLET PO SCH (06:01)
--- NOTE | 2018-05-22 07:17 | PDOC PROGRESS REPORT ---
Subjective Progress Note for:: 05/22/18 Reason For Visit: RIGHT SHOULDER DISLOCATION 57-year-old white male postop day 1 status post right revision shoulder arthroplasty. Patient complaining of pain. He is also complaining of numbness and tingling in his fingers. Physical Exam Vital Signs: Temp Pulse Resp BP Pulse Ox 36.6 C 95 18 121/79 90 L 05/21/18 23:06 05/21/18 23:06 05/21/18 23:06 05/21/18 23:06 05/21/18 23:06 Pulse Oximeter Continuous Start: 05/21/18 13: 52 Freq: RTQ4 Status: Active Document 05/22/18 04:00 [facility] (Rec: 05/22/18 04:06 [facility] [email or web address]) Pulse Oximetry Assessment Equipment Usage Equipment Standby Continuous SpO2 Machine # 14 Intake & Output 05/21/18 05/22/18 05/23/18 06:59 06:59 06:59 Intake Total 955 3700 Output Total 1650 Balance 955 2050 Weight 106.9 kg 111.6 kg General appearance: PRESENT: mild distress, well-nourished Head exam: PRESENT: normocephalic Respiratory exam: PRESENT: unlabored Cardiovascular exam: PRESENT: RRR Pulses: PRESENT: normal radial pulses Vascular exam: PRESENT: normal capillary refill GI/Abdominal exam: PRESENT: soft Rectal exam: PRESENT: deferred Extremities exam: PRESENT: other - Right shoulder abduction pillow in place. There is old drainage on the dressing. The dressing is changed. The wound is well approximated with unique. There is no clear drainage at this point. There is no erythema. There is moderate tenderness. There is brisk capillary refill to each of the digits. Results Laboratory Results: 05/21/18 08:15 05/21/18 08:15 05/21/18 05/21/18 08:15 08:15 WBC 8.7 RBC 4.41 Hgb 13.2 L Hct 38.6 MCV 87 MCH 29.8 MCHC 34.1 RDW 13.3 Plt Count 201 Seg Neutrophils % 38.0 L Lymphocytes % 35.5 Monocytes % 7.3 Eosinophils % 18.8 H Basophils % 0.4 Absolute Neutrophils 3.3 Absolute Lymphocytes 3.1 Absolute Monocytes 0.6 Absolute Eosinophils 1.6 H Absolute Basophils 0.0 Sodium 140.1 Potassium 4.3 Chloride 104 Carbon Dioxide 29 Anion Gap 7 BUN 13 Creatinine 0.92 Est GFR ( Amer) > 60 Est GFR (Non-Af Amer) > 60 Glucose 79 Calcium 9.2 Impressions: Shoulder X-Ray 05/18/18 17:44 IMPRESSION: Anterior dislocation. Upper Extremity CT 05/19/18 09:10 IMPRESSION: Right glenohumeral joint arthroplasty with chronic appearing anterior dislocation of the humeral head out of the glenoid portion of the prosthesis Status: Imported from PACS Assessment & Plan - Diagnosis (1) Recurrent dislocation, right shoulder Is this a current diagnosis for this admission?: Yes Plan: Status post revision arthroplasty and conversion to a reverse shoulder arthroplasty. Patient tolerated the procedure without unexpected complications. Plan will be to mobilize the patient today on a weightbearing as tolerated basis. I have added IV acetaminophen to improve pain control without oversedation of narcotics. Anticipate the need for alf facility placement. - Time Time Spent with patient: 15-24 minutes Anticipated discharge: SNF Within: when bed available
[2018-05-22] MEDS: AMLODIPINE BESYLATE 5 MG TABLET PO SCH (10:45)
[2018-05-22] MEDS: CARBIDOPA/LEVODOPA 25-100 MG TABLET PO SCH ×3 (10:45→17:31)
[2018-05-22] MEDS: ENALAPRIL MALEATE 10 MG TABLET PO SCH (10:46)
[2018-05-22] MEDS: ACETAMINOPHEN 1,000 MG/100 ML RTUPB IV SCH ×2 (10:47→17:30)
[2018-05-22] MEDS: HYDROCHLOROTHIAZIDE 12.5 MG TABLET PO SCH (10:47)
[2018-05-23] MEDS: ACETAMINOPHEN 1,000 MG/100 ML RTUPB IV SCH ×3 (02:41→17:24)
[2018-05-23] MEDS: OXYCODONE HCL IR 5 MG TABLET PO PRN ×2 (02:42→08:47)
[2018-05-23] MEDS: LEVOTHYROXINE SODIUM 0.1 MG TABLET PO SCH (06:20)
[2018-05-23] MEDS: HYDROCHLOROTHIAZIDE 12.5 MG TABLET PO SCH (08:23)
[2018-05-23] MEDS: ENALAPRIL MALEATE 10 MG TABLET PO SCH (08:24)
[2018-05-23] MEDS: AMLODIPINE BESYLATE 5 MG TABLET PO SCH (08:24)
[2018-05-23] MEDS: CARBIDOPA/LEVODOPA 25-100 MG TABLET PO SCH ×3 (08:25→17:25)
--- NOTE | 2018-05-23 10:56 | PDOC TRANSFER SUMMARY ---
General - Admit/Disc Date/PCP Admission Date/Primary Care Provider: 05/18/18 22:40 Discharge Date: 05/23/18 - Discharge Diagnosis (1) Recurrent dislocation, right shoulder Is this a current diagnosis for this admission?: Yes - Additional Information Resuscitation Status: Full Code Home Medications: Acetaminophen [Tylenol Extra Strength 500 mg Tablet] 500 mg PO Q4HP PRN Amlodipine Besylate [Norvasc 5 mg Tablet] 5 mg PO QAM 12/15/17 Carbidopa/Levodopa [Sinemet 25-100 mg Tablet] 0.5 tab PO MEALS 12/15/17 Guaifenesin/D-Methorphan Hb [Guaifenesin Dm Syrup] 10 ml PO Q6HP PRN 12/15/17 Hydrochlorothiazide [Hydrodiuril 12.5 mg Tablet] 12.5 mg PO QAM 12/15/17 Levothyroxine Sodium [Synthroid 0.1 mg Tablet] 0.1 mg PO Q6AM 12/15/17 Loperamide HCl [Imodium 2 mg Capsule] 2 mg PO TIDP PRN 12/15/17 Mag Hydrox/Al Hydrox/Simeth [Maalox Suspension] 30 ml PO DAILYP PRN 12/15/17 Magnesium Hydroxide [Milk of Magnesia 30 ml Udcup] 30 ml PO HSP PRN 12/15/17 Menthol [Biofreeze] 1 applic TD BIDP PRN 05/18/18 Tramadol HCl [Ultram 50 mg Tablet] 50 mg PO Q4HP PRN 05/18/18 Lisinopril [Prinivil 10 mg Tablet] 10 mg PO QAM 05/19/18 Mupirocin [Bactroban 2% Ointment 22 gm] 1 applic TOP TID 05/19/18 History of Present Illness Admission Date/PCP: 05/18/18 22:40 History of Present Illness: Patient is a 57-year-old white male status post right shoulder arthroplasty who presented to the emergency room with a presumed acute right prosthetic shoulder dislocation. This is unable to be reduced in the emergency room. The patient is admitted to the orthopedic service for dislocation management. Hospital Course Hospital Course: The patient's condition is optimized the subsequent taken to the operating room where revision of the right total shoulder arthroplasty was performed converting it to a reverse shoulder arthroplasty. The patient tolerates the procedure without complication. Is returned to floor in satisfactory condition. Dressing is changed because of wound drainage. The wound remains well approximated with unique. There is no erythema or induration. Pain control is initially problematic but there is a transition from parenteral to enteral analgesics which is successful. The patient maintains his mobility. He is also maintained in a shoulder immobilizer. Physical Exam Vital Signs: Temp Pulse Resp BP Pulse Ox 36.7 C 90 15 126/79 H 91 L 05/23/18 07:18 05/23/18 08:24 05/23/18 07:18 05/23/18 08:24 05/23/18 09:38 Pulse Oximeter Continuous Start: 05/21/18 13: 52 Freq: RTQ4 Status: Active Document 05/23/18 09:38 [facility] (Rec: 05/23/18 09:38 [facility] [email or web address]) Pulse Oximetry Assessment Oxygen Saturation (92-100) 91 Oxygen Delivery Method Room Air Fraction of Inspired Oxygen (FIO2) 21 Equipment Usage Equipment Standby Continuous SpO2 Machine # == Intake & Output 05/22/18 05/23/18 05/24/18 06:59 06:59 06:59 Intake Total 3700 736 Output Total 1650 Balance 2050 736 Weight 111.6 kg 111.6 kg General appearance: PRESENT: no acute distress, mild distress, well-nourished Head exam: PRESENT: normocephalic Respiratory exam: PRESENT: unlabored Cardiovascular exam: PRESENT: RRR GI/Abdominal exam: PRESENT: soft Rectal exam: PRESENT: deferred Musculoskeletal exam: PRESENT: other - Right upper extremity in a shoulder immobilizer. Incision is covered with a new OpSite dressing. This is clean dry and intact. Distally there is brisk capillary refill. Skin exam: PRESENT: dry, intact, warm. ABSENT: cyanosis, rash Results Laboratory Results: 05/21/18 08:15 05/21/18 08:15 Impressions: Shoulder X-Ray 05/18/18 17:44 IMPRESSION: Anterior dislocation. Upper Extremity CT 05/19/18 09:10 IMPRESSION: Right glenohumeral joint arthroplasty with chronic appearing anterior dislocation of the humeral head out of the glenoid portion of the prosthesis Status: Imported from PACS Transfer Plan - Disposition Transfer Plan: Patient to be transferred back to [facility] nursing [facility] which is where he came from. Dressing can be changed on a as needed basis. Follow-up with Dr. Kandis Cartwright [place] for surgery in 2 weeks for staple removal. - Time Spent with Patient Time spent with patient: Less than 30 Minutes Qualifiers - * PATIENT BEING DISCHARGED WITH ANY OF THE FOLLOWING DIAGNOSIS: No VTE patient discharged on overlapping Therapy?: No Reason(s) for not prescribing Overlap Therapy:: Not indicated - Patient remains ambulatory Plan Discharge Plan: Patient to be discharged to [facility] facility. Right shoulder dressing can be changed as needed. Oxycodone as analgesia. Follow-up with Dr. Kandis Cartwright [place] for surgery in 2 weeks for staple removal. No request at this time for occupational therapy to begin range of motion exercises. Time Spent: Less than 30 Minutes
[2018-05-23] MEDS ORDERED: MAGNESIUM CITRATE 296 ML BOTTLE PO ONE (14:30)
[2018-05-23] MEDS ORDERED: NA PHOS,M-B/NA PHOS,DI-BA (ADULT) 133 ML ENEMA PR ONE (17:00)
[2018-05-23 20:32] VITALS: BP 124/81
[2018-05-24] MEDS ORDERED: ACETAMINOPHEN 1,000 MG/100 ML RTUPB IV SCH (10:00)
== END 2018-05-23 20:25 | DRG 483 ==
LOC: ER 17:25 → EH 21:22 → 4S 22:30 → OBSVTOIN 22:40
PROVIDERS: ADMIT Orthopaedic Surgery; ATTEND Orthopaedic Surgery
PROC: 0RPJ0JZ Removal of Synthetic Substitute from Right Shoulder Joint, Open Approach (ICD-10-PCS; 2018-05-21)
PROC: 0RRJ00Z Replacement of Right Shoulder Joint with Reverse Ball and Socket Synthetic Substitute, Open Approach (ICD-10-PCS; principal; 2018-05-21 09:15)
PROC: 3E02340 Introduction of Influenza Vaccine into Muscle, Percutaneous Approach (ICD-10-PCS; 2018-05-23)
DX: T84.028A Dislocation of other internal joint prosthesis, initial encounter (principal); Z96.611 Presence of right artificial shoulder joint; G20 Parkinson's disease; E78.5 Hyperlipidemia, unspecified; I10 Essential (primary) hypertension; G47.30 Sleep apnea, unspecified; K21.9 Gastro-esophageal reflux disease without esophagitis; E03.9 Hypothyroidism, unspecified; F32.9 Major depressive disorder, single episode, unspecified; Z90.49 Acquired absence of other specified parts of digestive tract; Z82.49 Family history of ischemic heart disease and other diseases of the circulatory system; Z83.438 Family history of other disorder of lipoprotein metabolism and other lipidemia; Z88.0 Allergy status to penicillin; Z23 Encounter for immunization
CPT/HCPCS: 01638; 36415; 80048; 85025; 87070; 87075; 87205; 90471; 90686; 93005; 93010; 94762; 96374; 99285; 99152; C1713; C1776; C9290; G0008; J0131; J0330; J1100; J1885; J2250; J2270; J2405; J2704; J3010; J3370; J3490; J7060; J7120; L3650

== ENCOUNTER 2018-06-02 11:52 | Emergency (ER) | payer MEDICARE, MEDICAID ==
[2018-06-02 13:03] VITALS: BP 117/73
--- NOTE | 2018-06-02 13:06 | ER Document Report ---
ED Extremity Problem, Upper - General Information source: Patient TRAVEL OUTSIDE OF THE [place] IN LAST 30 DAYS: No <HUSAM CHEN - Last Filed: 06/02/18 13:20> <CRISS MARION - Last Filed: 06/02/18 14:02> - General Chief Complaint: Shoulder Pain Stated Complaint: SURGICAL SITE BLEEDING Time Seen by Provider: 06/02/18 12:12 Notes: 57-year-old female who presents to the emergency department today with complaints of a right shoulder postop complication. Patient has had a right shoulder replacement in the past. 2 weeks ago the patient dislocated his shoulder and it was unable to be reduced in the ER so it had to be reduced in the operating room. Patient was discharged to a nursing facility where he states the wound has been oozing blood since discharge. Patient denies any new injuries to the area. (HUSAM CHEN) - Related Data Allergies/Adverse Reactions: Penicillins Allergy (Unknown, Verified 12/15/17 02:32) Anaphylaxis Past Medical History - General Information source: Patient - Social History Smoking Status: Unknown if Ever Smoked Cigarette use (# per day): No Chew tobacco use (# tins/day): No Frequency of alcohol use: None Drug Abuse: None Lives with: Family Family History: CAD, Hyperlipidemia, Hypertension, Malignancy Patient has suicidal ideation: No Patient has homicidal ideation: No - Past Medical History Cardiac Medical History: Reports: Hx Hypercholesterolemia, Hx Hypertension Pulmonary Medical History: Reports: Hx Pneumonia, Hx Sleep Apnea - should use one but doesn't have one currently Musculoskeletal Medical History: Reports Hx Musculoskeletal Deformity, Reports Hx Musculoskeletal Trauma Psychiatric Medical History: Reports: Hx Depression Traumatic Medical History: Reports: Hx Fractures Past Surgical History: Reports: Hx Appendectomy, Hx Orthopedic Surgery - Herniated disc to the neck and lumbar area repaired. Right shoulder replac, Other - Cataracts - Immunizations Immunizations up to date: Yes Hx Diphtheria, Pertussis, Tetanus Vaccination: Yes <HUSAM CHEN - Last Filed: 06/02/18 13:20> Review of Systems - Review of Systems Constitutional: No symptoms reported EENT: No symptoms reported Cardiovascular: No symptoms reported Respiratory: No symptoms reported Gastrointestinal: No symptoms reported Genitourinary: No symptoms reported Male Genitourinary: No symptoms reported Musculoskeletal: No symptoms reported Skin: See HPI, Other - right shoulder post-op bleeding Hematologic/Lymphatic: No symptoms reported Neurological/Psychological: No symptoms reported -: Yes All other systems reviewed and negative <HUSAM CHEN - Last Filed: 06/02/18 13:20> Physical Exam <HUSAM CHEN - Last Filed: 06/02/18 13:20> <CRISS MARION - Last Filed: 06/02/18 14:02> - Vital signs Vitals: Pulse Ox 92 06/02/18 12:22 - Notes Notes: Physical Exam: General: Alert, appears at baseline according to records. HEENT: Normocephalic. Atraumatic. PERRL. Extraocular movements intact. Oropharynx clear. Neck: Supple. Non-tender. Respiratory: No respiratory distress. Clear and equal breath sounds bilaterally. Cardiovascular: Regular rate and rhythm. Abdominal: Normal Inspection. Non-tender. No distension. Normal Bowel Sounds. Back: Non-tender. No deformity or step off. Extremities: Moves all four extremities. Upper extremities: LUE tremor. RUE in post-op sling. Lower extremities: Normal inspection. No edema. Normal ROM. Neurological: Normal cognition. AAOx4. Normal speech. LUE tremor consistent with Parkinson's Disease. Psychological: At baseline according to records. Skin: Right anterior shoulder surgery scar with unique in place. Distal portion of scar seems to be less healed than proximal portion. Distal portion has area that is draining dark red blood. Blood expressed from area and then completely dried. Gauze was rolled from proximal portion to distal down the scar which again expresses dark red blood. This was done multiple times with the same result. (HUSAM CHEN) Course - Consults Dr. Marquis Time consulted: 13:45 Consulted provider: follow-up in office <CRISS MARION - Last Filed: 06/02/18 14:02> - Vital Signs Vital signs: Temp Pulse Resp BP Pulse Ox 117/73 93 06/02/18 13:01 06/02/18 13:02 Discharge <HUSAM CHEN - Last Filed: 06/02/18 13:20> <CRISS MARION - Last Filed: 06/02/18 14:02> - Discharge Clinical Impression: Encounter for change or removal of surgical wound dressing, Surgical wound hematoma Condition: Stable Disposition: SNF-Other Additional Instructions: The bloody drainage from your arm seems to be due to venous bleeding deep inside the surgical wound. A compression dressing was placed to try to stop the blood from continuing to ooze. Keep the dressing with the Andrea wrap intact. Follow-up with Dr. Marquis in the office tomorrow. RETURN TO THE EMERGENCY ROOM IF ANY NEW OR WORSENING SYMPTOMS. Jairibe Attestation: 06/02/18 13:23 I personally performed the services described in the documentation, reviewed and edited the documentation which was dictated to the scribe in my presence, and it accurately records my words and actions. (CRISS MARION) Scribe Documentation - Scribe Written by Kingsley:: Kingsley Hernández, 06/02/2018 1323 acting as scribe for :: Kole <HUSAM CHEN - Last Filed: 06/02/18 13:20>
== END 2018-06-02 15:24 ==
LOC: ER 11:52
DX: T84.028D Dislocation of other internal joint prosthesis, subsequent encounter (principal); X58.XXXD Exposure to other specified factors, subsequent encounter; Z98.890 Other specified postprocedural states; Z96.611 Presence of right artificial shoulder joint; R25.1 Tremor, unspecified; I10 Essential (primary) hypertension; Z87.892 Personal history of anaphylaxis; Z88.0 Allergy status to penicillin
CPT/HCPCS: 99284

== ENCOUNTER 2018-06-03 05:31 | Inpatient (IN) | payer MEDICARE, MEDICAID ==
[2018-06-03] MEDS ORDERED: CEFTRIAXONE INJ 1000 MG VIAL IV ONE (06:23)
[2018-06-03] MEDS ORDERED: NORMAL SALINE 500 ML IV ONE (06:25)
[2018-06-03] MEDS ORDERED: CEPHALEXIN 500 MG CAPSULE PO ONE (06:40)
--- NOTE | 2018-06-03 06:46 | ER Document Report ---
ED General - General Chief Complaint: Fever Stated Complaint: WEAKNESS Time Seen by Provider: 06/03/18 06:00 Mode of Arrival: Medic Information source: Emergency Med Personnel, [facility] Records Notes: 57-year-old male with hypertension, hyperlipidemia, hypothyroidism, Parkinson's disease presents with chief complaint of "sick". Patient was seen yesterday for right shoulder pain and oozing from the surgical site. Patient recently underwent shoulder surgery with Dr. Marquis. At that time the provider did touch base with Dr. Marquis and placed a compressive dressing onto the area and arranged follow-up for the patient today. Today he was sent from his [facility] facility for a reported temp of 103 tympanically. EMS reports upon their arrival patient had a temp of 98. Patient is a difficult informant to question. When asked why he is here today he tells me that he does not know. He continually states that he wants nothing to do with Dr. Marquis. He denies headache, nausea, vomiting, sore throat, chest pain, cough, abdominal pain, diarrhea, difficulty urinating, painful urinating. Per review of yesterday's physical exam there is no evidence of an action of the shoulder. TRAVEL OUTSIDE OF THE [place] IN LAST 30 DAYS: No - HPI Onset: This morning Onset/Duration: Sudden Quality of pain: No pain Severity: None Associated symptoms: Fever. denies: Chest pain, Chills, Nonproductive cough, Productive cough, Diarrhea, Headache, Nausea, Vomiting, Shortness of breath Exacerbated by: Denies Relieved by: Denies Similar symptoms previously: Yes Recently seen / treated by doctor: Yes - 06/02/2018 - Related Data Allergies/Adverse Reactions: Penicillins Allergy (Unknown, Verified 12/15/17 02:32) Anaphylaxis Past Medical History - General Information source: Patient, [facility] Records - Social History Smoking Status: Former Smoker Chew tobacco use (# tins/day): No Frequency of alcohol use: None Drug Abuse: None Lives with: Correction Family History: CAD, Hyperlipidemia, Hypertension, Malignancy Patient has suicidal ideation: No Patient has homicidal ideation: No - Past Medical History Cardiac Medical History: Reports: Hx Hypercholesterolemia, Hx Hypertension Denies: Hx Atrial Fibrillation, Hx Congestive Heart Failure, Hx Coronary Artery Disease, Hx Heart Attack, Hx Peripheral Vascular Disease, Hx Pulmonary Embolism, Hx Heart Murmur Pulmonary Medical History: Reports: Hx Pneumonia, Hx Sleep Apnea - should use one but doesn't have one currently Denies: Hx Asthma, Hx Bronchitis, Hx COPD, Hx Respiratory Failure, Hx Tuberculosis Neurological Medical History: Denies: Hx Cerebrovascular Accident, Hx Seizures Endocrine Medical History: Reports: Hx Hypothyroidism. Denies: Hx Graves' Disease, Hx Hyperthyroidism Renal/ Medical History: Denies: Hx Benign Prostatic Hyperplasia, Hx End Stage Renal Disease, Hx Kidney Stones, Hx Peritoneal Dialysis Malignancy Medical History: Denies Hx Lung Cancer GI Medical History: Denies: Hx Cirrhosis, Hx Gastroesophageal Reflux Disease, Hx Ulcer Musculoskeletal Medical History: Denies Hx Arthritis, Denies Hx Fibromyalgia, Denies Hx Multiple Sclerosis, Denies Hx Muscular Dystrophy, Reports Hx Musculoskeletal Deformity, Reports Hx Musculoskeletal Trauma Psychiatric Medical History: Reports: Hx Depression Denies: Hx Bipolar Disorder, Hx Dementia, Hx Schizophrenia Traumatic Medical History: Reports: Hx Fractures Past Surgical History: Reports: Hx Appendectomy, Hx Orthopedic Surgery - Herniated disc to the neck and lumbar area repaired. Right shoulder replac, Other - Cataracts. Denies: Hx Bowel Surgery, Hx Cholecystectomy, Hx Coronary Artery Bypass Graft, Hx Gastric Bypass Surgery, Hx Herniorrhaphy, Hx Pacemaker, Hx Tonsillectomy - Immunizations Immunizations up to date: Yes Hx Diphtheria, Pertussis, Tetanus Vaccination: Yes Review of Systems - Review of Systems Notes: REVIEW OF SYSTEMS: CONSTITUTIONAL : Denies chills, or sweats. Denies recent illness. Denies weight loss, recent hospitalizations. EENT: Denies visual changes, eye pain. Denies sore throat, oral lesions, difficulty swallowing. CARDIOVASCULAR: Denies chest pain. Denies palpitations. Denies lower extremity edema. RESPIRATORY: Denies cough. Denies shortness of breath, wheezing. GASTROINTESTINAL: Denies abdominal pain or distention. Denies nausea, vomiting , or diarrhea. Denies blood in vomitus, stools, or per rectum. Denies black, tarry stools. Denies constipation. GENITOURINARY: Denies difficulty urinating, painful urination, frequency, blood in urine, testicular pain or penile discharge. MUSCULOSKELETAL: Denies back or neck pain or stiffness. Denies joint pain or swelling. SKIN: Denies rash, lesions or sores. HEMATOLOGIC : Denies easy bruising . LYMPHATIC: Denies swollen glands. NEUROLOGICAL: Denies confusion or altered mental status. Denies loss of consciousness. Denies dizziness or lightheadedness. Denies headache. Denies weakness or paralysis. Denies problems difficulty with ambulation, slurred speech. Denies sensory loss, numbness, or tingling. Denies seizures. PSYCHIATRIC: Denies anxiety or stress. Denies depression, suicidal ideation, or Physical Exam - Vital signs Vitals: Temp Pulse Resp BP Pulse Ox 99.3 F 106 H 18 103/70 96 06/03/18 05:47 06/03/18 05:47 06/03/18 05:47 06/03/18 05:47 06/03/18 05:47 Interpretation: Tachycardic. No: Febrile - Notes Notes: PHYSICAL EXAMINATION: GENERAL: Well-appearing, well-nourished and in no acute distress. HEAD: Atraumatic, normocephalic. EYES: Pupils equal round and reactive to light, extraocular movements intact, sclera anicteric, conjunctiva are normal. ENT: Nares patent, oropharynx clear without exudates. Dry mucous membranes. NECK: Normal range of motion, supple without lymphadenopathy LUNGS: Breath sounds clear to auscultation bilaterally and equal. No wheezes rales or rhonchi. HEART: Regular rate and rhythm without murmurs ABDOMEN: Soft, nontender, nondistended abdomen. No guarding, no rebound. No masses appreciated. Musculoskeletal: Normal range of motion, no pitting or edema. No cyanosis. Right shoulder with compression bandage in place. No erythema of the exposed skin. NEUROLOGICAL: Cranial nerves grossly intact. Normal speech, normal gait. Normal sensory, motor exams PSYCH: Normal mood, normal affect. SKIN: Warm, Dry, normal turgor, no rashes or lesions noted. Course - Re-evaluation Re-evalutation: 06/03/18 15:36 Laboratory 06/03/18 06/03/18 06/03/18 06:40 06:40 06:40 WBC 11.6 H RBC 3.41 L Hgb 10.1 L Hct 29.0 L MCV 85 MCH 29.5 MCHC 34.6 RDW 14.3 H Plt Count 224 Total Counted 100 Seg Neutrophils % Not Reportable Seg Neuts % (Manual) 82 H Band Neutrophils % 1 L Lymphocytes % Not Reportable Lymphocytes % (Manual) 4 L Monocytes % Not Reportable Monocytes % (Manual) 0 L Eosinophils % Not Reportable Eosinophils % (Manual) 13 H Basophils % Not Reportable Basophils % (Manual) 0 Absolute Neutrophils Not Reportable Abs Neuts (Manual) 9.6 H Absolute Lymphocytes Not Reportable Abs Lymphs (Manual) 0.5 Absolute Monocytes Not Reportable Abs Monocytes (Manual) 0.0 L Absolute Eosinophils Not Reportable Absolute Eos (Manual) 1.5 H Absolute Basophils Not Reportable Abs Basophils (Manual) 0.0 Toxic Vacuolation PRESENT Clumped Platelets PRESENT Large Platelets PRESENT Giant Platelets PRESENT Platelet Comment ADEQUATE Anisocytosis SLIGHT PT 44.6 H INR 4.48 VBG pH VBG pCO2 VBG HCO3 VBG Base Excess Sodium Cancelled Potassium Cancelled Chloride Cancelled Carbon Dioxide Cancelled Anion Gap Cancelled BUN Cancelled Creatinine Cancelled Est GFR ( Amer) Cancelled Est GFR (Non-Af Amer) Cancelled Glucose Cancelled POC Glucose Lactic Acid Calcium Cancelled Total Bilirubin Cancelled Direct Bilirubin Cancelled Neonat Total Bilirubin Cancelled Neonat Direct Bilirubin Cancelled Neonat Indirect Bili Cancelled AST Cancelled ALT Cancelled Alkaline Phosphatase Cancelled Total Protein Cancelled Albumin Cancelled Urine Color Urine Appearance Urine pH Ur Specific [place]dido Urine Protein Urine Glucose (UA) Urine Ketones Urine Blood Urine Nitrite Urine Bilirubin Urine Urobilinogen Ur Leukocyte Esterase Urine WBC (Auto) Urine RBC (Auto) Urine Bacteria (Auto) Squamous Epi Cells Auto Urine Mucus (Auto) Urine Ascorbic Acid 06/03/18 06/03/18 06/03/18 06:40 06:40 07:43 WBC RBC Hgb Hct MCV MCH MCHC RDW Plt Count Total Counted Seg Neutrophils % Seg Neuts % (Manual) Band Neutrophils % Lymphocytes % Lymphocytes % (Manual) Monocytes % Monocytes % (Manual) Eosinophils % Eosinophils % (Manual) Basophils % Basophils % (Manual) Absolute Neutrophils Abs Neuts (Manual) Absolute Lymphocytes Abs Lymphs (Manual) Absolute Monocytes Abs Monocytes (Manual) Absolute Eosinophils Absolute Eos (Manual) Absolute Basophils Abs Basophils (Manual) Toxic Vacuolation Clumped Platelets Large Platelets Giant Platelets Platelet Comment Anisocytosis PT INR VBG pH 7.41 VBG pCO2 40.6 VBG HCO3 25.2 VBG Base Excess 0.6 Sodium Potassium Chloride Carbon Dioxide Anion Gap BUN Creatinine Est GFR ( Amer) Est GFR (Non-Af Amer) Glucose POC Glucose 105 Lactic Acid 0.7 Calcium Total Bilirubin Direct Bilirubin Neonat Total Bilirubin Neonat Direct Bilirubin Neonat Indirect Bili AST ALT Alkaline Phosphatase Total Protein Albumin Urine Color Urine Appearance Urine pH Ur Specific [place] Urine Protein Urine Glucose (UA) Urine Ketones Urine Blood Urine Nitrite Urine Bilirubin Urine Urobilinogen Ur Leukocyte Esterase Urine WBC (Auto) Urine RBC (Auto) Urine Bacteria (Auto) Squamous Epi Cells Auto Urine Mucus (Auto) Urine Ascorbic Acid 06/03/18 06/03/18 07:43 08:22 WBC RBC Hgb Hct MCV MCH MCHC RDW Plt Count Total Counted Seg Neutrophils % Seg Neuts % (Manual) Band Neutrophils % Lymphocytes % Lymphocytes % (Manual) Monocytes % Monocytes % (Manual) Eosinophils % Eosinophils % (Manual) Basophils % Basophils % (Manual) Absolute Neutrophils Abs Neuts (Manual) Absolute Lymphocytes Abs Lymphs (Manual) Absolute Monocytes Abs Monocytes (Manual) Absolute Eosinophils Absolute Eos (Manual) Absolute Basophils Abs Basophils (Manual) Toxic Vacuolation Clumped Platelets Large Platelets Giant Platelets Platelet Comment Anisocytosis PT INR VBG pH VBG pCO2 VBG HCO3 VBG Base Excess Sodium 133.0 L Potassium 3.2 L Chloride 94 L Carbon Dioxide 26 Anion Gap 13 BUN 29 H Creatinine 1.21 Est GFR ( Amer) > 60 Est GFR (Non-Af Amer) > 60 Glucose 101 POC Glucose Lactic Acid Calcium 7.6 L Total Bilirubin 1.0 Direct Bilirubin 0.5 H Neonat Total Bilirubin Not Reportable Neonat Direct Bilirubin Not Reportable Neonat Indirect Bili Not Reportable AST 30 ALT 26 Alkaline Phosphatase 111 Total Protein 6.2 L Albumin 3.1 L Urine Color YELLOW Urine Appearance CLEAR Urine pH 5.0 Ur Specific [place] 1.018 Urine Protein NEGATIVE Urine Glucose (UA) NEGATIVE Urine Ketones NEGATIVE Urine Blood SMALL H Urine Nitrite NEGATIVE Urine Bilirubin NEGATIVE Urine Urobilinogen 4.0 H Ur Leukocyte Esterase SMALL H Urine WBC (Auto) 12 Urine RBC (Auto) 2 Urine Bacteria (Auto) TRACE Squamous Epi Cells Auto <1 Urine Mucus (Auto) RARE Urine Ascorbic Acid NEGATIVE Chest X-Ray 06/03/18 05:41 IMPRESSION: 1. No evidence of acute intrathoracic disease. 2. Artifact projects over the right inferolateral hemithorax. 57-year-old male presents via EMS from the nursing facility with report of fever. Upon arrival patient is afebrile. He is not very cooperative with history. He was just seen here yesterday for oozing from the surgical site on his right shoulder. A compression bandage was placed and he was to follow-up with orthopedic surgery today. Patient is with a mild leukocytosis. His INR is supratherapeutic. CMP shows a potassium of 3.2. Patient refusing potassium supplementation. UA shows small leuk esterase and 12 WBCs but patient is asymptomatic so urine culture is pending. Patient did receive ceftriaxone IV, IV fluids. Before completion of his workup Dr. Marquis called down to the patient's nurse and stated that he would admit the patient onto his service. 06/03/18 15:41 - Vital Signs Vital signs: Temp Pulse Resp BP Pulse Ox 98.4 F 92 16 112/74 95 06/03/18 12:14 06/03/18 12:14 06/03/18 12:14 06/03/18 12:14 06/03/18 12:14 - Laboratory Result Diagrams: 06/03/18 06:40 06/03/18 07:43 Laboratory results interpreted by me: 06/03/18 06/03/18 06/03/18 06:40 06:40 07:43 WBC 11.6 H RBC 3.41 L Hgb 10.1 L Hct 29.0 L RDW 14.3 H Seg Neuts % (Manual) 82 H Band Neutrophils % 1 L Lymphocytes % (Manual) 4 L Monocytes % (Manual) 0 L Eosinophils % (Manual) 13 H Abs Neuts (Manual) 9.6 H Abs Monocytes (Manual) 0.0 L Absolute Eos (Manual) 1.5 H PT 44.6 H Sodium 133.0 L Potassium 3.2 L Chloride 94 L BUN 29 H Calcium 7.6 L Direct Bilirubin 0.5 H Total Protein 6.2 L Albumin 3.1 L Urine Blood Urine Urobilinogen Ur Leukocyte Esterase 06/03/18 08:22 WBC RBC Hgb Hct RDW Seg Neuts % (Manual) Band Neutrophils % Lymphocytes % (Manual) Monocytes % (Manual) Eosinophils % (Manual) Abs Neuts (Manual) Abs Monocytes (Manual) Absolute Eos (Manual) PT Sodium Potassium Chloride BUN Calcium Direct Bilirubin Total Protein Albumin Urine Blood SMALL H Urine Urobilinogen 4.0 H Ur Leukocyte Esterase SMALL H - Diagnostic Test Radiology reviewed: Image reviewed, Reports reviewed - EKG Interpretation by Me EKG shows normal: Sinus rhythm Rate: Normal Rhythm: NSR, PVC's When compared to previous EKG there are: No significant change Discharge - Discharge Clinical Impression: Tachycardia, Hypokalemia, Hypocalcemia, Hypoalbuminemia, Encounter for change or removal of surgical wound dressing, Supratherapeutic INR Right shoulder pain Qualifiers: Chronicity: unspecified Qualified Code(s): M25.511 - Pain in right shoulder Leukocytosis Qualifiers: Leukocytosis type: unspecified Qualified Code(s): D72.829 - Elevated white blood cell count, unspecified Condition: Good Disposition: ADMITTED INPATIENT Admitting Provider: Surgicalist - Dr Marquis Unit Admitted: Surgical Floor
--- NOTE | 2018-06-03 06:56 | RADIOLOGY REPORT (SQ) ---
EXAM DESCRIPTION: X-ray single view chest. CLINICAL HISTORY: 57 years Male, fever COMPARISON: None. TECHNIQUE: Single portable view of the chest performed on 06/03/2018 at 6:44 AM FINDINGS: The lungs are well expanded and are clear. There is no evidence of a pneumothorax. There is artifact projecting over the right inferolateral hemithorax. The cardiac silhouette is normal in size and configuration. The mediastinal contours are normal. No acute osseous abnormality is identified. There are postsurgical changes of the right shoulder and lower cervical spine. No focal soft tissue abnormalities are seen. Lines and tubes: None. IMPRESSION: 1. No evidence of acute intrathoracic disease. 2. Artifact projects over the right inferolateral hemithorax.
[2018-06-03 07:05] LABS: HEMOGLOBIN 10.1 g/dL (13.5-17.0); MEAN CORPUSCULAR HEMOGLOBIN 29.5 pg (27.0-33.4); MEAN CORPUSCULAR HGB CONC 34.6 g/dL (32.0-36.0); MEAN CORPUSCULAR VOLUME 85 fl (80-97); PLATELET COUNT 224 10^3/uL (150-450); RED BLOOD COUNT 3.41 10^6/uL (4.35-5.55); RED CELL DISTRIBUTION WIDTH 14.3 % (11.5-14.0); WHITE BLOOD COUNT 11.6 10^3/uL (4.0-10.5)
[2018-06-03 07:07] LABS: INTERNATIONAL RATION (INR) 4.48; PROTHROMBIN TIME 44.6 SEC (11.4-15.4)
[2018-06-03 07:23] LABS: ABSOLUTE LYMPHOCYTES# (MANUAL) 0.5 10^3/uL (0.5-4.7); ABSOLUTE NEUTROPHILS# (MANUAL) 9.6 10^3/uL (1.7-8.2); BAND NEUTROPHILS % (MANUAL) 1 % (3-5); BASOPHILS % (MANUAL) 0 % (0-2); EOSINOPHILS % (MANUAL) 13 % (0-6); LYMPHOCYTES % (MANUAL) 4 % (13-45); MONOCYTES % (MANUAL) 0 % (3-13); SEGMENTED NEUTROPHILS % (MAN) 82 % (42-78); TOTAL CELLS COUNTED 100
[2018-06-03 07:24] LABS: ANISOCYTOSIS SLIGHT; PLATELET CLUMPS PRESENT; PLATELET COMMENT ADEQUATE; PLATELET GIANT PRESENT; PLATELET LARGE PRESENT; TOXIC VACUOLATION PRESENT
[2018-06-03 08:16] LABS: VENOUS BLOOD BASE EXCESS 0.6 mmol/L; VENOUS BLOOD HCO3 25.2 mmol/L (20-32); VENOUS BLOOD PCO2 40.6 mmHg (35-63); VENOUS BLOOD PH 7.41 (7.30-7.42)
[2018-06-03 08:31] LABS: ALANINE AMINOTRANSFERASE 26 U/L (21-72); ALBUMIN 3.1 g/dL (3.5-5.0); ALKALINE PHOSPHATASE 111 U/L (38-126); ANION GAP 13 (5-19); ASPARTATE AMINO TRANSFERASE 30 U/L (17-59); BILIRUBIN,DIRECT 0.5 mg/dL (0.0-0.4); BLOOD UREA NITROGEN 29 mg/dL (7-20); CALCIUM 7.6 mg/dL (8.4-10.2); CARBON DIOXIDE 26 mmol/L (22-30); CHLORIDE 94 mmol/L (98-107); GLUCOSE 101 mg/dL (75-110); POTASSIUM 3.2 mmol/L (3.6-5.0); TOTAL PROTEIN 6.2 g/dL (6.3-8.2)
[2018-06-03 08:55] LABS: APPEARANCE,URINE CLEAR; BILIRUBIN,URINE NEGATIVE (NEGATIVE); COLOR,URINE YELLOW; GLUCOSE, URINE NEGATIVE (NEGATIVE); KETONES,URINE NEGATIVE (NEGATIVE); LEUKOCYTE ESTERASE,URINE SMALL (NEGATIVE); NITRITE,URINE NEGATIVE (NEGATIVE); PROTEIN,URINE NEGATIVE (NEGATIVE); URINE SPECIFIC GRAVITY 1.018
--- NOTE | 2018-06-03 10:40 | EKG REPORT ---
SEVERITY:- ABNORMAL ECG - SINUS RHYTHM MULTIPLE VENTRICULAR PREMATURE COMPLEXES BORDERLINE PROLONGED QT INTERVAL : Confirmed by: Shivani Keith MD 03-Jun-2018 10:39:31
[2018-06-03] MEDS ORDERED: OXYCODONE HCL IR 5 MG TABLET PO PRN ×2 (12:24→19:54)
[2018-06-03] MEDS ORDERED: ONDANSETRON 4 MG TAB.RAPDIS SL PRN (12:29)
[2018-06-03] MEDS ORDERED: ACETAMINOPHEN PO PRN (19:54)
[2018-06-03] MEDS ORDERED: LOPERAMIDE HCL 2 MG CAPSULE PO PRN (19:54)
[2018-06-03] MEDS ORDERED: MAG HYDROX/AL HYDROX/SIMETH SUSP 30 ML UDCUP PO PRN (19:54)
[2018-06-03] MEDS ORDERED: MAGNESIUM HYDROXIDE SUSP 30 ML UDCUP PO PRN (19:54)
[2018-06-03] MEDS ORDERED: GUAIFENESIN SYRP 200 MG/10 ML UDC PO PRN (19:54)
[2018-06-03] MEDS ORDERED: ACETAMINOPHEN 325 MG TABLET PO PRN (20:01)
[2018-06-03 21:37] LABS: INTERNATIONAL RATION (INR) 1.07
[2018-06-03 21:42] LABS: PROTHROMBIN TIME 14.5 SEC (11.4-15.4)
--- NOTE | 2018-06-04 00:46 | PDOC CONSULTATION ---
Consultation Consult Date: 06/04/18 Attending physician:: NORTH ARRIAGA Consult reason:: Increased INR History of Present Illness Admission Date/PCP: 06/03/18 09:13 Patient complains of: Increased INR History of Present Illness: GISSEL ALVA is a 57 year old male with hypertension, hyperlipidemia, hypothyroidism, Parkinson's disease presents to the ED with chief complaint of "sick". Patient was seen yesterday for right shoulder pain and oozing from the surgical site. Patient recently underwent shoulder surgery with Dr. Arriaga. At that time the provider did touch base with Dr. Arriaga and placed a compressive dressing onto the area and arranged follow-up for the patient today. Today he was sent from his intermediate facility for a reported temp of 103 . EMS reports upon their arrival patient had a temp of 98. Patient is a difficult informant to question. He denies headache, nausea, vomiting, sore throat, chest pain, cough, abdominal pain, diarrhea, difficulty urinating, painful urinating. Dr. Arriaga who is attending ask hospitalist to see the patient as per his INR came back at 4.48. Patient is currently comfortable laying in the bed, denies any pain, denies being on any anticoagulation including aspirin or Plavix. Past Medical History Cardiac Medical History: Reports: Hyperlipidema, Hypertension Denies: Atrial Fibrillation, Congestive Heart Failure, Coronary Artery Disease, Myocardial Infarction, Peripheral Vascular Disease, Pulmonary Embolism , Heart Murmur Pulmonary Medical History: Reports: Pneumonia, Sleep Apnea - should use one but doesn't have one currently Denies: Asthma, Bronchitis, Chronic Obstructive Pulmonary Disease (COPD), Respiratory Failure, Tuberculosis Neurological Medical History: Denies: Seizures Endocrine Medical History: Reports: Hypothyroidism Denies: Hyperthyroidism Renal/ Medical History: Denies: End Stage Renal Disease Malignancy Medical History: Denies: Lung Cancer GI Medical History: Denies: Cirrhosis, Gastroesophageal Reflux Disease Musculoskeltal Medical History: Denies: Arthritis, Fibromyalgia Psychiatric Medical History: Reports: Depression Denies: Bipolar Disorder, Dementia Hematology: Denies: Anemia, Bleeding Tendencies Past Surgical History Past Surgical History: Reports: Appendectomy, Orthopedic Surgery - Herniated disc to the neck and lumbar area repaired. Right shoulder replac, Other - Cataracts Denies: Cholecystectomy, Coronary Artery Bypass Graft, Gastric Bypass Surgery , Herniorrhaphy, Pacemaker, Tonsillectomy Social History Lives with: Prison Smoking Status: Former Smoker Frequency of Alcohol Use: None Hx Recreational Drug Use: No Drugs: None Hx Prescription Drug Abuse: No Family History Family History: CAD, Hyperlipidemia, Hypertension, Malignancy Parental Family History Reviewed: Yes - As above Children Family History Reviewed: NA Sibling(s) Family History Reviewed.: NA Medication/Allergy Home Medications: Acetaminophen [Tylenol Extra Strength 500 mg Tablet] 500 tab PO Q4HP PRN Amlodipine Besylate [Norvasc 5 mg Tablet] 5 mg PO QAM 06/03/18 Carbidopa/Levodopa [Sinemet 25-100 mg Tablet] 1 each PO MEALS 06/03/18 Guaifenesin [Robitussin Syrup 200 mg/10 ml Ud Cup] 200 mg PO Q6HP PRN 06/03/18 Hydrochlorothiazide [Hydrodiuril 12.5 mg Tablet] 12.5 mg PO QAM 06/03/18 Levothyroxine Sodium [Synthroid 0.1 mg Tablet] 0.1 mg PO Q6AM 06/03/18 Lisinopril [Prinivil 10 mg Tablet] 10 mg PO QAM 06/03/18 Loperamide HCl [Imodium 2 mg Capsule] 2 mg PO TIDP PRN 06/03/18 Mag Hydrox/Al Hydrox/Simeth [Maalox Plus Susp 30 Udcup] 30 ml PO DAILYP PRN Magnesium Hydroxide [Milk of Magnesia 30 ml Udcup] 30 ml PO DAILYP PRN 06/03/18 Menthol [Biofreeze] 1 applic TP BIDP PRN 06/03/18 Mupirocin [Bactroban 2% Ointment 22 gm] 1 applic TP TID 06/03/18 Oxycodone HCl [Oxy-Ir 5 mg Tablet] 5 mg PO Q6HP PRN 06/03/18 Tramadol HCl [Ultram 50 mg Tablet] 50 mg PO Q4HP PRN 06/03/18 Allergies/Adverse Reactions: Penicillins Allergy (Unknown, Verified 12/15/17 02:32) Anaphylaxis Review of Systems Review of Systems: As outlined in the HPI, others negative Physical Exam Vital Signs: Temp Pulse Resp BP Pulse Ox 98.7 F 105 H 20 110/68 94 06/03/18 23:27 06/03/18 23:27 06/03/18 23:27 06/03/18 23:27 06/03/18 23:27 Intake & Output 06/02/18 06/03/18 06/04/18 06:59 06:59 06:59 Intake Total 862 Balance 862 Weight 104.2 kg Additional comments: General appearance: Well-developed, obese, alert and cooperative, and appears to be in no acute distress Head: Normocephalic Eyes: PEERL, EOMI, vision is grossly intact. Ears: External auditory canal and tympanic membranes clear, hearing grossly intact. Nose: No nasal discharge. Throat: Oral cavity and pharynx normal. No inflammation, swelling, exudate or lesions. Neck: Neck supple, nontender without lymphadenopathy, masses or thyromegaly. Cardiac: Normal S1 and S2. No S3, S4 or murmurs. Rhythm is regular. Extremities are warm and well perfused. Capillary refill is less than 2 seconds. No carotid bruits. Lungs: Clear to auscultation and percussion without rales, rhonchi, wheezing or diminished breath sounds. Not using accessory muscles. Abdomen: Positive bowel sounds. Soft. Nondistended, nontender. No guarding or rebound. No masses. Neurological: Cranial nerves II through XII grossly intact. Right upper extremity with a sling Skin: Skin normal color, texture and turgor with no lesions or eruptions, warm and dry. Psychiatric: The mental examination difficult to evaluate as the patient hardly answer any question. Flat affect. Results Impressions: Chest X-Ray 06/03/18 05:41 IMPRESSION: 1. No evidence of acute intrathoracic disease. 2. Artifact projects over the right inferolateral hemithorax. Assessment & Plan - Diagnosis (1) Supratherapeutic INR Is this a current diagnosis for this admission?: Yes Plan: When patient arrived to the emergency department laboratory was done and INR came back at 4.48, patient is not on any anticoagulation or antiplatelets therapy. I repeated the INR and came back at 1.07. At this point is back to normal, no active intervention. We will sign off. (2) Right shoulder pain Qualifiers: Chronicity: unspecified Qualified Code(s): M25.511 - Pain in right shoulder Is this a current diagnosis for this admission?: Yes Plan: In the setting of recurrent dislocation of right shoulder, as per orthopedic Dr. Arriaga. - Time Time Spent: 30 to 50 Minutes
[2018-06-04] MEDS ORDERED: CEFAZOLIN 2 GM/D5W RTU 2 GM/50 ML RTUPB IV PRN (05:00)
[2018-06-04] MEDS: LEVOTHYROXINE SODIUM 0.1 MG TABLET PO SCH (05:23)
[2018-06-04 05:29] LABS: INTERNATIONAL RATION (INR) 1.18; PROTHROMBIN TIME 15.6 SEC (11.4-15.4)
--- NOTE | 2018-06-04 07:19 | PDOC H&P ---
History of Present Illness Admission Date/PCP: 06/03/18 09:13 History of Present Illness: GISSEL ALVA is a 57 year old male 57-year-old white male status post right revision shoulder arthroplasty with persistent bloody drainage from the inferior aspect of the wound. Past Medical History Cardiac Medical History: Reports: Hyperlipidema, Hypertension Denies: Atrial Fibrillation, Congestive Heart Failure, Coronary Artery Disease, Myocardial Infarction, Peripheral Vascular Disease, Pulmonary Embolism , Heart Murmur Pulmonary Medical History: Reports: Pneumonia, Sleep Apnea - should use one but doesn't have one currently Denies: Asthma, Bronchitis, Chronic Obstructive Pulmonary Disease (COPD), Respiratory Failure, Tuberculosis Neurological Medical History: Denies: Seizures Endocrine Medical History: Reports: Hypothyroidism Denies: Hyperthyroidism Renal/ Medical History: Denies: End Stage Renal Disease Malignancy Medical History: Denies: Lung Cancer GI Medical History: Denies: Cirrhosis, Gastroesophageal Reflux Disease Musculoskeltal Medical History: Denies: Arthritis, Fibromyalgia Psychiatric Medical History: Reports: Depression Denies: Bipolar Disorder, Dementia Hematology: Denies: Anemia, Bleeding Tendencies Past Surgical History Past Surgical History: Reports: Appendectomy, Orthopedic Surgery - Herniated disc to the neck and lumbar area repaired. Right shoulder replac, Other - Cataracts Denies: Cholecystectomy, Coronary Artery Bypass Graft, Gastric Bypass Surgery , Herniorrhaphy, Pacemaker, Tonsillectomy Social History Information Source: Patient, [facility] Agee[facility] Lives with: Retirement Smoking Status: Former Smoker Frequency of Alcohol Use: None Hx Recreational Drug Use: No Drugs: None Hx Prescription Drug Abuse: No Family History Family History: CAD, Hyperlipidemia, Hypertension, Malignancy Parental Family History Reviewed: No Children Family History Reviewed: No Sibling(s) Family History Reviewed.: No Medication/Allergy Home Medications: Acetaminophen [Tylenol Extra Strength 500 mg Tablet] 500 tab PO Q4HP PRN Amlodipine Besylate [Norvasc 5 mg Tablet] 5 mg PO QAM 06/03/18 Carbidopa/Levodopa [Sinemet 25-100 mg Tablet] 1 each PO MEALS 06/03/18 Guaifenesin [Robitussin Syrup 200 mg/10 ml Ud Cup] 200 mg PO Q6HP PRN 06/03/18 Hydrochlorothiazide [Hydrodiuril 12.5 mg Tablet] 12.5 mg PO QAM 06/03/18 Levothyroxine Sodium [Synthroid 0.1 mg Tablet] 0.1 mg PO Q6AM 06/03/18 Lisinopril [Prinivil 10 mg Tablet] 10 mg PO QAM 06/03/18 Loperamide HCl [Imodium 2 mg Capsule] 2 mg PO TIDP PRN 06/03/18 Mag Hydrox/Al Hydrox/Simeth [Maalox Plus Susp 30 Udcup] 30 ml PO DAILYP PRN Magnesium Hydroxide [Milk of Magnesia 30 ml Udcup] 30 ml PO DAILYP PRN 06/03/18 Menthol [Biofreeze] 1 applic TP BIDP PRN 06/03/18 Mupirocin [Bactroban 2% Ointment 22 gm] 1 applic TP TID 06/03/18 Oxycodone HCl [Oxy-Ir 5 mg Tablet] 5 mg PO Q6HP PRN 06/03/18 Tramadol HCl [Ultram 50 mg Tablet] 50 mg PO Q4HP PRN 06/03/18 Allergies/Adverse Reactions: Penicillins Allergy (Unknown, Verified 12/15/17 02:32) Anaphylaxis Review of Systems All systems: as per H Physical Exam Vital Signs: Temp Pulse Resp BP Pulse Ox 37.1 C 105 H 20 110/68 94 06/03/18 23:27 06/03/18 23:27 06/03/18 23:27 06/03/18 23:27 06/03/18 23:27 Intake & Output 06/03/18 06/04/18 06/05/18 06:59 06:59 06:59 Intake Total 862 Balance 862 Weight 104.2 kg General appearance: PRESENT: no acute distress Head exam: PRESENT: normocephalic Respiratory exam: PRESENT: unlabored Cardiovascular exam: PRESENT: RRR GI/Abdominal exam: PRESENT: soft Rectal exam: PRESENT: deferred Extremities exam: PRESENT: other - Right shoulder dressing is dry at this point. Compression dressing in place. Distal neurovascular examination is intact. Results Laboratory Results: 06/04/18 04:45 06/04/18 04:45 Potassium 3.5 L Impressions: Chest X-Ray 06/03/18 05:41 IMPRESSION: 1. No evidence of acute intrathoracic disease. 2. Artifact projects over the right inferolateral hemithorax. Status: Imported from PACS Assessment & Plan - Diagnosis (1) Right shoulder pain Qualifiers: Chronicity: unspecified Qualified Code(s): M25.511 - Pain in right shoulder Is this a current diagnosis for this admission?: Yes (2) Recurrent dislocation, right shoulder Is this a current diagnosis for this admission?: Yes Plan: Plan for irrigation debridement right shoulder wound - Time Time Spent: 50 to 70 Minutes Anticipated discharge: Other Within: Other
[2018-06-04] MEDS ORDERED: BACITRACIN INJ 50,000 UNIT VIAL ONE (07:42)
[2018-06-04] MEDS ORDERED: RINGERS SOLUTION,LACTATED 1,000 ML IV PRN (07:54)
[2018-06-04] MEDS ORDERED: ONDANSETRON HCL INJ/PF 4 MG/2 ML SDV ONE (09:14)
[2018-06-04] MEDS ORDERED: MIDAZOLAM 2 MG/2 ML INJ ONE (09:14)
[2018-06-04] MEDS ORDERED: PROPOFOL INJ 200 MG/20 ML VIAL IV ONE ×2 (09:15→10:03)
[2018-06-04] MEDS ORDERED: HYDROMORPHONE HCL INJ/PF 2 MG/ML AMPULE ONE ×2 (09:15→11:49)
[2018-06-04] MEDS ORDERED: CEFAZOLIN INJ 1 GM VIAL ONE (09:24)
[2018-06-04] MEDS ORDERED: MEPERIDINE HCL/PF INJ 25 MG/1 ML DISP.SYRIN IV PRN (09:50)
[2018-06-04] MEDS ORDERED: FENTANYL CITRATE INJ/PF 100 MCG/2 ML AMPUL IV PRN ×3 (09:50)
[2018-06-04] MEDS ORDERED: DIPHENHYDRAMINE HCL 50 MG/ML VIAL IV PRN (09:50)
[2018-06-04] MEDS ORDERED: TRANEXAMIC ACID INJ/PF 1,000 MG/10 ML SDV IV ONE ×2 (09:57→13:00)
[2018-06-04] MEDS ORDERED: THROMBIN (BOVINE) TOPICAL 5000 UNIT VIAL ONE ×2 (10:18→10:19)
--- NOTE | 2018-06-04 10:49 | Operative Report ---
Operative Report DATE OF SURGERY: 06/04/18 PREOPERATIVE DIAGNOSIS: Draining wound status post right reverse shoulder arthroplasty OPERATION: Irrigation debridement repeat closure SURGEON: NORTH ARRIAGA ANESTHESIA: GA TISSUE REMOVED OR ALTERED: Cultures to microbiology ESTIMATED BLOOD LOSS: 100 PROCEDURE: The existing unique were removed and the wound is open under sterile conditions. The wound is irrigated with 3 L normal saline containing bacitracin and pulse lavage. The wound is then debrided. There does appear to be some active oozing red blood at the anterior inferior aspect of the humerus. This is stopped with electrocautery. The wound is then irrigated again with normal saline containing bacitracin and 3 L via pulse lavage. The skin edges were then freshened with a 15 blade. Thrombin and Gelfoam were then placed into the anterior inferior aspect of the humerus in attempt to stop any future blood oozing from this area. The wound is then closed in layers with interrupted PDS. A sterile compressive dressing is applied.
[2018-06-04] MEDS: FENTANYL CITRATE INJ/PF 100 MCG/2 ML AMPUL ONE ×3 (11:12→11:30)
[2018-06-04] MEDS ORDERED: ACETAMINOPHEN 1,000 MG/100 ML RTUPB IV ONE (11:45)
[2018-06-04] MEDS: TRAMADOL HCL 50 MG TABLET PO PRN ×2 (14:54→23:51)
[2018-06-04] MEDS: CARBIDOPA/LEVODOPA 25-100 MG TABLET PO SCH ×2 (16:28→18:02)
[2018-06-04] MEDS: HYDROCHLOROTHIAZIDE 12.5 MG TABLET PO SCH (16:29)
[2018-06-04] MEDS: AMLODIPINE BESYLATE 5 MG TABLET PO SCH (16:29)
[2018-06-04] MEDS: LISINOPRIL 10 MG TABLET PO SCH (16:29)
[2018-06-04] MEDS ORDERED: CEFTRIAXONE SODIUM 2,000 MG in DEXTROSE 5%-WATER 100 ML IV SCH (18:00)
[2018-06-05] MEDS: LEVOTHYROXINE SODIUM 0.1 MG TABLET PO SCH (05:09)
[2018-06-05 06:15] LABS: INTERNATIONAL RATION (INR) 1.16; PROTHROMBIN TIME 15.4 SEC (11.4-15.4)
[2018-06-05 06:16] LABS: PARTIAL THROMBOPLASTIN TIME 42.2 SEC (23.5-35.8)
[2018-06-05 06:22] LABS: HEMATOCRIT 24.9 % (37.9-51.0); HEMOGLOBIN 8.5 g/dL (13.5-17.0); MEAN CORPUSCULAR HEMOGLOBIN 29.5 pg (27.0-33.4); MEAN CORPUSCULAR HGB CONC 34.3 g/dL (32.0-36.0); MEAN CORPUSCULAR VOLUME 86 fl (80-97); PLATELET COUNT 195 10^3/uL (150-450); RED BLOOD COUNT 2.89 10^6/uL (4.35-5.55); RED CELL DISTRIBUTION WIDTH 14.4 % (11.5-14.0); WHITE BLOOD COUNT 11.5 10^3/uL (4.0-10.5)
[2018-06-05 06:32] LABS: ANION GAP 15 (5-19); BLOOD UREA NITROGEN 27 mg/dL (7-20); CARBON DIOXIDE 26 mmol/L (22-30); CHLORIDE 95 mmol/L (98-107); GLUCOSE 89 mg/dL (75-110); POTASSIUM 3.5 mmol/L (3.6-5.0); SODIUM 135.6 mmol/L (137-145)
[2018-06-05 06:46] LABS: CALCIUM 6.3 mg/dL (8.4-10.2)
[2018-06-05 06:59] LABS: C-REACTIVE PROTEIN 319.7 mg/L (<10.0)
--- NOTE | 2018-06-05 07:23 | PDOC DISCHARGE SUMMARY ---
General - Admit/Disc Date/PCP Admission Date/Primary Care Provider: 06/03/18 09:13 Discharge Date: 06/05/18 - Discharge Diagnosis (1) Right shoulder pain Is this a current diagnosis for this admission?: Yes (2) Recurrent dislocation, right shoulder Is this a current diagnosis for this admission?: Yes - Additional Information Resuscitation Status: Full Code Discharge Diet: As Tolerated, Regular Discharge Activity: Balance Activity w/Rest, No tub bath Home Medications: Acetaminophen [Tylenol Extra Strength 500 mg Tablet] 500 tab PO Q4HP PRN Amlodipine Besylate [Norvasc 5 mg Tablet] 5 mg PO QAM 06/03/18 Carbidopa/Levodopa [Sinemet 25-100 mg Tablet] 1 each PO MEALS 06/03/18 Guaifenesin [Robitussin Syrup 200 mg/10 ml Ud Cup] 200 mg PO Q6HP PRN 06/03/18 Hydrochlorothiazide [Hydrodiuril 12.5 mg Tablet] 12.5 mg PO QAM 06/03/18 Levothyroxine Sodium [Synthroid 0.1 mg Tablet] 0.1 mg PO Q6AM 06/03/18 Lisinopril [Prinivil 10 mg Tablet] 10 mg PO QAM 06/03/18 Loperamide HCl [Imodium 2 mg Capsule] 2 mg PO TIDP PRN 06/03/18 Mag Hydrox/Al Hydrox/Simeth [Maalox Plus Susp 30 Udcup] 30 ml PO DAILYP PRN Magnesium Hydroxide [Milk of Magnesia 30 ml Udcup] 30 ml PO DAILYP PRN 06/03/18 Menthol [Biofreeze] 1 applic TP BIDP PRN 06/03/18 Mupirocin [Bactroban 2% Ointment 22 gm] 1 applic TP TID 06/03/18 Oxycodone HCl [Oxy-Ir 5 mg Tablet] 5 mg PO Q6HP PRN 06/03/18 Tramadol HCl [Ultram 50 mg Tablet] 50 mg PO Q4HP PRN 06/03/18 Ceftriaxone Sodium [Rocephin Inj 2000 mg Vial] 2,000 mg IV QPM 7 Days vial 08/22 Tramadol HCl [Ultram 50 mg Tablet] 50 mg PO Q6HP PRN tablet 06/05/18 History of Present Illness History of Present Illness: Patient is a 57-year-old white male with Parkinson's disease who underwent a right shoulder arthroplasty with postoperative instability. Approximately 2 weeks ago he underwent a conversion to a reverse shoulder arthroplasty and presented to emergency room with ongoing wound drainage and a reported INR of 4.5. He is admitted to the orthopedic service. Repeat coagulation studies indicated an INR of 1.07. Hospital Course Hospital Course: The patient was taken to the operating room and undergoes an open irrigation debridement of the shoulder with repeat closure. Postoperatively pain remains well controlled and the dressing over the right shoulder incision remains clean dry and intact. Physical Exam Vital Signs: Temp Pulse Resp BP Pulse Ox 36.9 C 88 14 110/57 L 98 06/04/18 19:55 06/04/18 19:55 06/04/18 19:55 06/04/18 19:55 06/04/18 19:55 Intake & Output 06/04/18 06/05/18 06/06/18 06:59 06:59 06:59 Intake Total 862 2437 Output Total 100 Balance 862 2337 Weight 104.2 kg 106.8 kg Physical Exam: Disheveled appearing middle-aged white male lying in a hospital bed. Largely grunt answers versus 1 word responses. General appearance: PRESENT: no acute distress, well-nourished Head exam: PRESENT: normocephalic Respiratory exam: PRESENT: unlabored Cardiovascular exam: PRESENT: RRR Pulses: PRESENT: normal radial pulses Vascular exam: PRESENT: normal capillary refill GI/Abdominal exam: PRESENT: soft Rectal exam: PRESENT: deferred Extremities exam: PRESENT: other - Right shoulder immobilizer in place. Right shoulder dressing clean dry and intact Neurological exam: PRESENT: alert, awake, oriented to person, oriented to place , oriented to time, oriented to situation Skin exam: PRESENT: dry, intact, warm. ABSENT: cyanosis, rash Results Laboratory Results: 06/05/18 04:40 06/05/18 04:40 06/05/18 06/05/18 04:40 04:40 WBC 11.5 H RBC 2.89 L Hgb 8.5 L Hct 24.9 L MCV 86 MCH 29.5 MCHC 34.3 RDW 14.4 H Plt Count 195 Sodium 135.6 L Potassium 3.5 L Chloride 95 L Carbon Dioxide 26 Anion Gap 15 BUN 27 H Creatinine 1.10 Est GFR ( Amer) > 60 Est GFR (Non-Af Amer) > 60 Glucose 89 Calcium 6.3 L* C-Reactive Protein 319.7 H Impressions: Chest X-Ray 06/03/18 05:41 IMPRESSION: 1. No evidence of acute intrathoracic disease. 2. Artifact projects over the right inferolateral hemithorax. Status: Imported from PACS Qualifiers - * PATIENT BEING DISCHARGED WITH ANY OF THE FOLLOWING DIAGNOSIS: No VTE patient discharged on overlapping Therapy?: No Reason(s) for not prescribing Overlap Therapy:: Not indicated Plan Discharge Plan: Patient to be discharged from [facility] facility. Discharge on Rocephin empirically pending final interpretation of intraoperative culture and sensitivities. At this point Gram stain and cultures are pending. ESR and CRP are also pending at this time. Follow-up with Dr. Marquis and [facility] for surgery in 1 week. Time Spent: Less than 30 Minutes
[2018-06-05 07:35] LABS: ERYTHROCYTE SEDIMENTATION RATE 118 mm/hr (0-20)
[2018-06-05 09:39] VITALS: BP 129/71
[2018-06-05] MEDS: LISINOPRIL 10 MG TABLET PO SCH (09:45)
[2018-06-05] MEDS: AMLODIPINE BESYLATE 5 MG TABLET PO SCH (09:45)
[2018-06-05] MEDS: HYDROCHLOROTHIAZIDE 12.5 MG TABLET PO SCH (09:45)
[2018-06-05] MEDS: CARBIDOPA/LEVODOPA 25-100 MG TABLET PO SCH (10:15)
[2018-06-05] MEDS: TRAMADOL HCL 50 MG TABLET PO PRN (11:15)
== END 2018-06-05 13:15 | DRG 563 ==
LOC: ER 05:31 → EH 09:13 → 4N 10:57
PROVIDERS: ADMIT Surgery; ATTEND Orthopaedic Surgery
PROC: 0JDD3ZZ Extraction of Right Upper Arm Subcutaneous Tissue and Fascia, Percutaneous Approach (ICD-10-PCS; principal; 2018-06-04 10:30)
DX: M24.411 Recurrent dislocation, right shoulder (principal); G20 Parkinson's disease; I10 Essential (primary) hypertension; E78.00 Pure hypercholesterolemia, unspecified; E03.9 Hypothyroidism, unspecified; G47.30 Sleep apnea, unspecified; F32.9 Major depressive disorder, single episode, unspecified; E66.9 Obesity, unspecified; E87.6 Hypokalemia; Z96.611 Presence of right artificial shoulder joint; Z88.0 Allergy status to penicillin; Z79.899 Other long term (current) drug therapy; Z98.42 Cataract extraction status, left eye; Z98.41 Cataract extraction status, right eye; Z87.891 Personal history of nicotine dependence; Z82.49 Family history of ischemic heart disease and other diseases of the circulatory system; Z80.9 Family history of malignant neoplasm, unspecified
CPT/HCPCS: 300; 36415; 71045; 80048; 80053; 81001; 82803; 82962; 83605; 84132; 85025; 85027; 85610; 85652; 85730; 86140; 87070; 87075; 87077; 87086; 87186; 87205; 93005; 93010; 99285; J0690; J0696; J1170; J2250; J2405; J2704; J3010; J3490; J7120; L3650

== ENCOUNTER 2018-09-22 11:35 | Inpatient (IN) | payer MEDICARE, MEDICAID ==
[2018-09-22] MEDS ORDERED: NORMAL SALINE 1000 ML 1,000 ML IV ONE (12:43)
[2018-09-22] MEDS ORDERED: VANCOMYCIN HCL INJ 1000 MG VIAL IV ONE ×2 (12:43→18:15)
--- NOTE | 2018-09-22 12:43 | ER Document Report ---
ED Medical Screen (RME) - General Chief Complaint: Post Surgical Pain Stated Complaint: RIGHT SHOULDER PAIN Time Seen by Provider: 09/22/18 12:29 Primary Care Provider: NISREEN MORENO DO [Primary Care Provider] - Follow up as needed Notes: Patient is a 57-year-old male with multiple chronic medical conditions that presents to the emergency department for chief complaint of right shoulder pain. Patient had what sounds like a reverse shoulder replacement on the right, said he has had issues with it in the past, and had to be drained, and has been having worse pain over the past few weeks, noticed redness and swelling, he is currently living at [facility]. ROS: Other than noted above, the 12 point review of systems was reviewed with the patient and were negative, all pertinent findings are included in the HPI. PHYSICAL EXAMINATION: Vital signs reviewed. GENERAL: Well-appearing, well-nourished and in no acute distress. HEAD: Atraumatic, normocephalic. EYES: Pupils equal round extraocular movements intact, conjunctiva are normal. ENT: Nares patent NECK: Normal range of motion CV: Heart rate tachycardic, regular rhythm LUNGS: No respiratory distress Musculoskeletal: Patient's right shoulder has anterior incisional pain, is erythematous, tender to palpate, warm to touch, and appears to be possibly abscess NEUROLOGICAL: Normal speech PSYCH: Normal mood, normal affect. MDM: Patient seen and examined for rapid initial assessment. Vital signs reviewed. A comprehensive ED assessment and evaluation of the patient, analysis of test results and completion of the medical decision making process will be conducted by additional ED providers. *Note is created using voice recognition software and may contain spelling, syntax or grammatical errors. TRAVEL OUTSIDE OF THE [place] IN LAST 30 DAYS: No - Related Data Allergies/Adverse Reactions: Penicillins Allergy (Unknown, Verified 09/22/18 11:36) Anaphylaxis Past Medical History - Past Medical History Cardiac Medical History: Reports: Hx Hypercholesterolemia, Hx Hypertension Denies: Hx Atrial Fibrillation, Hx Congestive Heart Failure, Hx Coronary Artery Disease, Hx Heart Attack, Hx Peripheral Vascular Disease, Hx Pulmonary Embolism, Hx Heart Murmur Pulmonary Medical History: Reports: Hx Pneumonia, Hx Sleep Apnea - should use one but doesn't have one currently Denies: Hx Asthma, Hx Bronchitis, Hx COPD, Hx Respiratory Failure, Hx Tuberculosis Neurological Medical History: Denies: Hx Cerebrovascular Accident, Hx Seizures Endocrine Medical History: Reports: Hx Hypothyroidism. Denies: Hx Graves' Disease, Hx Hyperthyroidism Renal/ Medical History: Denies: Hx Benign Prostatic Hyperplasia, Hx End Stage Renal Disease, Hx Kidney Stones, Hx Peritoneal Dialysis Malignancy Medical History: Denies Hx Lung Cancer GI Medical History: Denies: Hx Cirrhosis, Hx Gastroesophageal Reflux Disease, Hx Ulcer Musculoskeltal Medical History: Denies Hx Arthritis, Denies Hx Fibromyalgia, Denies Hx Multiple Sclerosis, Denies Hx Muscular Dystrophy, Reports Hx Musculoskeletal Deformity, Reports Hx Musculoskeletal Trauma Psychiatric Medical History: Reports: Hx Depression Denies: Hx Bipolar Disorder, Hx Dementia, Hx Schizophrenia Traumatic Medical History: Reports: Hx Fractures Past Surgical History: Reports: Hx Appendectomy, Hx Orthopedic Surgery - Herniated disc to the neck and lumbar area repaired. Right shoulder replac, Other - Cataracts. Denies: Hx Bowel Surgery, Hx Cholecystectomy, Hx Coronary Artery Bypass Graft, Hx Gastric Bypass Surgery, Hx Herniorrhaphy, Hx Pacemaker, Hx Tonsillectomy - Immunizations Immunizations up to date: Yes Hx Diphtheria, Pertussis, Tetanus Vaccination: Yes History of Influenza Vaccine for 05/2017 - 10/2017 Season: Yes Influenza Administration Date for 05/2017 - 10/2017 Season: 05/05/17 Physical Exam - Vital signs Vitals: Temp Pulse Resp BP Pulse Ox 97.9 F 108 H 16 129/52 H 94 09/22/18 11:41 09/22/18 11:41 09/22/18 11:41 09/22/18 11:41 09/22/18 11:41 Course - Vital Signs Vital signs: Temp Pulse Resp BP Pulse Ox 97.9 F 108 H 16 129/52 H 94 09/22/18 11:41 09/22/18 11:41 09/22/18 11:41 09/22/18 11:41 09/22/18 11:41 Doctor's Discharge - Discharge Referrals: NISREEN MORENO DO [Primary Care Provider] - Follow up as needed
[2018-09-22] MEDS ORDERED: MORPHINE SULFATE 10 MG/ML INJ IV ONE (12:45)
[2018-09-22] MEDS ORDERED: ONDANSETRON HCL INJ/PF 4 MG/2 ML SDV IV ONE (12:45)
--- NOTE | 2018-09-22 13:19 | RADIOLOGY REPORT (SQ) ---
EXAM DESCRIPTION: SHOULDER RIGHT 2 OR MORE VIEWS COMPLETED DATE/TIME: 09/22/2018 1:11 pm REASON FOR STUDY: right shoulder pain COMPARISON: None. NUMBER OF VIEWS: Three views. TECHNIQUE: Internal rotation, external rotation, and Y view images acquired of the right shoulder. LIMITATIONS: None. FINDINGS: MINERALIZATION: Normal. BONES: Right shoulder arthroplasty in good position. No acute finding. JOINTS: No dislocation. VISUALIZED LUNGS AND RIBS: No pneumothorax. No rib fracture. SOFT TISSUES: No radiopaque foreign body. OTHER: No other significant finding. IMPRESSION: NEGATIVE STUDY OF THE RIGHT SHOULDER. NO RADIOGRAPHIC EVIDENCE OF ACUTE INJURY. TECHNICAL DOCUMENTATION: JOB ID: [id number] [employer]- All Rights Reserved Reading location - IP/workstation name: [email or web address]
[2018-09-22 14:03] LABS: VENOUS BLOOD BASE EXCESS 2.1 mmol/L; VENOUS BLOOD PCO2 59.2 mmHg (35-63); VENOUS BLOOD PH 7.32 (7.30-7.42)
[2018-09-22 14:05] LABS: ABSOLUTE EOSINOPHILS # (AUTO) 0.4 10^3/uL (0.0-0.6); ABSOLUTE LYMPHOCYTES (AUTO) 1.4 10^3/uL (0.5-4.7); ABSOLUTE MONOCYTES (AUTO) 0.6 10^3/uL (0.1-1.4); ABSOLUTE NEUT (AUTO) 5.1 10^3/uL (1.7-8.2); BASOPHILS % (AUTO) 0.2 % (0-2); EOSINOPHILS % (AUTO) 4.9 % (0-6); HEMATOCRIT 37.3 % (37.9-51.0); HEMOGLOBIN 12.5 g/dL (13.5-17.0); LYMPHOCYTES % (AUTO) 19.1 % (13-45); MEAN CORPUSCULAR HEMOGLOBIN 28.5 pg (27.0-33.4); MEAN CORPUSCULAR HGB CONC 33.5 g/dL (32.0-36.0); MEAN CORPUSCULAR VOLUME 85 fl (80-97); MONOCYTES % (AUTO) 8.3 % (3-13); PLATELET COUNT 278 10^3/uL (150-450); RED BLOOD COUNT 4.39 10^6/uL (4.35-5.55); SEGMENTED NEUTROPHILS % (AUTO) 67.5 % (42-78); TOTAL CELLS COUNTED % (AUTO) 100 %; WHITE BLOOD COUNT 7.6 10^3/uL (4.0-10.5)
[2018-09-22 14:24] LABS: ALANINE AMINOTRANSFERASE 15 U/L (21-72); ALBUMIN 4.2 g/dL (3.5-5.0); ALKALINE PHOSPHATASE 94 U/L (38-126); ANION GAP 10 (5-19); ASPARTATE AMINO TRANSFERASE 16 U/L (17-59); BILIRUBIN,DIRECT 0.2 mg/dL (0.0-0.4); BILIRUBIN,TOTAL 0.4 mg/dL (0.2-1.3); BLOOD UREA NITROGEN 12 mg/dL (7-20); C-REACTIVE PROTEIN 76.9 mg/L (<10.0); CARBON DIOXIDE 29 mmol/L (22-30); CHLORIDE 104 mmol/L (98-107); GLUCOSE 98 mg/dL (75-110); POTASSIUM 4.2 mmol/L (3.6-5.0); SODIUM 142.8 mmol/L (137-145); TOTAL PROTEIN 7.4 g/dL (6.3-8.2)
[2018-09-22 14:46] LABS: ERYTHROCYTE SEDIMENTATION RATE 90 mm/hr (0-20)
[2018-09-22] MEDS ORDERED: HYDROMORPHONE HCL INJ/PF 2 MG/ML AMPULE IV ONE ×2 (15:08→19:11)
--- NOTE | 2018-09-22 17:12 | ER Document Report ---
Addendum entered and electronically signed by RHODA LINK FNP 09/22/18 23:41: Course - Vital Signs Vital signs: Temp Pulse Resp BP Pulse Ox 98.1 F 61 20 159/88 H 96 09/22/18 23:25 09/22/18 23:25 09/22/18 23:25 09/22/18 23:25 09/22/18 23:25 - Laboratory Result Diagrams: 09/22/18 13:38 09/22/18 13:38 Laboratory results interpreted by me: 09/22/18 09/22/18 13:38 13:38 Hgb 12.5 L Hct 37.3 L RDW 17.0 H ESR 90 H AST 16 L ALT 15 L C-Reactive Protein 76.9 H - EKG Interpretation by Me Additional EKG results interpreted by me: Sinus rhythm. Rate 96. OR 164; QRS 94; QT 368; QTC 465. No ST elevations or depressions. There is some artifact on his 12-lead due to the patient having Parkinson's. Original Note: ED General - General Chief Complaint: Post Surgical Pain Stated Complaint: RIGHT SHOULDER PAIN Time Seen by Provider: 09/22/18 12:29 Notes: Is a 57-year-old male who presents emergency department with a chief complaint of right shoulder pain. He has a history of having shoulder surgery in the past. With multiple infections to the area. He has noticed that the area is red, warm, swollen, and has noticed the area is raised. [facility] He denies any fever, shortness of breath, abdominal pain, or chest pain. He has a history of Parkinson's disease and multiple shoulder dislocations. TRAVEL OUTSIDE OF THE [place] IN LAST 30 DAYS: No - Related Data Allergies/Adverse Reactions: Penicillins Allergy (Unknown, Verified 09/22/18 11:36) Anaphylaxis Past Medical History - Social History Smoking Status: Unknown if Ever Smoked Family History: CAD, Hyperlipidemia, Hypertension, Malignancy Patient has suicidal ideation: No Patient has homicidal ideation: No - Past Medical History Cardiac Medical History: Reports: Hx Hypercholesterolemia, Hx Hypertension Denies: Hx Atrial Fibrillation, Hx Congestive Heart Failure, Hx Coronary Artery Disease, Hx Heart Attack, Hx Peripheral Vascular Disease, Hx Pulmonary Embolism, Hx Heart Murmur Pulmonary Medical History: Reports: Hx Pneumonia, Hx Sleep Apnea - should use one but doesn't have one currently Denies: Hx Asthma, Hx Bronchitis, Hx COPD, Hx Respiratory Failure, Hx Tuberculosis Neurological Medical History: Denies: Hx Cerebrovascular Accident, Hx Seizures Endocrine Medical History: Reports: Hx Hypothyroidism. Denies: Hx Graves' Disease, Hx Hyperthyroidism Renal/ Medical History: Denies: Hx Benign Prostatic Hyperplasia, Hx End Stage Renal Disease, Hx Kidney Stones, Hx Peritoneal Dialysis Malignancy Medical History: Denies Hx Lung Cancer GI Medical History: Denies: Hx Cirrhosis, Hx Gastroesophageal Reflux Disease, Hx Ulcer Musculoskeletal Medical History: Denies Hx Arthritis, Denies Hx Fibromyalgia, Denies Hx Multiple Sclerosis, Denies Hx Muscular Dystrophy, Reports Hx Musculoskeletal Deformity, Reports Hx Musculoskeletal Trauma Psychiatric Medical History: Reports: Hx Depression Denies: Hx Bipolar Disorder, Hx Dementia, Hx Schizophrenia Traumatic Medical History: Reports: Hx Fractures Past Surgical History: Reports: Hx Appendectomy, Hx Orthopedic Surgery - Herniated disc to the neck and lumbar area repaired. Right shoulder replac, Other - Cataracts. Denies: Hx Bowel Surgery, Hx Cholecystectomy, Hx Coronary Artery Bypass Graft, Hx Gastric Bypass Surgery, Hx Herniorrhaphy, Hx Pacemaker, Hx Tonsillectomy - Immunizations Immunizations up to date: Yes Hx Diphtheria, Pertussis, Tetanus Vaccination: Yes Review of Systems - Review of Systems Notes: REVIEW OF SYSTEMS: CONSTITUTIONAL : Denies recent illness. Denies recent unintentional weight loss. Denies fever, chills, or sweats. EENT: Denies eye, ear, throat, or mouth pain, discharge, or symptoms. Denies nasal or sinus congestion. CARDIOVASCULAR: Denies chest pain. RESPIRATORY: Denies shortness of breath, cough, congestion, difficulty breathing , or wheezing. GASTROINTESTINAL: Denies nausea, vomiting, and diarrhea. Denies abdominal pain. Denies constipation. GENITOURINARY: Denies difficulty urinating, burning, blood in urine, urgency or frequency. MUSCULOSKELETAL: See HPI SKIN: See HPI HEMATOLOGIC : Denies easy bruising or bleeding. LYMPHATIC: Denies swollen, painful, enlarged glands. NEUROLOGICAL: Denies no numbness or tingling denies weakness. Denies headache. Denies altered mental status. Denies alteration in speech. PSYCHIATRIC: Denies stress, anxiety, alteration in sleep patterns, or depression. All other systems reviewed and negative. Physical Exam - Vital signs Vitals: Temp Pulse Resp BP Pulse Ox 97.9 F 108 H 16 129/52 H 94 02/18/19 11:41 09/22/18 11:41 09/22/18 11:41 09/22/18 11:41 09/22/18 11:41 - Notes Notes: PHYSICAL EXAMINATION: GENERAL: Appears chronically ill, no acute distress, scooting himself around in his wheelchair. HEAD: Normocephalic, atraumatic. EYES: PERRL, conjunctiva normal, all extraocular movements intact, sclera nonicteric ENT: Dry mucous membranes. NECK: Supple, no noticeable swelling, redness, rash. Normal range of motion. LUNGS: Equal breath sounds bilaterally and clear to auscultation. No wheezes rales or rhonchi. CARDIOVASCULAR: S1-S2, regular rate, regular rhythm. Radial pulses 2+, normal. ABDOMEN: Normoactive bowel sounds. Soft, nontender, no guarding, no rebound tenderness, and no masses palpated. EXTREMITIES: Decreased range of motion to right upper extremity due to pain. All other extremities have normal strength. NEUROLOGICAL: Moves all extremities upon command. PSYCH: Normal mood, normal affect. SKIN: Warm, very dry. Eczema noted all over body. Abscess noted to right shoulder at surgical site. Course - Re-evaluation Re-evalutation: 09/22/18 17:18 I have assessed the patient and noticed that he has looks like an abscess. I have contacted Dr. Valdes. He will call Dr. Marquis and consult with him since Dr. Marquis was the person who did the patient's surgery. Patient shoulder x-ray is negative for any acute fracture, osteomyelitis, or dislocation. I did not some fluctuance to the area on palpation. He does have some surrounding cellulitis that appears to be spreading towards the superior portion of his shoulder. Although his white blood cell count is only 7000, his ESR and CRP are both elevated. 09/22/18 17:23 Dr. Valdes has called me back and states that he will admit the patient. The patient will be n.p.o. at midnight and surgery will be done tomorrow. - Vital Signs Vital signs: Temp Pulse Resp BP Pulse Ox 98.3 F 108 H 18 128/84 H 96 09/22/18 19:00 09/22/18 11:41 09/22/18 19:00 09/22/18 19:00 09/22/18 19:00 - Laboratory Result Diagrams: 09/22/18 13:38 09/22/18 13:38 Laboratory results interpreted by me: 09/22/18 09/22/18 13:38 13:38 Hgb 12.5 L Hct 37.3 L RDW 17.0 H ESR 90 H AST 16 L ALT 15 L C-Reactive Protein 76.9 H Discharge - Discharge Clinical Impression: Acute postoperative pain of right shoulder, Abscess Condition: Fair Admitting Provider: Orthopedics Unit Admitted: Surgical Floor
--- NOTE | 2018-09-22 18:29 | EKG REPORT ---
SEVERITY:- BORDERLINE ECG - SINUS RHYTHM BORDERLINE LEFT AXIS DEVIATION : Confirmed by: Aiden Yoo MD 22-Sep-2018 18:28:50
[2018-09-22 19:53] LABS: INTERNATIONAL RATION (INR) 1.01; PROTHROMBIN TIME 13.8 SEC (11.4-15.4)
[2018-09-23] MEDS ORDERED: VANCOMYCIN HCL INJ 1000 MG VIAL IV PRN (00:54)
[2018-09-23] MEDS ORDERED: VANCOMYCIN HCL INJ 1000 MG VIAL ONE (01:35)
[2018-09-23] MEDS: HYDROMORPHONE HCL INJ/PF 2 MG/ML AMPULE IV PRN ×5 (02:00→21:55)
[2018-09-23] MEDS: RINGERS SOLUTION,LACTATED 1,000 ML IV PRN (02:02)
[2018-09-23] MEDS: VANCOMYCIN HCL 1,000 MG in DEXTROSE 5%-WATER 250 ML IV SCH ×3 (04:29→17:16)
--- NOTE | 2018-09-23 07:04 | PDOC H&P ---
History of Present Illness Admission Date/PCP: 09/22/18 18:16 NISREEN MORENO DO History of Present Illness: GISSEL ALVA is a 57 year old male Patient is a 57-year-old white male status post right shoulder revision arthroplasty with surgical site infection in May. Cultures at that time Chris grew a pansensitive staph. The patient was discharged on suppressive antibiotic therapy. At some point in the recent past this is been discontinued and the patient now has a flare of the underlying infection. Past Medical History Cardiac Medical History: Reports: Hyperlipidema, Hypertension Denies: Atrial Fibrillation, Congestive Heart Failure, Coronary Artery Disease, Myocardial Infarction, Peripheral Vascular Disease, Pulmonary Embolism, Heart Murmur Pulmonary Medical History: Reports: Pneumonia, Sleep Apnea - should use one but doesn't have one currently Denies: Asthma, Bronchitis, Chronic Obstructive Pulmonary Disease (COPD), Respiratory Failure, Tuberculosis Neurological Medical History: Denies: Seizures Endocrine Medical History: Reports: Hypothyroidism Denies: Hyperthyroidism Renal/ Medical History: Denies: End Stage Renal Disease Malignancy Medical History: Denies: Lung Cancer GI Medical History: Denies: Cirrhosis, Gastroesophageal Reflux Disease Musculoskeltal Medical History: Denies: Arthritis, Fibromyalgia Psychiatric Medical History: Reports: Depression Denies: Bipolar Disorder, Dementia Hematology: Denies: Anemia, Bleeding Tendencies Past Surgical History Past Surgical History: Reports: Appendectomy, Orthopedic Surgery - Herniated disc to the neck and lumbar area repaired. Right shoulder replac, Other - Cataracts Denies: Cholecystectomy, Coronary Artery Bypass Graft, Gastric Bypass Surgery, Herniorrhaphy, Pacemaker, Tonsillectomy Social History Information Source: Patient, [facility]rlinda Office, [facility] Records Lives with: [facility] Smoking Status: Unknown if Ever Smoked Frequency of Alcohol Use: None Hx Recreational Drug Use: No Drugs: None Hx Prescription Drug Abuse: No - Advance Directive Resuscitation Status: Full Code Family History Family History: CAD, Hyperlipidemia, Hypertension, Malignancy Parental Family History Reviewed: No Children Family History Reviewed: No Sibling(s) Family History Reviewed.: No Medication/Allergy Home Medications: Amlodipine Besylate [Norvasc 5 mg Tablet] 5 mg PO QAM 06/03/18 Carbidopa/Levodopa [Sinemet 25-100 mg Tablet] 1 each PO MEALS 06/03/18 Hydrochlorothiazide [Hydrodiuril 12.5 mg Tablet] 12.5 mg PO QAM 06/03/18 Levothyroxine Sodium [Synthroid 0.1 mg Tablet] 0.1 mg PO Q6AM 06/03/18 Lisinopril [Prinivil 10 mg Tablet] 10 mg PO QAM 06/03/18 Mupirocin [Bactroban 2% Ointment 22 gm] 1 applic TP TIDP PRN 06/03/18 Tramadol HCl [Ultram 50 mg Tablet] 100 mg PO Q4HP PRN 06/03/18 Allergies/Adverse Reactions: Penicillins Allergy (Unknown, Verified 09/22/18 11:36) Anaphylaxis Review of Systems ROS unobtainable: Due to mental status All systems: as per PMH Physical Exam Vital Signs: Temp Pulse Resp BP Pulse Ox 36.7 C 61 28 H 136/88 H 94 09/23/18 01:00 09/22/18 23:25 09/23/18 01:00 09/23/18 01:00 09/23/18 01:00 Intake & Output 09/22/18 09/23/18 09/24/18 06:59 06:59 06:59 Intake Total 1000 Balance 1000 Weight 87.1 kg General appearance: PRESENT: no acute distress, mild distress Head exam: PRESENT: normocephalic Respiratory exam: PRESENT: unlabored Cardiovascular exam: PRESENT: RRR Vascular exam: PRESENT: normal capillary refill Musculoskeletal exam: PRESENT: other - Right shoulder incision area with some surrounding erythema but no drainage Neurological exam: PRESENT: alert, awake, oriented to person, oriented to place, oriented to time, oriented to situation. ABSENT: motor sensory deficit Skin exam: PRESENT: dry, erythema, intact, warm. ABSENT: cyanosis, rash Results Laboratory Results: 09/22/18 13:38 09/22/18 13:38 09/22/18 09/22/18 09/22/18 13:38 13:38 13:38 WBC 7.6 RBC 4.39 Hgb 12.5 L Hct 37.3 L MCV 85 MCH 28.5 MCHC 33.5 RDW 17.0 H Plt Count 278 Seg Neutrophils % 67.5 Lymphocytes % 19.1 Monocytes % 8.3 Eosinophils % 4.9 Basophils % 0.2 Absolute Neutrophils 5.1 Absolute Lymphocytes 1.4 Absolute Monocytes 0.6 Absolute Eosinophils 0.4 Absolute Basophils 0.0 VBG pH VBG pCO2 VBG HCO3 VBG Base Excess Sodium 142.8 Potassium 4.2 Chloride 104 Carbon Dioxide 29 Anion Gap 10 BUN 12 Creatinine 0.85 Est GFR ( Amer) > 60 Est GFR (Non-Af Amer) > 60 Glucose 98 Lactic Acid 0.9 Calcium 9.0 Total Bilirubin 0.4 AST 16 L ALT 15 L Alkaline Phosphatase 94 C-Reactive Protein 76.9 H Total Protein 7.4 Albumin 4.2 09/22/18 13:38 WBC RBC Hgb Hct MCV MCH MCHC RDW Plt Count Seg Neutrophils % Lymphocytes % Monocytes % Eosinophils % Basophils % Absolute Neutrophils Absolute Lymphocytes Absolute Monocytes Absolute Eosinophils Absolute Basophils VBG pH 7.32 VBG pCO2 59.2 VBG HCO3 30.0 VBG Base Excess 2.1 Sodium Potassium Chloride Carbon Dioxide Anion Gap BUN Creatinine Est GFR ( Amer) Est GFR (Non-Af Amer) Glucose Lactic Acid Calcium Total Bilirubin AST ALT Alkaline Phosphatase C-Reactive Protein Total Protein Albumin Impressions: Shoulder X-Ray 09/22/18 12:48 IMPRESSION: NEGATIVE STUDY OF THE RIGHT SHOULDER. NO RADIOGRAPHIC EVIDENCE OF ACUTE INJURY. Status: Imported from PACS Assessment & Plan - Diagnosis (1) Abscess Is this a current diagnosis for this admission?: Yes Plan: Patient is currently started on vancomycin to suppress the underlying cellulitis. At this can can be controlled initially the patient restarted on suppressive oral antibiotics this may suffice. (2) Acute postoperative pain of right shoulder Is this a current diagnosis for this admission?: Yes Plan: Will involve physical therapy to continue to work on range of motion - Time Time Spent: 30 to 50 Minutes Anticipated discharge: Other Within: Other
[2018-09-23] MEDS ORDERED: TRAMADOL HCL 50 MG TABLET PO PRN (07:53)
[2018-09-23 08:26] LABS: INTERNATIONAL RATION (INR) 1.01; PROTHROMBIN TIME 13.8 SEC (11.4-15.4)
[2018-09-23 08:27] LABS: PARTIAL THROMBOPLASTIN TIME 28.4 SEC (23.5-35.8)
[2018-09-23 08:38] LABS: ANION GAP 5 (5-19); BLOOD UREA NITROGEN 11 mg/dL (7-20); C-REACTIVE PROTEIN 67.4 mg/L (<10.0); CALCIUM 8.2 mg/dL (8.4-10.2); CARBON DIOXIDE 29 mmol/L (22-30); CHLORIDE 105 mmol/L (98-107); GLUCOSE 85 mg/dL (75-110); HEMATOCRIT 33.3 % (37.9-51.0); HEMOGLOBIN 11.2 g/dL (13.5-17.0); MEAN CORPUSCULAR HEMOGLOBIN 28.5 pg (27.0-33.4); MEAN CORPUSCULAR HGB CONC 33.7 g/dL (32.0-36.0); MEAN CORPUSCULAR VOLUME 85 fl (80-97); PLATELET COUNT 227 10^3/uL (150-450); POTASSIUM 3.9 mmol/L (3.6-5.0); RED BLOOD COUNT 3.93 10^6/uL (4.35-5.55); RED CELL DISTRIBUTION WIDTH 16.6 % (11.5-14.0); SODIUM 139.3 mmol/L (137-145); WHITE BLOOD COUNT 6.6 10^3/uL (4.0-10.5)
[2018-09-23 09:17] LABS: ERYTHROCYTE SEDIMENTATION RATE 72 mm/hr (0-20)
[2018-09-23] MEDS: HYDROCHLOROTHIAZIDE 12.5 MG TABLET PO SCH (09:17)
[2018-09-23] MEDS: LISINOPRIL 10 MG TABLET PO SCH (09:17)
[2018-09-23] MEDS: CARBIDOPA/LEVODOPA 25-100 MG TABLET PO SCH ×3 (09:17→17:14)
[2018-09-23] MEDS: AMLODIPINE BESYLATE 5 MG TABLET PO SCH (09:17)
[2018-09-23] MEDS: LEVOTHYROXINE SODIUM 0.1 MG TABLET PO SCH (09:18)
[2018-09-23 09:43] LABS: APPEARANCE,URINE SLIGHTLY-CLOUDY; BILIRUBIN,URINE NEGATIVE (NEGATIVE); COLOR,URINE YELLOW; GLUCOSE, URINE NEGATIVE (NEGATIVE); KETONES,URINE NEGATIVE (NEGATIVE); LEUKOCYTE ESTERASE,URINE NEGATIVE (NEGATIVE); NITRITE,URINE NEGATIVE (NEGATIVE); PROTEIN,URINE NEGATIVE (NEGATIVE); URINE SPECIFIC GRAVITY 1.018; UROBILINOGEN,URINE NEGATIVE mg/dL (<2.0)
[2018-09-24] MEDS: HYDROMORPHONE HCL INJ/PF 2 MG/ML AMPULE IV PRN ×2 (02:06→06:18)
[2018-09-24] MEDS: VANCOMYCIN HCL 1,000 MG in DEXTROSE 5%-WATER 250 ML IV SCH ×2 (02:07→11:30)
[2018-09-24] MEDS: LEVOTHYROXINE SODIUM 0.1 MG TABLET PO SCH (05:17)
[2018-09-24] MEDS: RINGERS SOLUTION,LACTATED 1,000 ML IV PRN ×2 (06:26→16:44)
--- NOTE | 2018-09-24 07:24 | PDOC PROGRESS REPORT ---
Subjective Progress Note for:: 09/24/18 Reason For Visit: RIGHT SHOULDER INFECTION 57-year-old white male status post right shoulder arthroplasty with surgical site infection initially on suppression IV product therapy which was stopped and the patient has a recurrent infection. Overnight the site began to drain. Physical Exam Vital Signs: Temp Pulse Resp BP Pulse Ox 36.8 C 91 18 140/76 H 94 09/24/18 04:20 09/24/18 04:20 09/24/18 04:20 09/24/18 04:20 09/24/18 04:20 Intake & Output 09/23/18 09/24/18 09/25/18 06:59 06:59 06:59 Intake Total 1000 3190 Output Total 190 2550 Balance 810 640 Weight 87.1 kg 87.9 kg General appearance: PRESENT: mild distress Head exam: PRESENT: normocephalic Respiratory exam: PRESENT: unlabored Cardiovascular exam: PRESENT: RRR Pulses: PRESENT: normal radial pulses Vascular exam: PRESENT: normal capillary refill GI/Abdominal exam: PRESENT: soft Rectal exam: PRESENT: deferred Extremities exam: PRESENT: other - Right shoulder wound has now begun to drain serous fluid. Results Laboratory Results: 09/23/18 08:03 09/23/18 08:03 09/23/18 09/23/18 09/23/18 08:03 08:03 08:25 WBC 6.6 RBC 3.93 L Hgb 11.2 L Hct 33.3 L MCV 85 MCH 28.5 MCHC 33.7 RDW 16.6 H Plt Count 227 Sodium 139.3 Potassium 3.9 Chloride 105 Carbon Dioxide 29 Anion Gap 5 BUN 11 Creatinine 0.90 Est GFR ( Amer) > 60 Est GFR (Non-Af Amer) > 60 Glucose 85 Calcium 8.2 L C-Reactive Protein 67.4 H Urine Color YELLOW Urine Appearance SLIGHTLY-CLOUDY Urine pH 5.0 Ur Specific [place] 1.018 Urine Protein NEGATIVE Urine Glucose (UA) NEGATIVE Urine Ketones NEGATIVE Urine Blood NEGATIVE Urine Nitrite NEGATIVE Ur Leukocyte Esterase NEGATIVE Urine WBC (Auto) 3 Urine RBC (Auto) 1 Impressions: Shoulder X-Ray 09/22/18 12:48 IMPRESSION: NEGATIVE STUDY OF THE RIGHT SHOULDER. NO RADIOGRAPHIC EVIDENCE OF ACUTE INJURY. Assessment & Plan - Diagnosis (1) Abscess Is this a current diagnosis for this admission?: Yes Plan: Plan for formal I&D of the shoulder with good deep cultures (2) Acute postoperative pain of right shoulder Is this a current diagnosis for this admission?: Yes
[2018-09-24] MEDS ORDERED: DEXTROSE 40% GEL 15 GM TUBE PO PRN ×2 (08:09)
[2018-09-24] MEDS ORDERED: GLUCAGON,HUMAN RECOMB 1 MG INJ SUBCUT PRN (08:09)
[2018-09-24] MEDS ORDERED: DEXTROSE 50%-WATER 25 GM/50 ML DISP.SYRIN IV PRN ×2 (08:09)
[2018-09-24] MEDS ORDERED: MIDAZOLAM 2 MG/2 ML INJ ONE (09:27)
[2018-09-24] MEDS ORDERED: FENTANYL CITRATE INJ/PF 100 MCG/2 ML AMPUL ONE ×2 (09:27→10:45)
[2018-09-24] MEDS ORDERED: PROPOFOL INJ 200 MG/20 ML VIAL IV ONE (09:27)
[2018-09-24] MEDS ORDERED: BACITRACIN INJ 50,000 UNIT VIAL ONE (10:38)
[2018-09-24] MEDS ORDERED: ACETAMINOPHEN 1,000 MG/100 ML RTUPB IV ONE (10:45)
[2018-09-24 11:31] LABS: VANCOMYCIN,TROUGH 24.4 ug/mL (5.0-20.0)
[2018-09-24] MEDS ORDERED: DEXAMETHASONE SOD PHOSPHATE INJ 4 MG/1 ML VIAL ONE (11:38)
[2018-09-24] MEDS ORDERED: ONDANSETRON HCL INJ/PF 4 MG/2 ML SDV ONE (11:38)
[2018-09-24] MEDS ORDERED: SUCCINYLCHOLINE CHLORIDE INJ 200 MG/10 ML VIAL ONE (11:38)
[2018-09-24] MEDS ORDERED: ONDANSETRON HCL INJ/PF 4 MG/2 ML SDV IV PRN (11:56)
[2018-09-24] MEDS ORDERED: MEPERIDINE HCL/PF INJ 25 MG/1 ML DISP.SYRIN IV PRN (11:56)
[2018-09-24] MEDS ORDERED: MORPHINE SULFATE 10 MG/ML INJ IV PRN (11:56)
[2018-09-24] MEDS ORDERED: FENTANYL CITRATE INJ/PF 100 MCG/2 ML AMPUL IV PRN ×3 (11:56)
[2018-09-24] MEDS ORDERED: DIPHENHYDRAMINE HCL 50 MG/ML VIAL IV PRN (11:56)
[2018-09-24] MEDS ORDERED: PROMETHAZINE HCL INJ 25 MG/1 ML VIAL IV PRN (11:56)
--- NOTE | 2018-09-24 12:02 | Operative Report ---
Operative Report DATE OF SURGERY: 09/24/18 PREOPERATIVE DIAGNOSIS: Right shoulder wound drainage status post reverse shoul angel arthroplasty OPERATION: Irrigation debridement of wound SURGEON: [place] ANESTHESIA: GA TISSUE REMOVED OR ALTERED: Cultures x2 to microbiology ESTIMATED BLOOD LOSS: Minimal PROCEDURE: With the patient in a beachchair position on the operative table the right upper extremity forequarter prepped and draped in sterile fashion. The existing wound is excised along its periphery and sharp dissection used to clear the depths of the wound. The depth of the wound are largely soft tissue at the level of the deltopectoral interval. The wound is then irrigated with 3 L normal saline containing bacitracin and pulse lavage followed by 3 L normal saline. The wound is again debrided. Hemostasis obtained with electrocautery. The wound was then closed in layers interrupted PDS at the deep muscle layer, at the subcutaneous layer, and at the skin. A sterile compressive dressing was applied and the patient's return to the PACU in satisfactory condition.
[2018-09-24] MEDS: FENTANYL CITRATE INJ/PF 100 MCG/2 ML AMPUL ONE ×2 (12:30→12:34)
[2018-09-24] MEDS ORDERED: OXYCODONE HCL IR 5 MG TABLET PO PRN (12:39)
[2018-09-24] MEDS ORDERED: DIPHENHYDRAMINE HCL 25 MG CAPSULE PO PRN (12:40)
[2018-09-24] MEDS ORDERED: ONDANSETRON 4 MG TAB.RAPDIS SL PRN (12:40)
[2018-09-24] MEDS: AMLODIPINE BESYLATE 5 MG TABLET PO SCH (13:59)
[2018-09-24] MEDS: HYDROCHLOROTHIAZIDE 12.5 MG TABLET PO SCH (13:59)
[2018-09-24] MEDS: LISINOPRIL 10 MG TABLET PO SCH (14:00)
[2018-09-24] MEDS: CARBIDOPA/LEVODOPA 25-100 MG TABLET PO SCH (14:01)
[2018-09-24] MEDS: MORPHINE SULFATE 10 MG/ML INJ IV PRN ×3 (14:18→20:03)
[2018-09-24] MEDS ORDERED: HYDROCORTISONE 1% OINTMENT 28.35 GM TP PRN (15:46)
[2018-09-24 18:44] LABS: ABSOLUTE LYMPHOCYTES (AUTO) 0.6 10^3/uL (0.5-4.7); ABSOLUTE MONOCYTES (AUTO) 0.1 10^3/uL (0.1-1.4); ABSOLUTE NEUT (AUTO) 4.8 10^3/uL (1.7-8.2); BASOPHILS % (AUTO) 0.7 % (0-2); EOSINOPHILS % (AUTO) 0.2 % (0-6); HEMATOCRIT 31.6 % (37.9-51.0); HEMOGLOBIN 10.7 g/dL (13.5-17.0); LYMPHOCYTES % (AUTO) 10.9 % (13-45); MEAN CORPUSCULAR HEMOGLOBIN 28.6 pg (27.0-33.4); MEAN CORPUSCULAR HGB CONC 33.8 g/dL (32.0-36.0); MEAN CORPUSCULAR VOLUME 84 fl (80-97); MONOCYTES % (AUTO) 0.9 % (3-13); PLATELET COUNT 254 10^3/uL (150-450); RED BLOOD COUNT 3.74 10^6/uL (4.35-5.55); RED CELL DISTRIBUTION WIDTH 16.6 % (11.5-14.0); SEGMENTED NEUTROPHILS % (AUTO) 87.3 % (42-78); TOTAL CELLS COUNTED % (AUTO) 100 %; WHITE BLOOD COUNT 5.5 10^3/uL (4.0-10.5)
[2018-09-24 18:55] LABS: INTERNATIONAL RATION (INR) 1.02; PROTHROMBIN TIME 13.9 SEC (11.4-15.4)
[2018-09-24 18:56] LABS: PARTIAL THROMBOPLASTIN TIME 25.7 SEC (23.5-35.8)
[2018-09-24 19:00] LABS: ANION GAP 7 (5-19); BLOOD UREA NITROGEN 8 mg/dL (7-20); CALCIUM 8.1 mg/dL (8.4-10.2); CARBON DIOXIDE 30 mmol/L (22-30); CHLORIDE 103 mmol/L (98-107); GLUCOSE 205 mg/dL (75-110); POTASSIUM 4.3 mmol/L (3.6-5.0); SODIUM 139.5 mmol/L (137-145)
[2018-09-25] MEDS: MORPHINE SULFATE 10 MG/ML INJ IV PRN ×3 (00:34→21:36)
[2018-09-25] MEDS: RINGERS SOLUTION,LACTATED 1,000 ML IV PRN ×2 (00:37→17:10)
--- NOTE | 2018-09-25 07:01 | PDOC PROGRESS REPORT ---
Subjective Progress Note for:: 09/25/18 Reason For Visit: RIGHT SHOULDER INFECTION 57-year-old white male status post right shoulder I&D postop day 1. Cultures pending. Previous cultures were positive for pansensitive staph. Patient complaining about inadequate pain control. Physical Exam Vital Signs: Temp Pulse Resp BP Pulse Ox 36.6 C 92 20 119/81 94 09/25/18 04:36 09/25/18 04:36 09/25/18 04:36 09/25/18 04:36 09/25/18 04:36 Intake & Output 09/23/18 09/24/18 09/25/18 06:59 06:59 06:59 Intake Total 1000 3190 3346 Output Total 190 2550 1235 Balance 587 828 8123 Weight 87.1 kg 87.9 kg 87.8 kg General appearance: PRESENT: mild distress Head exam: PRESENT: normocephalic Respiratory exam: PRESENT: unlabored Cardiovascular exam: PRESENT: RRR Vascular exam: PRESENT: normal capillary refill GI/Abdominal exam: PRESENT: soft Rectal exam: PRESENT: deferred Extremities exam: PRESENT: other - Right shoulder dressing clean dry and intact. Neurological exam: PRESENT: alert, awake, oriented to person, oriented to place, oriented to time, oriented to situation Results Laboratory Results: 09/24/18 18:35 09/24/18 18:35 09/24/18 09/24/18 18:35 18:35 WBC 5.5 RBC 3.74 L Hgb 10.7 L Hct 31.6 L MCV 84 MCH 28.6 MCHC 33.8 RDW 16.6 H Plt Count 254 Seg Neutrophils % 87.3 H Lymphocytes % 10.9 L Monocytes % 0.9 L Eosinophils % 0.2 Basophils % 0.7 Absolute Neutrophils 4.8 Absolute Lymphocytes 0.6 Absolute Monocytes 0.1 Absolute Eosinophils 0.0 Absolute Basophils 0.0 Sodium 139.5 Potassium 4.3 Chloride 103 Carbon Dioxide 30 Anion Gap 7 BUN 8 Creatinine 0.87 Est GFR ( Amer) > 60 Est GFR (Non-Af Amer) > 60 Glucose 205 H Calcium 8.1 L Impressions: Shoulder X-Ray 09/22/18 12:48 IMPRESSION: NEGATIVE STUDY OF THE RIGHT SHOULDER. NO RADIOGRAPHIC EVIDENCE OF ACUTE INJURY. Status: Imported from PACS Assessment & Plan - Diagnosis (1) Abscess Is this a current diagnosis for this admission?: Yes Plan: Patient status post I&D. Will readjust antibiotics pending culture results. Increase analgesia appropriately. Declined to be inserted in radiology today. (2) Acute postoperative pain of right shoulder Is this a current diagnosis for this admission?: Yes Plan: Oxycodone increased to every 4 hours as needed - Time Time Spent with patient: 15-24 minutes Anticipated discharge: SNF Within: when bed available
[2018-09-25] MEDS: LEVOTHYROXINE SODIUM 0.1 MG TABLET PO SCH (07:42)
[2018-09-25] MEDS: CARBIDOPA/LEVODOPA 25-100 MG TABLET PO SCH ×4 (07:43→17:10)
[2018-09-25] MEDS: HYDROCHLOROTHIAZIDE 12.5 MG TABLET PO SCH (07:57)
[2018-09-25] MEDS: LISINOPRIL 10 MG TABLET PO SCH (07:57)
[2018-09-25] MEDS: AMLODIPINE BESYLATE 5 MG TABLET PO SCH (07:57)
[2018-09-25] MEDS: HYDROMORPHONE HCL INJ/PF 2 MG/ML AMPULE IV PRN ×3 (08:10→17:07)
[2018-09-25] MEDS ORDERED: OXYCODONE HCL IR 5 MG TABLET PO PRN (10:00)
[2018-09-25] MEDS: VANCOMYCIN HCL 1,000 MG in DEXTROSE 5%-WATER 250 ML IV SCH ×2 (10:53→22:58)
--- NOTE | 2018-09-25 11:39 | RADIOLOGY REPORT (SQ) ---
EXAM DESCRIPTION: PICC INSERTION; FLUORO/CV PLACEMENT; U/S GUIDE FOR VASCULAR ACCESS COMPLETED DATE/TIME: 09/25/2018 11:13 am REASON FOR STUDY: UNABLE TO ESTABLISH PERIPHERAL ACCESS; IV ACCESS COMPARISON: None. FLUOROSCOPY TIME: 27 seconds One fluoro and one ultrasound images saved to PACS. TECHNIQUE: Fluoroscopic and ultrasound guided PICC placement. LIMITATIONS: None. PROCEDURE: After written consent and assessment were obtained, the patient was brought into the fluo roscopy room and placed supine on the table. Ultrasound evaluation of potential access sites were per formed. After successfully identifying a patent left basilic vein, the left arm was prepped and drape d in a sterile fashion along with the ultrasound probe. The entry site was anesthetized with 1% lidoc bandar. A 21 gauge 7 cm needle was advanced through the skin and into the basilic vein under live ultra sound guidance. An ultrasound image was saved to PACS confirming access site. A .018 guide wire was then inserted through the needle and into the venous system. The needle was then removed and an 11 b lade scalpel was used to make a 1cm skin incision. A 5 fr peel-away sheath was advanced over the wir e and into the venous system. A measurement was then made using the existing wire and live fluoroscop ic guidance. The wire was then removed and trimmed. The PICC was advanced through the peel-away sheat h and into the venous system. The peel-away sheath was removed and the catheter was adhered to the pa tients arm with a stat lock. The catheter was then aspirated and flushed and a sterile bandage was pl aced over the access site. A fluoroscopic spot image was saved to PACS confirming the catheter tip w ithin the superior vena cava. IMPRESSION: SUCCESSFUL PLACEMENT OF A 5 FR DUAL LUMEN 32.5 CM PICC IN THE LEFT BASILIC VEIN. COMMENT: Patient medication list reviewed: Yes- Quality ID# 130:Eligible professional attests to doc umenting in the medical record they obtained, updated, or reviewed the patient's current medications. . Quality ID 145: Final reports for procedures using fluoroscopy that document radiation exposure daniella reji, or exposure time and number of fluorographic images (if radiation exposure indices are not avail able) Quality ID #76: The patient was prepped and draped using maximum sterile barrier technique including cap, mask, sterile gown, sterile gloves, a large sterile sheet, hand hygiene, and 2% Chlorhexidine fo r cutaneous antisepsis. When ultrasound is used, sterile ultrasound techniques are followed requiring sterile gel and sterile probes. TECHNICAL DOCUMENTATION: JOB ID: [id number] [employer]- All Rights Reserved rev-12/20 Reading location - IP/workstation name: [email or web address]
[2018-09-25] MEDS ORDERED: NORMAL SALINE 10 ML SDV (AFTER EACH USE) IV PRN (16:30)
[2018-09-25] MEDS: NORMAL SALINE 10 ML SDV (SCHEDULED) IV SCH (22:57)
[2018-09-26] MEDS: MORPHINE SULFATE 10 MG/ML INJ IV PRN ×5 (01:07→17:42)
[2018-09-26] MEDS: RINGERS SOLUTION,LACTATED 1,000 ML IV PRN ×3 (01:10→17:42)
[2018-09-26] MEDS: LEVOTHYROXINE SODIUM 0.1 MG TABLET PO SCH (06:34)
--- NOTE | 2018-09-26 07:31 | PDOC PROGRESS REPORT ---
Subjective Progress Note for:: 09/26/18 Reason For Visit: RIGHT SHOULDER INFECTION 57-year-old white male status post I&D of a right shoulder abscess. Cultures are growing gram-positive cocci in clusters. Sensitivities not available at this point but previous sensitivities from the same wound demonstrated pansensitive staph. Physical Exam Vital Signs: Temp Pulse Resp BP Pulse Ox 36.4 C 83 16 107/58 L 94 09/26/18 03:58 09/26/18 03:58 09/26/18 03:58 09/26/18 03:58 09/26/18 03:58 Intake & Output 09/25/18 09/26/18 09/27/18 06:59 06:59 06:59 Intake Total 3346 3650 Output Total 1235 275 Balance 2111 3375 Weight 87.8 kg 91 kg General appearance: PRESENT: mild distress Head exam: PRESENT: normocephalic Respiratory exam: PRESENT: unlabored Cardiovascular exam: PRESENT: RRR Vascular exam: PRESENT: normal capillary refill Extremities exam: PRESENT: other - Current postoperative dressing remains clean and dry. Results Laboratory Results: 09/24/18 18:35 09/24/18 18:35 09/23/18 08:25 Clean Catch Midstream Urine Culture - Final NO GROWTH 2 DAYS Impressions: Shoulder X-Ray 09/22/18 12:48 IMPRESSION: NEGATIVE STUDY OF THE RIGHT SHOULDER. NO RADIOGRAPHIC EVIDENCE OF ACUTE INJURY. Guidance Fluoroscopy 09/25/18 00:00 IMPRESSION: SUCCESSFUL PLACEMENT OF A 5 FR DUAL LUMEN 32.5 CM PICC IN THE LEFT BASILIC VEIN. Interventional Vascular Procedure 09/25/18 00:00 IMPRESSION: SUCCESSFUL PLACEMENT OF A 5 FR DUAL LUMEN 32.5 CM PICC IN THE LEFT BASILIC VEIN. PICC Line Insertion 09/25/18 00:00 IMPRESSION: SUCCESSFUL PLACEMENT OF A 5 FR DUAL LUMEN 32.5 CM PICC IN THE LEFT BASILIC VEIN. Status: Imported from PACS Assessment & Plan - Diagnosis (1) Abscess Is this a current diagnosis for this admission?: Yes Plan: Plan is to switch from vancomycin to an appropriate antibiotic once sensitivities are available. Anticipate 6 weeks of IV antibiotic therapy followed by suppressive coverage. (2) Acute postoperative pain of right shoulder Is this a current diagnosis for this admission?: Yes - Time Time Spent with patient: 15-24 minutes Anticipated discharge: SNF Within: Other
[2018-09-26] MEDS: HYDROCHLOROTHIAZIDE 12.5 MG TABLET PO SCH (08:32)
[2018-09-26] MEDS: AMLODIPINE BESYLATE 5 MG TABLET PO SCH (08:33)
[2018-09-26] MEDS: LISINOPRIL 10 MG TABLET PO SCH (08:33)
[2018-09-26] MEDS: CARBIDOPA/LEVODOPA 25-100 MG TABLET PO SCH ×3 (08:33→17:01)
[2018-09-26] MEDS: VANCOMYCIN HCL 1,000 MG in DEXTROSE 5%-WATER 250 ML IV SCH ×2 (10:32→22:42)
[2018-09-26] MEDS: NORMAL SALINE 10 ML SDV (SCHEDULED) IV SCH ×2 (10:33→22:42)
[2018-09-26] MEDS: HYDROMORPHONE HCL INJ/PF 2 MG/ML AMPULE IV PRN (22:43)
[2018-09-26 23:32] LABS: VANCOMYCIN,TROUGH 14.7 ug/mL (5.0-20.0)
[2018-09-27] MEDS: MORPHINE SULFATE 10 MG/ML INJ IV PRN ×4 (02:13→22:16)
[2018-09-27] MEDS: RINGERS SOLUTION,LACTATED 1,000 ML IV PRN ×2 (02:13→09:05)
[2018-09-27] MEDS: DIPHENHYDRAMINE HCL 25 MG/10 ML UDC PO PRN ×2 (02:15→09:17)
[2018-09-27] MEDS: LEVOTHYROXINE SODIUM 0.1 MG TABLET PO SCH (05:46)
[2018-09-27] MEDS: HYDROMORPHONE HCL INJ/PF 2 MG/ML AMPULE IV PRN ×2 (05:46→12:18)
[2018-09-27] MEDS: LISINOPRIL 10 MG TABLET PO SCH (09:06)
[2018-09-27] MEDS: HYDROCHLOROTHIAZIDE 12.5 MG TABLET PO SCH (09:06)
[2018-09-27] MEDS: AMLODIPINE BESYLATE 5 MG TABLET PO SCH (09:06)
[2018-09-27] MEDS: CARBIDOPA/LEVODOPA 25-100 MG TABLET PO SCH ×2 (09:06→14:00)
[2018-09-27] MEDS: VANCOMYCIN HCL 1,000 MG in DEXTROSE 5%-WATER 250 ML IV SCH ×2 (09:37→22:14)
[2018-09-27] MEDS: NORMAL SALINE 10 ML SDV (SCHEDULED) IV SCH ×2 (11:00→22:17)
--- NOTE | 2018-09-27 15:08 | PDOC PROGRESS REPORT ---
Subjective Progress Note for:: 09/27/18 Subjective:: 57-year-old male status post I&D right periprosthetic shoulder infection. According the nursing they have been doing daily dressing changes with mild serosanguineous drainage. Patient denies fever chills or sweats. Reason For Visit: RIGHT SHOULDER INFECTION Physical Exam Vital Signs: Temp Pulse Resp BP Pulse Ox 98.0 F 91 18 120/77 95 09/27/18 12:06 09/27/18 12:06 09/27/18 12:06 09/27/18 12:06 09/27/18 12:06 Intake & Output 09/26/18 09/27/18 09/28/18 06:59 06:59 06:59 Intake Total 3650 4520 1250 Output Total 275 400 Balance 3375 4120 1250 Weight 91 kg 92.1 kg Musculoskeletal exam: PRESENT: other - Right upper extremity: Dressing change today. Mild bloody clear drainage from the distal aspect of the wound. No evidence of purulent drainage. Thumb and palm deformity chronic in nature. No significant swelling. No streaking erythema. Results Laboratory Results: 09/24/18 18:35 09/26/18 22:30 09/26/18 22:30 Creatinine 0.74 Est GFR ( Amer) > 60 Est GFR (Non-Af Amer) > 60 09/22/18 13:18 Blood Blood Culture - Final NO GROWTH IN 5 DAYS 09/24/18 11:42 Shoulder - Right Gram Stain - Final 09/24/18 11:42 Shoulder - Right Wound Culture - Final Staphylococcus Aureus No Anaerobic Organisms 09/24/18 11:42 Shoulder - Right Gram Stain - Final 09/24/18 11:42 Shoulder - Right Wound Culture - Final Staphylococcus Aureus No Anaerobic Organisms Impressions: Shoulder X-Ray 09/22/18 12:48 IMPRESSION: NEGATIVE STUDY OF THE RIGHT SHOULDER. NO RADIOGRAPHIC EVIDENCE OF ACUTE INJURY. Guidance Fluoroscopy 09/25/18 00:00 IMPRESSION: SUCCESSFUL PLACEMENT OF A 5 FR DUAL LUMEN 32.5 CM PICC IN THE LEFT BASILIC VEIN. Interventional Vascular Procedure 09/25/18 00:00 IMPRESSION: SUCCESSFUL PLACEMENT OF A 5 FR DUAL LUMEN 32.5 CM PICC IN THE LEFT BASILIC VEIN. PICC Line Insertion 09/25/18 00:00 IMPRESSION: SUCCESSFUL PLACEMENT OF A 5 FR DUAL LUMEN 32.5 CM PICC IN THE LEFT BASILIC VEIN. Assessment & Plan - Diagnosis (1) Acute postoperative pain of right shoulder Is this a current diagnosis for this admission?: Yes Plan: Status post I&D right shoulder abscess. Awaiting discharge planning for IV vancomycin patient will require 6 weeks. Although microbiology is MSSA given patient's penicillin allergy vancomycin is likely the better choice. Continue daily dressing change.
[2018-09-28] MEDS: RINGERS SOLUTION,LACTATED 1,000 ML IV PRN ×4 (01:00→21:22)
[2018-09-28] MEDS: MORPHINE SULFATE 10 MG/ML INJ IV PRN (04:12)
[2018-09-28] MEDS: CARBIDOPA/LEVODOPA 25-100 MG TABLET PO SCH ×4 (06:11→16:08)
[2018-09-28] MEDS: LEVOTHYROXINE SODIUM 0.1 MG TABLET PO SCH (06:49)
[2018-09-28] MEDS: HYDROMORPHONE HCL INJ/PF 2 MG/ML AMPULE IV PRN ×3 (07:21→23:55)
[2018-09-28] MEDS: HYDROCHLOROTHIAZIDE 12.5 MG TABLET PO SCH (09:11)
[2018-09-28] MEDS: VANCOMYCIN HCL 1,000 MG in DEXTROSE 5%-WATER 250 ML IV SCH ×2 (09:11→21:22)
[2018-09-28] MEDS: LISINOPRIL 10 MG TABLET PO SCH (09:12)
[2018-09-28] MEDS: AMLODIPINE BESYLATE 5 MG TABLET PO SCH (09:12)
[2018-09-28] MEDS: NORMAL SALINE 10 ML SDV (SCHEDULED) IV SCH ×2 (09:14→21:23)
--- NOTE | 2018-09-28 13:49 | PDOC PROGRESS REPORT ---
Subjective Progress Note for:: 09/28/18 Subjective:: 57-year-old male status post I&D right periprosthetic shoulder infection. According the nursing they have been doing daily dressing changes with mild serosanguineous drainage. Patient denies fever chills or sweats. No changes. Reason For Visit: RIGHT SHOULDER INFECTION Physical Exam Vital Signs: Temp Pulse Resp BP Pulse Ox 98.3 F 68 16 133/79 H 95 09/28/18 11:25 09/28/18 11:25 09/28/18 11:25 09/28/18 11:25 09/28/18 11:25 Intake & Output 09/27/18 09/28/18 09/29/18 06:59 06:59 06:59 Intake Total 4520 2900 1207 Output Total 400 Balance 4120 2900 1207 Weight 92.1 kg 89.2 kg Musculoskeletal exam: PRESENT: other - Right shoulder: Minimal serosanguineous drainage. No expressible drainage. No erythema. Results Laboratory Results: 09/24/18 18:35 09/26/18 22:30 09/22/18 15:30 Blood Blood Culture - Final NO GROWTH IN 5 DAYS 09/22/18 13:18 Blood Blood Culture - Final NO GROWTH IN 5 DAYS Impressions: Shoulder X-Ray 09/22/18 12:48 IMPRESSION: NEGATIVE STUDY OF THE RIGHT SHOULDER. NO RADIOGRAPHIC EVIDENCE OF ACUTE INJURY. Guidance Fluoroscopy 09/25/18 00:00 IMPRESSION: SUCCESSFUL PLACEMENT OF A 5 FR DUAL LUMEN 32.5 CM PICC IN THE LEFT BASILIC VEIN. Interventional Vascular Procedure 09/25/18 00:00 IMPRESSION: SUCCESSFUL PLACEMENT OF A 5 FR DUAL LUMEN 32.5 CM PICC IN THE LEFT BASILIC VEIN. PICC Line Insertion 09/25/18 00:00 IMPRESSION: SUCCESSFUL PLACEMENT OF A 5 FR DUAL LUMEN 32.5 CM PICC IN THE LEFT BASILIC VEIN. Assessment & Plan - Diagnosis (1) Acute postoperative pain of right shoulder Is this a current diagnosis for this admission?: Yes Plan: Status post I&D right shoulder abscess. Awaiting discharge planning for IV vancomycin patient will require 6 weeks. Although microbiology is MSSA given patient's penicillin allergy vancomycin is likely the better choice. Continue daily dressing change.
[2018-09-29] MEDS: HYDROMORPHONE HCL INJ/PF 2 MG/ML AMPULE IV PRN ×4 (04:27→19:31)
[2018-09-29] MEDS: LEVOTHYROXINE SODIUM 0.1 MG TABLET PO SCH (05:36)
[2018-09-29] MEDS: RINGERS SOLUTION,LACTATED 1,000 ML IV PRN ×3 (05:38→20:50)
[2018-09-29] MEDS: HYDROCHLOROTHIAZIDE 12.5 MG TABLET PO SCH (10:04)
[2018-09-29] MEDS: LISINOPRIL 10 MG TABLET PO SCH (10:04)
[2018-09-29] MEDS: CARBIDOPA/LEVODOPA 25-100 MG TABLET PO SCH ×3 (10:05→20:41)
[2018-09-29] MEDS: AMLODIPINE BESYLATE 5 MG TABLET PO SCH (10:05)
[2018-09-29] MEDS: VANCOMYCIN HCL 1,000 MG in DEXTROSE 5%-WATER 250 ML IV SCH ×2 (12:10→22:49)
[2018-09-29] MEDS: NORMAL SALINE 10 ML SDV (SCHEDULED) IV SCH ×2 (13:09→22:50)
[2018-09-29] MEDS: DIPHENHYDRAMINE HCL 25 MG/10 ML UDC PO PRN (20:49)
[2018-09-30] MEDS: HYDROMORPHONE HCL INJ/PF 2 MG/ML AMPULE IV PRN (01:18)
[2018-09-30] MEDS: MORPHINE SULFATE 10 MG/ML INJ IV PRN ×5 (05:18→21:37)
[2018-09-30] MEDS: RINGERS SOLUTION,LACTATED 1,000 ML IV PRN ×2 (05:18→19:47)
[2018-09-30] MEDS: LEVOTHYROXINE SODIUM 0.1 MG TABLET PO SCH (05:18)
[2018-09-30] MEDS: LISINOPRIL 10 MG TABLET PO SCH (08:53)
[2018-09-30] MEDS: AMLODIPINE BESYLATE 5 MG TABLET PO SCH (08:53)
[2018-09-30] MEDS: CARBIDOPA/LEVODOPA 25-100 MG TABLET PO SCH ×3 (08:54→17:29)
[2018-09-30] MEDS: HYDROCHLOROTHIAZIDE 12.5 MG TABLET PO SCH (08:54)
[2018-09-30] MEDS: NORMAL SALINE 10 ML SDV (SCHEDULED) IV SCH ×2 (10:40→21:38)
[2018-09-30] MEDS: VANCOMYCIN HCL 1,000 MG in DEXTROSE 5%-WATER 250 ML IV SCH (19:48)
[2018-09-30] MEDS: DIPHENHYDRAMINE HCL 25 MG/10 ML UDC PO PRN (22:55)
[2018-10-01] MEDS: MORPHINE SULFATE 10 MG/ML INJ IV PRN ×2 (01:41→06:15)
[2018-10-01] MEDS: VANCOMYCIN HCL 1,000 MG in DEXTROSE 5%-WATER 250 ML IV SCH (06:10)
[2018-10-01] MEDS: LEVOTHYROXINE SODIUM 0.1 MG TABLET PO SCH (06:15)
[2018-10-01] MEDS: AMLODIPINE BESYLATE 5 MG TABLET PO SCH (09:10)
[2018-10-01] MEDS: CARBIDOPA/LEVODOPA 25-100 MG TABLET PO SCH ×2 (09:11→13:11)
[2018-10-01] MEDS: HYDROCHLOROTHIAZIDE 12.5 MG TABLET PO SCH (09:11)
[2018-10-01] MEDS: LISINOPRIL 10 MG TABLET PO SCH (09:12)
[2018-10-01] MEDS: NORMAL SALINE 10 ML SDV (SCHEDULED) IV SCH (09:13)
[2018-10-01] MEDS ORDERED: HYDROCOD/ACETAMIN 7.5-325 MG/15 ML ORAL SOLN UDCUP PO PRN (09:22)
[2018-10-01] MEDS ORDERED: LEVOFLOXACIN 750 MG/D5W RTU 750 MG/150 ML RTUPB IV SCH ×2 (10:00→15:00)
[2018-10-01 14:03] VITALS: BP 147/104
--- NOTE | 2018-10-01 16:31 | PDOC TRANSFER SUMMARY ---
General - Admit/Disc Date/PCP Admission Date/Primary Care Provider: 09/22/18 18:16 NISREEN MORENO DO Discharge Date: 10/01/18 - Discharge Diagnosis (1) Abscess Is this a current diagnosis for this admission?: Yes (2) Acute postoperative pain of right shoulder Is this a current diagnosis for this admission?: Yes - Additional Information Resuscitation Status: Full Code Discharge Diet: Regular Home Medications: Amlodipine Besylate [Norvasc 5 mg Tablet] 5 mg PO QAM 06/03/18 Carbidopa/Levodopa [Sinemet 25-100 mg Tablet] 1 each PO MEALS 06/03/18 Hydrochlorothiazide [Hydrodiuril 12.5 mg Tablet] 12.5 mg PO QAM 06/03/18 Levothyroxine Sodium [Synthroid 0.1 mg Tablet] 0.1 mg PO Q6AM 06/03/18 Lisinopril [Prinivil 10 mg Tablet] 10 mg PO QAM 06/03/18 Mupirocin [Bactroban 2% Ointment 22 gm] 1 applic TP TIDP PRN 06/03/18 Tramadol HCl [Ultram 50 mg Tablet] 100 mg PO Q4HP PRN 06/03/18 History of Present Illness Admission Date/PCP: 09/22/18 18:16 NISREEN MORENO DO History of Present Illness: Patient is a 57-year-old white male with multiple medical comorbidities inc luding Parkinson's disease who is status post multiple right shoulder surgical procedures with a resultant chronic periprosthetic infection involving MSSA. The patient had been treated in the past and left on suppressive Levaquin. Its first reasons that are unknown the Levaquin became discontinued and the patient had a flare of his infection. Patient is admitted for treatment of the right shoulder periprosthetic infection. Hospital Course Hospital Course: Patient was started on antibiotics and subsequently taken to the operating room for an I&D. Intraoperative cultures are consistent with MSSA. The patient was maintained on IV antibiotics. He continued to complain of right shoulder pain that was primarily scapular as opposed to incisional. IV antibiotics were changed initially started his vancomycin empirically and then changed to Levaquin once the culture and sensitivity results were available. The patient also complained postoperatively of severe itching particularly of the left upper extremity and was associated with a dermatologic condition that I suspect is psoriasis. This was treated with a combination of Benadryl and topical cortisone. The patient's skin eruption has largely resolved at the time of discharge but he continues to have significant puritis. Physical Exam Vital Signs: Temp Pulse Resp BP Pulse Ox 36.5 C 95 12 147/104 H 97 10/01/18 11:35 10/01/18 11:35 10/01/18 11:35 10/01/18 11:35 10/01/18 11:35 Intake & Output 09/30/18 10/01/18 10/02/18 06:59 06:59 06:59 Intake Total 5155 2100 900 Output Total 2300 1400 500 Balance 2855 700 400 Weight 87.407 kg 88.3 kg General appearance: PRESENT: mild distress, well-developed, well-nourished Exam: The patient is a relatively unkept appearing middle-aged white male who is alert, oriented, and appropriate. Head exam: PRESENT: normocephalic Respiratory exam: PRESENT: unlabored Cardiovascular exam: PRESENT: RRR Pulses: PRESENT: normal radial pulses Vascular exam: PRESENT: normal capillary refill GI/Abdominal exam: PRESENT: soft Rectal exam: PRESENT: deferred Extremities exam: PRESENT: other - Right upper extremity incision is well approximated with sutures. There is minimal drainage. There is a significantly restricted range of motion both actively and passively. Distal neurovascular examination is intact. Neurological exam: PRESENT: alert, awake, oriented to person, oriented to place, oriented to time, oriented to situation. ABSENT: motor sensory deficit Psychiatric exam: PRESENT: appropriate affect, normal mood. ABSENT: homicidal ideation, suicidal ideation Skin exam: PRESENT: dry, intact, warm. ABSENT: cyanosis, rash Results Laboratory Results: 09/24/18 18:35 09/26/18 22:30 Impressions: Shoulder X-Ray 09/22/18 12:48 IMPRESSION: NEGATIVE STUDY OF THE RIGHT SHOULDER. NO RADIOGRAPHIC EVIDENCE OF ACUTE INJURY. Guidance Fluoroscopy 09/25/18 00:00 IMPRESSION: SUCCESSFUL PLACEMENT OF A 5 FR DUAL LUMEN 32.5 CM PICC IN THE LEFT BASILIC VEIN. Interventional Vascular Procedure 09/25/18 00:00 IMPRESSION: SUCCESSFUL PLACEMENT OF A 5 FR DUAL LUMEN 32.5 CM PICC IN THE LEFT BASILIC VEIN. PICC Line Insertion 09/25/18 00:00 IMPRESSION: SUCCESSFUL PLACEMENT OF A 5 FR DUAL LUMEN 32.5 CM PICC IN THE LEFT BASILIC VEIN. Status: Imported from PACS Transfer Plan - Time Spent with Patient Time spent with patient: Less than 30 Minutes Qualifiers - * PATIENT BEING DISCHARGED WITH ANY OF THE FOLLOWING DIAGNOSIS: No VTE patient discharged on overlapping Therapy?: No Reason(s) for not prescribing Overlap Therapy:: Not indicated Plan Discharge Plan: The patient be discharged to a assisted facility with the anticipation of 6 weeks of IV Levaquin administration. He can work with occupational therapy/p hysical therapy on right shoulder range of motion although I suspect that this will largely remain limited. Follow-up with Dr. Marquis and [facility] for surgery in 2 weeks for suture removal.
== END 2018-10-01 14:10 | DRG 581 ==
LOC: ER 11:35 → EH 18:16 → 2N 09-23 00:31
PROVIDERS: ADMIT Orthopaedic Surgery; ATTEND Orthopaedic Surgery
PROC: 0JDD0ZZ Extraction of Right Upper Arm Subcutaneous Tissue and Fascia, Open Approach (ICD-10-PCS; principal; 2018-09-24 10:15)
PROC: 02HV33Z Insertion of Infusion Device into Superior Vena Cava, Percutaneous Approach (ICD-10-PCS; 2018-09-25)
PROC: B548ZZA Ultrasonography of Superior Vena Cava, Guidance (ICD-10-PCS; 2018-09-25)
PROC: B5181ZA Fluoroscopy of Superior Vena Cava using Low Osmolar Contrast, Guidance (ICD-10-PCS; 2018-09-25)
DX: L02.413 Cutaneous abscess of right upper limb (principal); G89.18 Other acute postprocedural pain; G20 Parkinson's disease; E78.5 Hyperlipidemia, unspecified; I10 Essential (primary) hypertension; G47.30 Sleep apnea, unspecified; E03.9 Hypothyroidism, unspecified; F32.9 Major depressive disorder, single episode, unspecified; I87.2 Venous insufficiency (chronic) (peripheral); E78.00 Pure hypercholesterolemia, unspecified; L30.9 Dermatitis, unspecified; Z88.0 Allergy status to penicillin; Z79.899 Other long term (current) drug therapy; Z98.49 Cataract extraction status, unspecified eye; Z82.49 Family history of ischemic heart disease and other diseases of the circulatory system; Z80.9 Family history of malignant neoplasm, unspecified
CPT/HCPCS: 01610; 36415; 36569; 76937; 77001; 80048; 80053; 80202; 81001; 82565; 82803; 83605; 85025; 85027; 85610; 85652; 85730; 86140; 87040; 87070; 87075; 87077; 87086; 87186; 87205; 93005; 93010; 96361; 96374; 96375; 99285; J0131; J0330; J1100; J1170; J1642; J2250; J2270; J2405; J2704; J3010; J3370; J3490; J7030; J7060; J7120